=== PATIENT | male | born 1940 | race Caucasian/White ===

== ENCOUNTER 2022-10-27 17:12 | Observation (INO) | payer OTHER, SELFPAY ==
[2022-10-27] VITALS (9 sets, daily range): BP systolic 126–178; BP diastolic 63–97; PULSE 68–95; RESP 16–18; TEMP 36.3–36.6; O2SAT 94–98; BMI 25.8; BMI 26.6
--- NOTE | 2022-10-27 17:36 | ED_ITS ---
HPI - Weakness General Time Seen by Provider: 17:36 Date Seen: 10/27/22 Chief complaint: Weakness Stated complaint: Slurred speech, numb on right side Time Seen by Provider: 10/27/22 17:14 Source: patient and RN notes reviewed Mode of arrival: ambulatory Limitations: no limitations History of Present Illness HPI Narrative: Patient is an 82-year-old male that was found have slurred speech in the context of right hand numbness tingling that lasted maybe about a 1/2 hour. He came up stairs from where he was working. When ask him what he was doing, he last and states probably standing around. I note that he does look to his a lot when being question during his interview. He has since resolved. He has never had a history of a stroke. He is on Eliquis for history of atrial fibrillation with subsequent ablation and pacemaker placement. He did not feel any irregularity of his heart, no chest pain. He has a remote history of an GA in 2002. He does not feel any right hand numbness or tingling at this time. He is conversive and talkative, feels his speech is normal right now but she states it was definitely extremely slurred at the time. He obviously was able to walk as he came up the stairs. As far as functionality of his hand at the time, it is unknown. Denies any trauma or falls. MD Complaint: numbness and tingling Related Data Allergies Allergy/AdvReac Type Severity Reaction Status Date / Time amiodarone AdvReac Severe Anaphylaxis Verified 10/27/22 17:20 Review of Systems Status of ROS: Reports: 10 or more systems reviewed and unremarkable except as noted in History and below Exam Const: Vital Signs, click to edit/add: Vital Signs - 24 hr 10/27/22 17:20 10/27/22 17:42 10/27/22 18:01 Temperature 97.3 F L Pulse Rate 70 Pulse Rate [Right Pulse Oximeter] 95 Respiratory Rate 18 18 Blood Pressure 131/75 Blood Pressure [Ri ght Upper Arm] 159/83 H Pulse Oximetry 97 98 98 Oxygen Delivery Me thod Room Air Documenting provider has reviewed patient's vital signs: yes Common normals: no apparent distress, average body habitus, oriented x3, no limitations, healthy appearing and alert General appearance: cooperative, comfortable, well kempt and well developed HENMT: Common normals: normocephalic, head/scalp atraumatic, hearing grossly normal bilaterally, external ears normal, external nose normal, moist oral mucous membranes, oropharynx normal (Tongue protrudes midline), dentition normal and gingiva normal Head and scalp: normocephalic and atraumatic Nose: external nose normal External ear: external ears normal Eye: Common normals: PERRL, EOMs intact bilaterally, conjunctivae normal, no scleral icterus and normal visual navarro by confrontation Conjunctiva: conjunctiva(e) normal Pupil: PERRL Neck & C-Spine: Common normals: full ROM, no lymphadenopathy, supple, no meningeal signs and no JVD Resp: Common normals: normal respiratory effort, no retractions, no use of accessory muscles and clear to auscultation bilaterally Effort & inspection: able to speak in complete sentences Auscultation: clear to auscultation bilaterally Cardio: Common normals: no JVD, regular rate, regular rhythm, S1 normal heart sound, S2 normal heart sound, no gallops, no clicks and no murmurs Rate: regular rate Rhythm: regular rhythm Heart sounds: S1 normal and S2 normal GI: Common normals: Normal to inspection, nondistended, normoactive bowel sounds present, soft to palpation, non-tender, no hepatosplenomegaly and no masses Palpation: soft and no hepatosplenomegaly Extremity: Common normals: normal to inspection, full ROM and no pedal edema Neuro: [place] Coma Scale: document GCS findings [place] coma scale eye opening: Spontaneous (4) [place] coma scale verbal response: Orientated (5) [place] coma scale motor response: Obey commands (6) [place] coma scale total score: 15 Common normals: oriented x3, CN's II-XII intact bilaterally, moves all extremities, no focal motor deficits, no sensory deficits noted and gait normal Sensorium/orientation: alert Meningeal signs: no meningeal signs Coordination/balance: Normal rapid alternating movements of the distal upper extremity present (Neuro) (Is slower and deliberate in his movements but not ataxic/no dysmetria) Speech: speech normal Coordination: rapid alternating movement UE normal (Is slower and deliberate in his movements but not ataxic/no dysmetria) Other: Current NIH is 0, patient's symptoms had resolved. 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 Psych: Common normals: mental status grossly normal Appearance: well kempt Course Course Hospital Course: His symptoms have resolved, they are where to notify us if anything reoccurs. He will go get a noncontrast head CT as part of stroke evaluation. He will be on cardiac monitoring and pulse oximetry. We will get appropriate labs. Once his head CT has been done, I will talk to Stroke Neurology. Patient does have a moderate ABCD2 score of 4 points. Reevaluation(s) Reevaluation #1: Reviewed with patient and his that head CT showing no evidence of acute stroke but that we do believe his symptoms likely are related to a TIA. Patient does have a pacemaker, my plan with the stroke neurologist may not work as I do not see him having a pacemaker compatible with our MRI machine. I will have to call the neurologist back. Have discussed aspirin use as an anti-platelet agent . Have reviewed the rationale for this. Did review the possible increased risk of bleeding being on both the Eliquis and an 81 mg aspirin. At this time, benefit likely outweighs his risk. Time: 18:36 Consultations Consultation #1: Spoke with Dr. Garcia stroke neurologist on-call for [facility]. Reviewed the case. I do not have the formal reading on the head CT and will call him back if it is different than my preliminary assessment of being negative for acute stroke or bleed. He agreed at this point with not doing the CTA of head or neck as it is not likely going to change things. We have a patient on Eliquis with underlying history of atrial fibrillation. He thought that this likely would be small-vessel process versus embolic given the patient's anticoagulation. He would consider doing an 81 mg aspirin daily. He recommended an MRI without contrast, it is not likely that we will be able to get that until Saturday. He felt it prudent to hold patient over until then if possible. 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 Patient is on Lipitor 40 mg per his chart. He also recommended obtaining a lipid panel. He does feel that this certainly is consistent with a TIA. Time: 18:08 Consultation #2: Reviewed the pacemaker situation with Dr. Garcia. He recommended observing this patient overnight and if no changes, discharge home tomorrow to get set up for an appropriate outpatient MRI that is cardiac stay for him. This will likely have to be arranged through his primary care provider. He also recommended maximizing his lipid control, if LDL greater than 100 increasing his statin dosage. Time: 19:19 Consultation #3: Spoke with hospitalist Dr. Em, he will accept patient. Time: : Vital Signs Vital signs: Initial Vital Signs Temperature 97.3 F L 10/27/22 17:20 Temperature Source Temporal Artery Scan 10/27/22 17:20 Pulse Rate 95 10/27/22 17:20 Pulse Rhythm Regular 10/27/22 17:20 Pulse Strength 3+ Normal 10/27/22 17:20 Respiratory Rate 18 10/27/22 17:20 Blood Pressure 159/83 H 10/27/22 17:20 Blood Pressure Mean 108 10/27/22 17:20 Blood Pressure Position Sitting 10/27/22 17:20 Pulse Oximetry 97 10/27/22 17:20 Oxygen Delivery Method Room Air 10/27/22 17:20 Vital Signs Temperature 97.3 F L 10/27/22 17:20 Pulse Rate 95 10/27/22 17:20 Respiratory Rate 18 10/27/22 17:20 Blood Pressure 159/83 H 10/27/22 17:20 Pulse Oximetry 97 10/27/22 17:20 Oxygen Delivery Method Room Air 10/27/22 17:20 Temperature 97.3 F L 10/27/22 17:20 Pulse Rate 70 10/27/22 18:01 Respiratory Rate 18 10/27/22 18:01 Blood Pressure 131/75 10/27/22 18:01 Pulse Oximetry 98 10/27/22 18:01 Oxygen Delivery Method Room Air 10/27/22 17:20 MDM - Weakness Lab Data Attestation: I reviewed the patient's lab results. Labs: Lab Results 10/27/22 10/27/22 Range/Units 17:43 17:48 WBC 8.93 (4.50-11.00) K/uL RBC 4.06 L (4.30-5.90) m/uL Hgb 12.3 L (13.5-17.5) gm/dL Hct 36.3 L (37.0-53.0) % MCV 89 (80-100) fL MCH 30 (26-34) pg MCHC 34 (32-36) gm/dL RDW Coeff of Niyah 13.0 (11.5-15.5) % Plt Count 230 (140-440) K/uL Neut % (Auto) 57.4 (42.0-72.0) % Lymph % (Auto) 25.3 (20-44) % [place] % (Auto) 9.7 (0.0-11.0) % Eos % (Auto) 6.8 (0.0-7.0) % Baso % (Auto) 0.4 (0.0-3.0) % Neut # (Auto) 5.11 (1.7-7.0) K/uL Lymph # (Auto) 2.26 (0.90-2.90) K/uL [place] # (Auto) 0.90 (0.00-0.90) K/UL Eos # (Auto) 0.61 H (0.00-0.50) K/uL Baso # (Auto) 0.04 (0.00-0.30) K/uL Sodium 138 (135-149) mmol/L Potassium 4.9 (3.6-5.1) mmol/L Chloride 104 (96-114) mmol/L Carbon Dioxide 26 (20-32) mmol/L BUN 32 H (7-30) mg/dL Creatinine 1.1 (0.5-1.5) mg/dL Estimated Creat Clear 48.33 Estimated GFR 68 ml/min Glucose 70 (60-115) mg/dL Calcium 9.4 (8.4-10.6) mg/dL Total Bilirubin 0.5 (0.1-1.5) mg/dL AST 23 (12-35) U/L ALT 20 (4-50) U/L Alkaline Phosphatase 65 (40-150) U/L C-Reactive Protein < 0.5 L (0.5-1.0) mg/dL Total Protein 7.6 (6.0-8.3) g/dL Albumin 4.5 (3.3-5.0) g/dL SARS-CoV-2 (PCR) Negative SARS-CoV-2 (Negative) Imaging Data CT scan - head: Attestation: I have reviewed the pertinent imaging results. My impression: I appreciate no intracranial mass, no acute bleed, no acute infarct. Await Radiology over-read. Radiologist's impression: Patient: TORY CHOI Facility:?[facility] Patient ID:?[id number] Site Patient ID:?[id number]. Site :?[id number] Study:?CT Head Stroke protocol-10/27/2022 6:01:48 PM Ordering Physician:Arielle Martinez Final Report: INDICATION: Episode of slurred speech and right hand numbness/tingling. CT HEAD WITHOUT CONTRAST TECHNIQUE: Multiple axial CT images were performed through the head without intravenous contrast administration. COMPARISON: No previous studies are currently available for comparison. FINDINGS: No acute intracranial hemorrhage is identified. No extra-axial collections are evident and there is no mass effect or midline shift. There is mild diffuse age-related brain atrophy. Ventricular size and configuration are within normal limits for the patient`s age. Estrada-white differentiation is within normal limits. There is patchy hypodensity in the periventricular white matter, a nonspecific finding which most likely reflects chronic small vessel ischemic change. Intracranial atherosclerotic vascular calcifications are noted. Osseous structures are within normal limits and no fractures are seen. Included portions of the paranasal sinuses and mastoid air cells are normally aerated. IMPRESSION: 1. No acute intracranial abnormality identified. 2. Mild age-related brain atrophy, white matter hypodensity consistent with chronic small vessel ischemic change, and intracranial atherosclerotic vascular calcifications. ROLAN DICKERSON MD [facility] Please note that all CT scans at this facility use dose modulation, iterative reconstruction, and/or weight-based dosing when appropriate to reduce radiation dose to as low as reasonably achievable. Dictated by: Peyman Dickerson MD @ 10/27/2022 18:28:35 (Electronic Signature) Note results reviewed at 6:30 p.m.. ECG Data Attestation: I personally reviewed and interpreted this ECG as follows: (Atrial paced rhythm, 70 beats per minute. Q-waves through the anterior precordial lead with flipped T-waves. Some artifact. No definitive active ischemia. QT corrected 455 milliseconds.) ECG interpretation date: 10/27/22 ECG interpretation time: 17:47 Prior ECG tracings: not available for review Critical Care Time Critical Care Time Critical Care Time: No Discharge Plan Discharge Clinical Impression: TIA (transient ischemic attack) Patient Disposition: Admitted As Inpatient Condition: Stable Follow Up/Referrals: Hoang Agee MD [Primary Care Provider] -
--- NOTE | 2022-10-27 17:42 | CRLHL7_ITS ---
For Patients: As a result of the Century Cures Act, medical imaging exams and procedure reports are released immediately into your electronic medical record. You may view this report before your referring provider. If you have questions, please contact your health care provider. INDICATION: Episode of slurred speech and right hand numbness/tingling. CT HEAD WITHOUT CONTRAST TECHNIQUE: Multiple axial CT images were performed through the head without intravenous contrast administration. COMPARISON: No previous studies are currently available for comparison. FINDINGS: No acute intracranial hemorrhage is identified. No extra-axial collections are evident and there is no mass effect or midline shift. There is mild diffuse age-related brain atrophy. Ventricular size and configuration are within normal limits for the patient`s age. Estrada-white differentiation is within normal limits. There is patchy hypodensity in the periventricular white matter, a nonspecific finding which most likely reflects chronic small vessel ischemic change. Intracranial atherosclerotic vascular calcifications are noted. Osseous structures are within normal limits and no fractures are seen. Included portions of the paranasal sinuses and mastoid air cells are normally aerated. IMPRESSION: 1. No acute intracranial abnormality identified. 2. Mild age-related brain atrophy, white matter hypodensity consistent with chronic small vessel ischemic change, and intracranial atherosclerotic vascular calcifications. ROLAN DICKERSON MD [facility] Please note that all CT scans at this facility use dose modulation, iterative reconstruction, and/or weight-based dosing when appropriate to reduce radiation dose to as low as reasonably achievable. Dictated by: Peyman Dickerson MD @ 10/27/2022 18:28:35 (Electronically Signed)
[2022-10-27 17:49] LABS: Basophils Absolute Auto 0.04 K/uL (0.00-0.30); Basophils Percent Auto 0.4 % (0.0-3.0); Eosinophils Absolute Auto 0.61 K/uL (0.00-0.50); Eosinophils Percent Auto 6.8 % (0.0-7.0); Hematocrit 36.3 % (37.0-53.0); Hemoglobin* 12.3 gm/dL (13.5-17.5); Immature Granulocytes Abs Auto 0.04 K/uL (0.00-0.30); Immature Granulocytes Pct Auto 0.4 %; Lymphocytes Absolute Auto 2.26 K/uL (0.90-2.90); Lymphocytes Percent Auto 25.3 % (20-44); Mean Corpuscular HGB Conc 34 gm/dL (32-36); Mean Corpuscular Hemoglobin 30 pg (26-34); Mean Corpuscular Volume 89 fL (80-100); Monocytes Percent Auto 9.7 % (0.0-11.0); Neutrophils Absolute Auto 5.11 K/uL (1.7-7.0); Neutrophils Percent Auto 57.4 % (42.0-72.0); Platelet Count* 230 K/uL (140-440); Red Blood Count 4.06 m/uL (4.30-5.90); White Blood Count* 8.93 K/uL (4.50-11.00)
[2022-10-27 17:54] LABS: Chloride* 104 mmol/L (96-114); Slide Review Reflex No
[2022-10-27 17:55] LABS: Albumin* 4.5 g/dL (3.3-5.0); Potassium* 4.9 mmol/L (3.6-5.1); Sodium* 138 mmol/L (135-149)
[2022-10-27 17:58] LABS: Alanine Aminotransferase* 20 U/L (4-50); Alkaline Phosphatase* 65 U/L (40-150); Aspartate Amino Transferase* 23 U/L (12-35); Bilirubin Total* 0.5 mg/dL (0.1-1.5); Blood Urea Nitrogen* 32 mg/dL (7-30); Calcium* 9.4 mg/dL (8.4-10.6); Carbon Dioxide* 26 mmol/L (20-32); Creatinine* 1.1 mg/dL (0.5-1.5); Est. Creatinine Clearance* 48.33; Estimated Glomerular Filt Rate 68 ml/min; Glucose* 70 mg/dL (60-115); Total Protein* 7.6 g/dL (6.0-8.3)
[2022-10-27 18:08] LABS: C Reactive Protein* < 0.5 mg/dL (0.5-1.0)
[2022-10-27 18:33] LABS: SARS PCR* Negative SARS-CoV-2 (Negative)
[2022-10-27] MEDS: ASPIRIN 81 MG TAB.CHEW PO (19:05)
--- NOTE | 2022-10-27 19:46 | ED.NURSE ---
Pt is eating dinner at this time, a ham sandwich and chicken noodle soup. Pt tolerating well. Pt's wants to know if pt will be getting medications upstairs on med/surg and this nurse verified pt would be getting his nightly meds upstairs.
--- NOTE | 2022-10-27 19:54 | P.IMHP_ITS ---
Hospitalist- H&P: HPI History of Present Illness Date Seen: 11/23/22 Chief complaint: Slurred speech, numb on right side Narrative: Yosi Watson is a 82 year old male with PMhx of hypothyroidism, T2DM, CAD, AFlutter/Fib (on eliquis), GERD, ELISE presenting for right hand numbness. Earlier today he had episode of right hand and right face numbness. He denied arm weakness, slurred speech, headache and dizziness. He denies chest pain and palpitations. He presented to ED where CT head showed no acute findings. He has a pacemaker and is unable to get a MRI at [facility] per ED provider. His case was discussed with Stroke Neurology with recommendations for observation admission, tele monitoring, checkling lipid panel/a1c, neuro checks and outpatient MRI Brain if no acute events overnight. He currently feels back to baseline state. CT head IMPRESSION:? 1. No acute intracranial abnormality identified. 2. Mild age-related brain atrophy, white matter hypodensity consistent with chronic small vessel ischemic change, and intracranial atherosclerotic vascular calcifications. PMHx 11/30/2021 Hypothyroidism (acquired) 11/30/2021 Hypoxia 11/30/2021 Interstitial lung disease (HC) Date Unknown Ampullary adenoma Date Unknown Atrial flutter, paroxysmal (HC) Date Unknown Ibarra's esophagus Date Unknown Coronary atherosclerosis of unspecified type of vessel, [place] or graft Date Unknown Dyslipidemia Date Unknown GERD (gastroesophageal reflux disease) Date Unknown Hypertension Date Unknown ELISE (obstructive sleep apnea) Date Unknown Tachy-aftab syndrome (HC) Date Unknown Type II or unspecified type diabetes mellitus without mention of complication, not stated as uncontrolled Date Unknown Wide-complex tachycardia Surgical History? 13 items 10/06/2020 Esophagoscopy / egd 09/06/2020 Ercp 08/18/2020 EGD with Bicap [Other] 2019 Cataract extraction 04/16/2019 Esophagoscopy / egd 11/2018 Esophagogastroduodenoscopy 07/07/2014 Esophagogastroduodenoscopy 11/03/2013 Esophagogastroduodenoscopy [id number] Esophagogastroduodenoscopy Date Unknown Colonoscopy diagnostic Date Unknown Endoscopy Date Unknown Esophagogastroduodenoscopy Date Unknown Pacemaker placement Tobacco History? 6 items Smoking Status Former Started 07/22/1956 - 07/22/1966 Quit Types Cigarettes from 07/22/1956 to 07/22/1966 Amount Average: 2.0 packs/day for 10.0 years; Pack years: 20.0 Pack Year History 0 packs/day, Started 07/22/1966; 2 packs/day, 07/22/1956 - 07/22/1966 (10.0 years) Smokeless Tobacco Status Never Vaping/E-Liquid Use Questions Responses Vaping/E-Liquid Use Never User Counseling Given? Yes Review of Systems Status of ROS: Reports: 10 or more systems reviewed and unremarkable except as noted in History and below [facility] Medical History (Updated 11/13/22 @ 08:05 by Khushbu Rowan ~ PSR) Ampullary adenoma ?D13.5 - Benign neoplasm of extrahepatic bile ducts (ICD-10) Pacemaker ?Z95.0 - Presence of cardiac pacemaker (ICD-10) Hypothyroidism ?E03.9 - Hypothyroidism, unspecified (ICD-10) Interstitial lung disease ?J84.9 - Interstitial pulmonary disease, unspecified (ICD-10) ELISE on CPAP ?G47.33 - Obstructive sleep apnea (adult) (pediatric) (ICD-10) ?Z99.89 - Dependence on other enabling machines and devices (ICD-10) DM2 (diabetes mellitus, type 2) ?E11.9 - Type 2 diabetes mellitus without complications (ICD-10) Heart failure with preserved ejection fraction ?I50.30 - Unspecified diastolic (congestive) heart failure (ICD-10) Paroxysmal atrial flutter ?I48.92 - Unspecified atrial flutter (ICD-10) Ibarra esophagus ?K22.70 - Ibarra's esophagus without dysplasia (ICD-10) TIA (transient ischemic attack) ?G45.9 - Transient cerebral ischemic attack, unspecified (ICD-10) Surgical History (Updated 10/28/22 @ 12:08 by Anisha Robledo MD) History of esophagogastroduodenoscopy (EGD) ?Z98.890 - Other specified postprocedural states (ICD-10) Social History Smoking Status: Never smoker Do you use any of these nicotine containing products: None Second hand tobacco smoke exposure: No How often do you have a drink containing alcohol: never AUDIT-C Alcohol total score: 0 Non-prescribed substance use: denies use Caffeine: No Meds Home Medications and Allergies Home Medications Medication Instructions Recorded Confirmed Type apixaban 5 mg tablet (Eliquis) 5 mg PO BID 10/28/22 10/28/22 History glipizide 10 mg tablet 10 mg PO DAILY 10/28/22 10/28/22 History levothyroxine 50 mcg tablet 50 mcg PO DAILY 10/28/22 10/28/22 History metformin 500 mg tablet,extended 500 mg PO BID 10/28/22 10/28/22 History release 24 hr metoprolol succinate 50 mg 50 mg PO DAILY 10/28/22 10/28/22 History tablet,extended release 24 hr omeprazole 20 mg capsule,delayed 20 mg PO BID 10/28/22 10/28/22 History release sotalol 120 mg tablet 120 mg PO BID 10/28/22 10/28/22 History tamsulosin 0.4 mg capsule 0.4 mg PO DAILY 10/28/22 10/28/22 History Home Medication Comments: med rec pending Allergies Allergy/AdvReac Type Severity Reaction Status Date / Time amiodarone AdvReac Severe Anaphylaxis Verified 10/27/22 17:20 Exam Narrative: Exam Narrative: Gen: no acute distress HEENT: NCAT EOMI mmm Neck: Supple CV: RRR normal s1 s2 Lungs: CTAB Abd: Soft,nt, nd Neuro: Alert, oriented, CN grossly intact; nonfocal screening exam Psych: appropriate affect MSK: age appropriate muscle mass Skin; Warm, dry no rash on face Ext: trace pedal edema Const: Vital Signs, click to edit/add: Vital Signs - 24 hr 10/27/22 17:20 10/27/22 17:42 10/27/22 18:01 Temperature 97.3 F L Pulse Rate 70 Pulse Rate [Right Pulse Oximeter] 95 Respiratory Rate 18 18 Blood Pressure 131/75 Blood Pressure [Ri ght Upper Arm] 159/83 H Pulse Oximetry 97 98 98 Oxygen Delivery Me thod Room Air 10/27/22 19:47 10/27/22 19:34 10/27/22 17:48 Temperature Pulse Rate 70 68 68 Pulse Rate [Right Pulse Oximeter] Respiratory Rate 18 18 18 Blood Pressure 161/85 H 151/84 H 161/85 H Blood Pressure [Ri ght Upper Arm] Pulse Oximetry 98 98 98 Oxygen Delivery Me thod 10/27/22 17:42 Temperature Pulse Rate 72 Pulse Rate [Right Pulse Oximeter] Respiratory Rate 16 Blood Pressure 178/97 H Blood Pressure [Ri ght Upper Arm] Pulse Oximetry 98 Oxygen Delivery W[place] thod Hospitalist - H&P: Result Labs Labs: Short CBC 10/27/22 Range/Units 17:43 WBC 8.93 (4.50-11.00) K/uL Hgb 12.3 L (13.5-17.5) gm/dL Hct 36.3 L (37.0-53.0) % Plt Count 230 (140-440) K/uL BMP 10/27/22 17:43 Sodium 138 Potassium 4.9 Chloride 104 Carbon Dioxide 26 BUN 32 H Creatinine 1.1 Glucose 70 Calcium 9.4 Liver Function 10/27/22 Range/Units 17:43 Total Bilirubin 0.5 (0.1-1.5) mg/dL AST 23 (12-35) U/L ALT 20 (4-50) U/L Alkaline Phosphatase 65 (40-150) U/L Albumin 4.5 (3.3-5.0) g/dL Assessment and Plan Assessment and plan (1) TIA (transient ischemic attack): Status: Inactive Plan Yosi Watson is a 82 year old male with PMhx of hypothyroidism, T2DM, CAD, AFlutter/Fib (on eliquis), GERD, ELISE presenting for right hand numbness. Earlier today he had episode of right hand and right face numbness that has since resolved. He presented to ED where CT head showed no acute findings. He has a pacemaker and is unable to get a MRI at [facility] per ED provider. His case was discussed with Stroke Neurology with recommendations for observation admission, tele monitoring, checkling lipid panel/a1c, neuro checks and outpatient MRI Brain if no acute events overnight. He currently feels back to baseline state. 1. Presumed TIA; currently back to baseline state 2. Hx of Hypothyroidism 3. Hx of T2DM; hold metformin 4. Hx of CAD 5. Hx of Aflutter/Fib on Eliquis 6. Hx of GERD 7. Hx of ELISE Plan -admit to obs -resume home eliquis tonight -tele -neuro checks -permissive htn -lipid panel and a1c -outpatient MRI -anticipated discharge tomorrow med rec pending will need review [facility]
--- NOTE | 2022-10-27 22:47 | PC.NURSE ---
pt to floor at 2014. Ambulates indep. Pleasant and cooperative. States he no longer feels tingly sensation in his hand and that his speech is back to baseline. Tele = Paced. Pt states he has ELISE, will monitor O2 when pt asleep.
[2022-10-28] MEDS: APIXABAN 5 MG TABLET PO ×2 (01:01→08:49)
[2022-10-28 03:00] VITALS: RESP 18; TEMP 36.7; O2SAT 95
--- NOTE | 2022-10-28 05:44 | PC.NURSE ---
Shift note: Pt is doing well. No numbness reported this shift. Pt had adequate sleep. Able to walk to the BR by himself without any help. Pleasant and cooperate with care. Vitally stable.
[2022-10-28 07:00] VITALS: BP 154/87; RESP 16; TEMP 36.7; O2SAT 95
--- NOTE | 2022-10-28 07:45 | PM.DS1 ---
DS: Providers Provider Date Seen: 10/28/22 Date of admission: 10/27/22 20:09 Primary care physician: Hoang Agee MD Admitting Clinician: Wilian Em MD Attending Physician on discharge: Anisha Robledo MD Date of Discharge: 10/28/22 DS: Diagnosis Discharge Diagnosis (1) TIA (transient ischemic attack): Status: Acute (2) Heart failure with preserved ejection fraction: Status: Acute Problem details: - last stress Echo 09/2021: IMPRESSION 1. Adequate pharmacologic stress test with regadenoson. 2. The pharmacologic stress ECG was nondiagnostic due to paced rhythm. 3. Myocardial perfusion was abnormal. There was a medium-sized area of moderate to severe transmural infarction in the apical anterior and anteroseptal quintanilla. 4. No significant ischemia was identified. 5. Left ventricular cavity size was normal (resting EDV 108 ml). 6. Overall left ventricular systolic function was abnormal with regional akinesis of the apical anterior and septal quintanilla and the apex. The stress LVEF was calculated to be 54 %. 7. Stress myocardial blood flow was abnormal at 1.0 ml/min/g and myocardial flow reserve was abnormal at 1.3. 8. Compared to prior study of 12/03/2015, there is no significant change. (3) DM2 (diabetes mellitus, type 2): Status: Acute Problem details: - A1C <6.4 10/2022 (4) ELISE on CPAP: Status: Acute (5) Interstitial lung disease: Status: Deleted (6) Pacemaker: Status: Acute DS: Summary Hospital Course Hospital Course: 82-year-old male, presented to the ER on 10/27 with concerns of upper extremity weakness and dysarthria. Imaging in the emergency room was reassuring, Stroke Neurology recommended overnight monitoring with telemetry and outpatient evaluation with MRI and echocardiogram if patient remained stable. When I see Yosi on hospital day 1, he is dressed and ready to go home. He has no concerns for the hospitalist team and feels back to baseline; telemetry and vital signs reassuring overnight. His PCP is Dr. Agee locally. He will see Dr. Agee in 7-10 days to schedule an outpatient MRI and echocardiogram. The only change made to home medications upon discharge was doubling his statin from 40-80 mg, no other changes made during stay. Status at Discharge Functional status at discharge: independent ambulation Overall status at discharge: patient is back to baseline Time Spent with Patient Time attestation: Total time spent providing and/or coordinating discharge services: Time spent: Greater than 30 minutes Specific discharge activities: Medication reconciliation, care coordination, chart review Exam Narrative: Exam Narrative: GEN: Alert and oriented, sitting comfortably in bedside chair HEENT: No facial droop, PERRL and EOMIs bilaterally, no scleral icterus CV: RRR, No concerning murmurs, no carotid bruits R: LCTA bilaterally without concerning wheezing, rales, or rhonchi Ext: wwp, no concerning edema Skin: No concerning skin lesions or rashes on exposed skin Neuro: Normal sensation, speech fluent, no dysmetria on [id number] testing, no pronator drift, normal in symmetric rapid alternating movements, gait normal Psych: Appropriate Const: Vital Signs, click to edit/add: Vital Signs - 24 hr 10/27/22 17:20 10/27/22 17:42 10/27/22 18:01 Temperature 97.3 F L Pulse Rate 70 Pulse Rate [Right Pulse Oximeter] 95 Respiratory Rate 18 18 Blood Pressure 131/75 Blood Pressure [Le ft Arm] Blood Pressure [Ri ght Upper Arm] 159/83 H Pulse Oximetry 97 98 98 Oxygen Delivery Ut thod Room Air 10/27/22 19:47 10/27/22 19:34 10/27/22 17:48 Temperature Pulse Rate 70 68 68 Pulse Rate [Right Pulse Oximeter] Respiratory Rate 18 18 18 Blood Pressure 161/85 H 151/84 H 161/85 H Blood Pressure [Le ft Arm] Blood Pressure [Ri ght Upper Arm] Pulse Oximetry 98 98 98 [facility] 10[facility] 17:42 10/27/22 21:24 10/27/22 21:24 Temperature Pulse Rate 72 Pulse Rate [Right Pulse Oximeter] Respiratory Rate 16 18 18 Blood Pressure 178/97 H Blood Pressure [Le ft Arm] 174/97 H Blood Pressure [Ri ght Upper Arm] Pulse Oximetry 98 94 94 [facility] Room Air 10/27/22 21:25 10/27/22 23:00 10/27/22 23:00 Temperature Pulse Rate 70 70 Pulse Rate [Right Pulse Oximeter] Respiratory Rate 18 Blood Pressure Blood Pressure [Le ft Arm] Blood Pressure [Ri ght Upper Arm] Pulse Oximetry Oxygen Delivery Me thod 10/27/22 23:00 10/28/22 03:00 Temperature 97.8 F 98.1 F Pulse Rate Pulse Rate [Right Pulse Oximeter] Respiratory Rate 18 18 Blood Pressure Blood Pressure [Le ft Arm] 126/63 Blood Pressure [Ri ght Upper Arm] Pulse Oximetry 95 95 Oxygen Delivery Me thod Room Air Room Air DS: Data Data Completed and Pending Labs on day of discharge: Labs from last 24 hours 10/28/22 10/27/22 10/27/22 06:30 17:48 17:43 WBC 8.93 RBC 4.06 L Hgb 12.3 L Hct 36.3 L MCV 89 MCH 30 MCHC 34 RDW Coeff of Niyah 13.0 Plt Count 230 Neut % (Auto) 57.4 Lymph % (Auto) 25.3 [place] % (Auto) 9.7 Eos % (Auto) 6.8 Baso % (Auto) 0.4 Neut # (Auto) 5.11 Lymph # (Auto) 2.26 [place] # (Auto) 0.90 Eos # (Auto) 0.61 H Baso # (Auto) 0.04 Sodium 138 Potassium 4.9 Chloride 104 Carbon Dioxide 26 BUN 32 H Creatinine 1.1 Estimated Creat Clear 48.33 Estimated GFR 68 Glucose 70 Hemoglobin A1c Pending Calcium 9.4 Total Bilirubin 0.5 AST 23 ALT 20 Alkaline Phosphatase 65 C-Reactive Protein < 0.5 L Total Protein 7.6 Albumin 4.5 Triglycerides Pending Cholesterol Pending LDL Cholesterol, Calc Pending HDL Cholesterol Pending SARS-CoV-2 (PCR) Negative SARS-CoV-2 Discharge Plan Discharge Disposition: Home, Self-Care Date of Admission: 10/27/22 20:09 Attending Provider on Discharge: Anisha Robledo Primary Care Provider: Hoang Agee Condition: Stable Anticipated Discharge Date/Time: 10/28/22 07:42 Discharge Medications: New atorvastatin 80 mg tablet 80 mg PO QHS Qty: 90 3RF Continued metoprolol succinate 50 mg tablet extended release 24 hr 50 mg PO DAILY glipizide 10 mg tablet 10 mg PO DAILY sotalol 120 mg tablet 120 mg PO BID tamsulosin 0.4 mg capsule 0.4 mg PO DAILY levothyroxine 50 mcg tablet 50 mcg PO DAILY omeprazole 20 mg capsule,delayed release(DR/EC) 20 mg PO BID metformin 500 mg tablet extended release 24 hr 500 mg PO BID Eliquis 5 mg tablet 5 mg PO BID Discontinued atorvastatin 40 mg tablet 40 mg PO DAILY Discharge Orders: Discharge Order (Routine); Ordered 10/28/22 Ordered By: Anisha Robledo Patient Education: Transient Ischemic Attack (DC) Additional Instructions: See Dr. Agee next week for a hospital followup and to schedule your MRI. You need to DOUBLE your atorvastatin (Lipitor) from 40mg to 80mg - just take 2 of the tabs that you have at home and Dr. Agee can send in a new prescription. Activity Level: No strenuous activity Discharge Diet: Heart Healthy (2 gm sodium, low fat) Follow Up Appointments: Hoang Agee MD [Primary Care Provider] - 11/14/22 10:00 am ([facility] Schedule [facility] and Echo ) [facility] Discharge Comments: Schedule MRI and Echo
[2022-10-28 07:49] LABS: Cholesterol* 128 mg/dL (90-199); Triglycerides* 210 mg/dL (40-149)
[2022-10-28 07:50] LABS: HDL Cholesterol* 35 mg/dL (>=40); LDL Cholesterol Calculated 51 mg/dL (<100)
[2022-10-28 08:00] VITALS: BP 161/85; PULSE 70; RESP 18; TEMP 36.7
[2022-10-28] MEDS: LEVOTHYROXINE 50 MCG TABLET PO (08:48)
[2022-10-28] MEDS: glipiZIDE 5 MG TABLET 10 MG PO (08:48)
[2022-10-28] MEDS: OMEPRAZOLE 20 MG CAPSULE DR PO (08:48)
[2022-10-28] MEDS: METFORMIN ER 500 MG PO (08:48)
[2022-10-28] MEDS: TAMSULOSIN HCL 0.4 MG CAPSULE PO (08:48)
[2022-10-28] MEDS: METOPROLOL SUCCINATE (XL) 50 MG TAB PO (08:49)
[2022-10-28] MEDS: SOTALOL HCL 120 MG TABLET PO (08:49)
--- NOTE | 2022-10-28 09:43 | PC.NURSE ---
Discharge: pt. discharged at 0920 accompanied by spouse. Pt. alert and oriented x4. Pt. VSS, BP slightly elevated, BG 148 no insulin required, Afebrile and denies pain, N/V/SOB/ Pt's IV removed intact. Discharge instructions given and signed. Pt. and spouse verbalized understanding of instructions. Belongings sheet signed.
[2022-10-28 11:08] LABS: Hemoglobin A1C* 6.38 % (0-5.6)
== END 2022-10-28 09:20 | disposition home or self-care (01) ==
LOC: ED 19:26 → MEDSURG 20:10
PROVIDERS: Admitting Provider Hospitalist; Emergency Provider Family Medicine; PCP Family Medicine; Visit Provider Hospitalist
DX: G45.9 Transient cerebral ischemic attack, unspecified; I50.31 Acute diastolic (congestive) heart failure; I11.0 Hypertensive heart disease with heart failure; K21.9 Gastro-esophageal reflux disease without esophagitis; R47.1 Dysarthria and anarthria; R20.0 Anesthesia of skin; E78.5 Hyperlipidemia, unspecified; E03.9 Hypothyroidism, unspecified; M62.81 Muscle weakness (generalized); I48.91 Unspecified atrial fibrillation; E11.9 Type 2 diabetes mellitus without complications; G47.33 Obstructive sleep apnea (adult) (pediatric); Z99.89 Dependence on other enabling machines and devices; Z79.84 Long term (current) use of oral hypoglycemic drugs; Z79.01 Long term (current) use of anticoagulants; Z86.79 Personal history of other diseases of the circulatory system; Z87.891 Personal history of nicotine dependence; Z98.890 Other specified postprocedural states; Z95.0 Presence of cardiac pacemaker; I25.2 Old myocardial infarction
CPT/HCPCS: 36415; 70450; 80053; 80061; 82962; 83036; 84484; 85025; 86140; 87635; 93005; 94761; 99284; 99285; G0378; A9270

== ENCOUNTER 2024-04-20 12:49 | Outpatient (CLI) | payer OTHER, SELFPAY ==
--- OUTSIDE RECORDS SUMMARY | 2024-04-20 12:53 | XMS_ITS | Continuity of Care Document ---
Author Name [facility] Organization [facility] Care Team Providers Care Pourer Crane Ladle Name Role Phone [facility] Unavailable Unavailable Problems Combined list of problems from Department of [facility] and Veterans Affairs facilities. It does not include entries that were removed or entered in error. 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 [facility] Chronic hypoxemic respiratory failure Active Condition [facility] Coronary heart disease Active Condition [facility] Endocrine pancreatic adenoma Active Condition Oct 25, 2023 Entered By: DAYNE GOMEZ RD Comment: s/p resection via ERCP [facility] History of placement of stent for coronary artery disease Active Condition [facility] Hyperlipidemia Active Condition [facility] Hypothyroidism Active Condition [facility] Long-Term Current Use of Anticoagulant (SCT [id number]) Active Condition [facility] Obstructive sleep apnea Active Condition [facility] Pulmonary hypertension Active Condition [facility] Tachycardia Active Condition Oct 25, 2023 Entered By: DAYNE GOMEZ RD Comment: Wide complex tachycardia [facility] Transient cerebral ischemia Active Condition [facility] Type 2 diabetes mellitus Active Condition [facility] Diagnosis: ICD-10-CM J84.9 Interstitial pulmonary disease, unspecified Active Diagnosis [facility] Diagnosis: ICD-10-CM Z79.01 watermaster (current) use of anticoagulants Active Diagnosis [facility] Diagnosis: ICD-10-CM I48.91 Unspecified atrial fibrillation Active Diagnosis [facility] Medications Combined list of outpatient medications from Department of [facility] and Veterans Affairs facilities.Medications provided include 1) outpatient medications from the last 15 months, and 2) patient-reported medications. Medication Details Route Status Patient Instructions Prescription Expires Prescription Number Last Dispense Date Ordering Provider Order Date Order Qty Source APIXABAN 5MG TAB APIXABAN 5MG TAB Active TAKE ONE TABLET BY MOUTH EVERY 12 HOURS TO PREVENT STROKES TO PREVENT STROKES Nov 13, 2023 180 Nov 13, 2024 [id number] A Feb 07, 2024 POPATEL ROSELINE Borden [facility] ORAL ACTIVE 11/13/2024 [id number] POPATELROSELINE Suha [address] [facility] APIXABAN 5MG TAB APIXABAN 5MG TAB Disconti nued TAKE ONE TABLET BY MOUTH EVERY 12 HOURS TO PREVENT STROKES TO PREVENT STROKES Oct 25, 2023 60 November 24, 2023 [id number] Oct 29, 2023 LISSETH GOMEZ [facility] ORAL DISCONT INUED 11/24/2023 [id number] LISSETH GOMEZ 2023 60 [facility] ASCORBIC ACID 500MG TAB ASCORBIC ACID 500MG TAB Non-VA TAKE ONE TABLET BY MOUTH EVERY DAY FOR VITAMIN C SUPPLEME NT Oct 25, 2023 Non-VA Document ed by: LISSETH GOMEZ Document ed at: [facility] ORAL ACTIVE LISSETH GOMEZ 2023 [facility] ATORVASTATI N CA 80MG TAB ATORVAST ATIN CA 80MG TAB Non-VA TAKE ONE TABLET BY MOUTH EVERY DAY FOR CHOLESTE ROL Oct 25, 2023 Non-VA Document ed by: LISSETH GOMEZ Document ed at: [facility] ORAL ACTIVE LISSETH GOMEZ 2023 [facility] CHOLECALCIF KALEN 10MCG (400UNIT) TAB CHOLECAL CIFEROL 10MCG (400UNIT ) TAB Non-VA TAKE TWO TABLETS BY MOUTH DAILY FOR VITAMIN D Oct 25, 2023 Non-VA Document ed by: LISSETH GOMEZ Document ed at: [facility] ORAL ACTIVE LISSETH GOMEZ [address] [facility] FISH OIL 1000MG (500MG DHA/EPA) CAP,ORAL FISH OIL 1000MG (500MG DHA/EPA) CAP,ORAL Non-VA TAKE 1 CAPSULE BY MOUTH DAILY FOR SUPPLEME NT Oct 25, 2023 Non-VA Document ed by: LISSETH GOMEZ Document ed at: [facility] ORAL ACTIVE LISSETH GOMEZ 2023 [facility] GLIPIZIDE 10MG TAB GLIPIZID E 10MG TAB Non-VA TAKE ONE TABLET BY MOUTH EVERY DAY FOR DIABETES Oct 25, 2023 Non-VA Document ed by: LISSETH GOMEZ Document ed at: [facility] ORAL ACTIVE LISSETH GOMEZ 2023 [facility] LEVOTHYROXI NE NA 50MCG TAB (SYNTHROID) LEVOTHYR OXINE NA 50MCG TAB (SYNTHRO ID) Non-VA TAKE ONE TABLET BY MOUTH EVERY DAY FOR THYROID Oct 25, 2023 Non-VA Document ed by: LISSETH GOMEZ Document ed at: [facility] ORAL ACTIVE LISSETH GOMEZ 2023 [facility] LUTEIN CAP/TAB LUTEIN CAP/TAB Non-VA TAKE 20 MG BY MOUTH DAILY [facility] Oct 25, 2023 Non-VA Document ed by: LISSETH GOMEZ Document ed at: [facility] ORAL ACTIVE LISSETH GOMEZ 2023 [facility] METFORMIN HCL 500MG 24HR TAB,SA METFORMI N HCL 500MG 24HR TAB,SA Non-VA TAKE ONE TABLET BY MOUTH TWICE A DAY FOR DIABETES Oct 25, 2023 Non-VA Document ed by: LISSETH GOMEZ Document ed at: [facility] ORAL ACTIVE LISSETH GOMEZ [address] [facility] METOPROLOL SUCCINATE 50MG TAB,SA METOPROL OL SUCCINAT E 50MG TAB,SA Non-VA TAKE ONE TABLET BY MOUTH DAILY FOR ATRIAL FIBRILLA TION Oct 25, 2023 Non-VA Document ed by: LISSETH GOMEZ Document ed at: [facility] ORAL ACTIVE LISSETH GOMEZ 2023 [facility] MULTIVITAMI N/MINERALS SENIOR FORMULA TAB MULTIVIT URENA/MIN ERALS SENIOR FORMULA TAB Non-VA TAKE ONE TABLET BY MOUTH DAILY FOR SUPPLEME NT Oct 25, 2023 Non-VA Document ed by: LISSETH GOMEZ Document ed at: [facility] ORAL ACTIVE LISSETH GOMEZ 2023 [facility] NITROGLYCER IN 0.4MG TAB,SUBLING UAL NITROGLY CERIN 0.4MG TAB,SUBL INGUAL Non-VA DISSOLVE ONE TABLET UNDER THE TONGUE EVERY 5 MINUTES FOR UP TO 3 DOSES IF NEEDED NEEDED FOR CHEST PAIN Oct 25, 2023 Non-VA Document ed by: LISSETH GOMEZ Document ed at: [facility] SUBLIN GUAL ACTIVE LISSETH GOMEZ 2023 [facility] OMEPRAZOLE 20MG CAP,EC OMEPRAZO LE 20MG CAP,EC Non-VA TAKE 1 CAPSULE BY MOUTH TWICE A DAY Ibarra' s esophagu s Oct 25, 2023 Non-VA Document ed by: LISSETH GOMEZ Document ed at: [facility] ORAL ACTIVE LISSETH GOMEZ 2023 [facility] PIRFENIDONE 267MG CAP,ORAL PIRFENID ONE 267MG CAP,ORAL Active TAKE ONE CAPSULE BY MOUTH THREE TIMES A DAY FOR 7 DAYS, THEN TAKE TWO CAPSULES THREE TIMES A DAY FOR 7 DAYS, THEN TAKE THREE CAPSULES THREE TIMES A DAY FOR PULMONAR Y FIBROSIS TAKE WITH FOOD. FOR PULMONAR Y FIBROSIS Apr 14, 2024 270 May 21, 2024 [id number] Apr 14, 2024 UCHE LAWSON [facility] ORAL ACTIVE 05/21/2024 [id number] UCHE LAWSON 2023 270 [facility] SOTALOL HCL 120MG TAB SOTALOL HCL 120MG TAB Non-VA TAKE ONE TABLET BY MOUTH TWO TIMES A DAY Atrial fibrilla tion Oct 25, 2023 Non-VA Document ed by: LISSETH GOMEZ Document ed at: [facility] ORAL ACTIVE LISSETH GOMEZ 2023 [facility] TAMSULOSIN HCL 0.4MG CAP TAMSULOS IN HCL 0.4MG CAP Non-VA TAKE 1 CAPSULE BY MOUTH DAILY FOR PROSTATE Oct 25, 2023 Non-VA Document ed by: LISSETH GOMEZ Document ed at: [facility] ORAL ACTIVE LISSETH GOMEZ 2023 [facility] TRIAMCINOLO NE ACETONIDE 0.1% CREAM,TOP TRIAMCIN OLONE ACETONID E 0.1% CREAM,TO P Non-VA APPLY A THIN LAYER TOPICALL Y THREE TIMES A DAY NEEDED FOR DERMATIT IS Oct 25, 2023 Non-VA Document ed by: LISSETH GOMEZ Document ed at: [facility] TOPICA L ACTIVE LISSETH GOMEZ 2023 [facility] Allergies, Adverse Reactions, Alerts Combined list of allergies from Department of Defense and Veterans Affairs facilities. It does not include entries that were removed or entered in error. Substance Category Reaction Severity Reaction type Status Date Reported Comments Source AMIODARONE Propensity to adverse reactions to drug (finding) Respiratory distress active 4 [facility] GOLDENROD POLLEN Propensity to adverse reaction (finding) Urticaria active 4 [facility] Immunizations Combined list of available immunizations from the Department of Defense and Veterans Affairs facilities. Immunization Series Date Given Administered By Site Reaction Lot Number CVX Code Drug Pipe Fitter Status Comments Source COVID-19 (Xetawave), MRNA, LNP-S, PF, VINOD-SUCROSE, 30 MCG/0.3 ML (AGES 12+ YEARS) 2022 309 complet [facility] INFLUENZA VACCINE, QUADRIVALENT, ADJUVANTED 2022 205 complet [facility] RSV, RECOMBINANT, PROTEIN SUBUNIT RSVPREF, ADJUVANT RECONSTITUTED , 0.5 ML, PF 2022 303 complet [facility] PNEUMOCOCCAL CONJUGATE PCV20, POLYSACCHARID E [id number] CONJUGATE, ADJUVANT, PF 2022 216 complet [facility] COVID-19 (PFIZER), MRNA, LNP-S, BIVALENT, PF, 30 MCG/0.3 ML DOSE 2021 300 complet [facility] INFLUENZA VACCINE, QUADRIVALENT, ADJUVANTED 2021 205 complet [facility] COVID-19 (PFIZER), MRNA, LNP-S, PF, 30 MCG/0.3 ML DOSE, VINOD-SUCROSE (AGES 12+ YEARS) 2021 217 complet [facility] COVID-19 (PFIZER), MRNA, LNP-S, PF, 30 MCG/0.3 ML DOSE 2020 208 complet [facility] INFLUENZA, HIGH-DOSE, QUADRIVALENT 2020 197 complet [facility] COVID-19 (PFIZER), MRNA, LNP-S, PF, 30 MCG/0.3 ML DOSE 2020 208 complet [facility] COVID-19 (PFIZER), MRNA, LNP-S, PF, 30 MCG/0.3 ML DOSE 2020 208 complet [facility] ZOSTER RECOMBINANT 2019 187 complet ed [facility] INFLUENZA, HIGH-DOSE, QUADRIVALENT 2019 197 complet ed [facility] ZOSTER RECOMBINANT 2019 187 complet ed [facility] INFLUENZA, TRIVALENT, ADJUVANTED 2018 168 complet ed [facility] INFLUENZA, TRIVALENT, ADJUVANTED 2017 168 complet ed [facility] INFLUENZA, TRIVALENT, ADJUVANTED 2016 168 complet ed [facility] TDAP 2016 115 complet ed [facility] INFLUENZA, HIGH DOSE SEASONAL 2015 135 complet ed [facility] INFLUENZA, HIGH DOSE SEASONAL 2014 135 complet ed [facility] PNEUMOCOCCAL CONJUGATE PCV 13 2014 133 complet ed [facility] INFLUENZA, HIGH DOSE SEASONAL 2013 135 complet ed [facility] INFLUENZA, SEASONAL, INJECTABLE 2011 141 complet ed [facility] ZOSTER LIVE 2009 121 complet ed [facility] PNEUMOCOCCAL POLYSACCHARID E PPV23 2006 33 complet ed [facility] TDAP 2006 115 complet ed [facility] INFLUENZA, SEASONAL, INJECTABLE 2003 141 complet ed [facility] Vital Signs Combined list of inpatient and outpatient Vital Signs from Department of Defense and Veterans Affairs, ranging from 12 months to all on record, depending upon the facility. Vital Sign Value Date Comments Source SYSTOLIC BLOOD PRESSURE 118 03/16/2024 10:58:04 [facility] DIASTOLIC BLOOD PRESSURE 77 03/16/2024 10:58:04 [facility] PULSE OXIMETRY 88 03/16/2024 10:58:04 M [facility] WEIGHT 159 03/16/2024 10:58:04 [facility] BMI 27kg/m2 03/16/2024 10:58:04 [facility] PAIN 0 03/16/2024 10:58:04 [facility] HEIGHT 65 03/16/2024 10:58:04 [facility] TEMPERATURE 97.4 03/16/2024 10:58:04 [place] [facility] PULSE 68 03/16/2024 10:58:04 [facility] RESPIRATION 18 03/16/2024 10:58:04 [facility] SYSTOLIC BLOOD PRESSURE 165 10/10/2023 08:58:04 [facility] DIASTOLIC BLOOD PRESSURE 86 10/10/2023 08:58:04 [facility] PULSE OXIMETRY 93 10/10/2023 08:58:04 [facility] WEIGHT 159.7 10/10/2023 08:58:04 [facility] BMI 25kg/m2 10/10/2023 08:58:04 [facility] PAIN 0 10/10/2023 08:58:04 [facility] HEIGHT 66.5 10/10/2023 08:58:04 [facility] TEMPERATURE 97.4 10/10/2023 08:58:04 [facility] PULSE 70 10/10/2023 08:58:04 [facility] RESPIRATION 16 10/10/2023 08:58:04 [facility] Encounters Combined list of: 1) Encounters from Department of Veterans Affairs facilities going back up to thelast 18 months. 2) Encounters from the Department of Defense facilities going back up to 280 months. Location Location Details Encounter Type Encounter Number Reason For Visit Attending Provider ADM Date DC Date Status Disposition Source [place] [facility] Outpatient Encounter [id number] 01/02 [facility] [place] [facility] Outpatient Encounter [id number] 03/06 [facility] [place] [facility] Outpatient Encounter [id number] 04/26 [facility] [place] [facility] [place] 60 MIN [id number] Diagnos is: ICD-10- CM I48.91 Unspeci fied atrial fibrill ation<b r/> Evangelista GOMEZ 10/09 [facility] [place] [facility] Outpatient Encounter [id number] 10/09 [facility] [place] [facility] Outpatient Encounter [id number] Evangelista GOMEZ [facility] [place] [facility] [place] [facility] Outpatient Encounter [id number] Evangelista GOMEZ 10[place]24 [place] [facility] [place] [facility] Outpatient Encounter [id number] 10[place]27 [place] [facility] [place] [facility] Outpatient Encounter [id number] MANJULA SALAZAR 10/30 [place] [facility] [place] [facility] Outpatient Encounter [id number] 11/10 [place] [facility] [place] [facility] MTMS BY PHARM ADDL 15 MIN [id number] Diagnos is: ICD-10- CM Z79.01 watermaster (curren t) use of anticoa gulants
POEPPINGH EAT L 11/12 [place] [facility] [place] [facility] Outpatient Encounter [id number] GURJIT POPE 02/06 [place] [facility] [place] [facility] Outpatient Encounter [id number] GURJIT POPE 02/06 [place] [facility] [place] [facility] Outpatient Encounter [id number] 03/16 [place] [facility] [place] [facility] CO/[place] DIFFUSE CAPACITY [id number] Diagnos is: ICD-10- CM J84.9 Interst itial pulmona ry disease , unspeci fied
Heidy LAWSON 03/16 [facility] [place] [facility] [place] 60 MIN [id number] Diagnos is: ICD-10- CM J84.9 Interst itial pulmona ry disease , unspeci fied
Heidy LAWSON 03/16 [facility] [place] [facility] Outpatient Encounter [id number] Diagnos is: ICD-10- CM J84.9 Interst itial pulmona ry disease , unspeci fied
BETTY GARCIA M 03/17 [facility] Outpatient Encounter [id number] 04/06 [place] [facility] Outpatient Encounter [id number] Diagnos is: ICD-10- CM J84.9 Interst itial pulmona ry disease , unspeci fied
Heidy LAWSON 04/14 [facility] QNHP OL DIG ASSMT&MGMT 5-10 [id number] Diagnos is: ICD-10- CM J84.9 Interst itial pulmona ry disease , unspeci fied
JERSON ALDANA 04/14 [facility] Outpatient Encounter [id number] Heidy LAWSON 04/16 [facility] Social History Combined list of available smoking, tobacco, and other social history from Department of Defense and Veterans Affairs facilities. Social History Type Response Date Comment Sourc e Tobacco smoking status INIS NV-TOBACCO FORMER USER 10/10/2023 [facility] History of tobacco use NV-TOBACCO QUIT 1 5 YRS OR MORE 10/10/2023 [facility] Plan of Care List of future care activities from Department of Veterans Affairs facilities. Additional future care activities may be listed in the Assessment and Plan section. Date/Time Care Activity Care Activity Detail Facili ty 07/30/2024 AMBULATORY - MEDICINE AMBULATORY - MEDICI NE [facility] 07/30/2024 AMBULATORY - MEDICINE AMBULATORY - MEDICI NE [facility] 03/16/2024 Consult Order COMMUNITY [facility]-E CHOCARDIOGRAPHY Cons Date Pitter's Choice [facility]
--- OUTSIDE RECORDS SUMMARY | 2024-04-20 12:54 | XMS_ITS | Encounter Summary ---
Author Name [facility] ([place]) Organization [facility] ([place]) Address [address] [place] [id number] Care Team Providers Care Larry Operator Name Role Phone LISSETH GOMEZ Primary Care Provider [facility]a [facility] Insurance Providers: All historical and current Section Date Range: From patient's date of to the date document was created. This section includes the names of all active insurance providers for the patient. Insurance Provider Type of Coverage Plan Name Start of Policy Coverage End of Policy Coverage Group Number Member ID Insurance Provider's Telephone Number Policy Moscoso's Name Patient's Relationship to Policy Moscoso [employer] [facility] (WNR) MEDICARE ADVANTAGE MCR (WNR) Jul 22, 2022 [id number] [phone] OMAR CHOI PATIENT Selected Encounter This section includes the information on record at [place] for the Encounter. Date/Time Encounter Type Encounter Description Reason Pro vider Source Mar 16, 2024 09:54 AM Outpatient Encounter PULMONARY FUNCTION E Encounter Template Text not used by [place] Plan of Treatment: Future Appointments (+ 6 months) and Future Tests (+/- 45 days) The Plan of Treatment section includes future care activities for the patient from all [place] treatmentfacilities. This section includes future appointments and future orders which are active, pending or scheduled. Future Appointments This section includes appointments that were scheduled to occur 6 months from the date of the Encounter, up to a maximum of 20 appointments. The data comes from all [place] treatment facilities. Appointment Date/Time Appointment Type Appointme nt Facility Name Mar 30, 2024 11:15 AM AMBULATORY - NONE [facility] Jul 30, 2024 11:20 AM AMBULATORY - MEDICINE [facility] Jul 30, 2024 02:00 PM AMBULATORY - MEDICINE [facility] Active, Pending, and Scheduled Orders This section includes a listing of several types of active, pending, and scheduled orders, including clinic medications orders, diagnostic test orders, procedure orders and consult orders; where the start date of the order is 45 days before the date of the Encounter or 45 days after the date of theEncounter. The data comes from all [facility]. Test Date/Time Test Type Test Details Facility Name Mar 16, 2024 11:47 AM Consult Order COMMUNITY CARE-ECHOCARDIOGRAPHY Cons Homicide Squad Sergeant's Choice [facility] Vital Signs: All taken on the encounter date This section contains inpatient and outpatient Vital Signs collected on the date of the Encounter. Date/Time Temperature Pulse Blood Pressure Respiratory Rate SP02 Pain Height Weight Body Mass Index Source Mar 16, 2024 10:58 AM 97.4 68 118/77 18 88 0 65 159 27 [facility] Social History: Smoking Status (Most current) and Tobacco Use (All prior to encounter date) This section includes the most current, and the historical, smoking and tobacco- related health factors from the [place] facility where the Encounter took place. Current Smoking Status This section includes the most current smoking, or tobacco-related health factor, from the [place] facility where the Encounter took place. Date/Time Current Smoking Status Comment Emil ity Oct 10, 2023 09:00 AM [place]-TOBACCO FORMER USER [facility] Tobacco Use History This section includes a history of the smoking, or tobacco-related health factors, that were collected on or before the date of the Encounter. The data comes from the [place] facility where the Encounter took place. Date/Time Smoking Status/Tobacco Use Comment F acility Oct 10, 2023 09:00 AM [place]-TOBACCO QUIT 15 YRS OR MORE [facility] Radiology Reports: +/- 30 days of the encounter Radiology Reports For cases when an order for radiology services may have been completed prior to the date of the Encounter, the report list includes the Radiology Reports that were completed up to 30 days before dateof the Encounter. For cases when an order for radiology services may have been completed after the date of the Encounter, the report list also includes the Radiology Reports that were completed up to30 days after date of the Encounter. The data comes from all [facility]. Date/Time Radiology Report Provider Source Mar 30, 2024 08:[address] (C) CHEST (P): TORY CHOI [id number] -[id number] M Exm Date: MAR 30, 2024@08:46 Req Phys: BARBARA CHRISTIAN Pat Loc: [facility] (Req'g Loc) Img Loc: CT IMAGING Service: [place] [address] (Case 231 COMPLETE) CT (C) CHEST W/O CONTRAST (CT Detailed) CPT:71512 Reason for Study: evaluate for ILD Clinical History: Per Joint Commission Standards, by signing this diagnostic imaging request the ordering provider confirms they have considered patients age and recent imaging history. Defer to radiologist for final CT protocol. Contact number for responsible provider who can be reached for any questions or notifications of critical findings: Dr.Kunisaki Prado LAST 3: No data available for: CREATININE .CREAT EGFR(CKD-EPI) Allergies: ([place] only) AMIODARONE (Oct 10, 2023) GOLDENROD POLLEN (Oct 10, 2023) Report Status: Verified Date Reported: MAR 30, 2024 Date Verified: MAR 30, 2024 Wood Casket Maker E-Sig:/ES/ARELY DRAKE MD Report: CT CHEST WITHOUT CONTRAST CLINICAL HISTORY: Evaluate for interstitial lung disease. COMPARISON FILMS: None TECHNIQUE: Multiple axial sections are obtained from the thoracic inlet through the adrenal glands. No IV contrast was administered. Coronal reformats were obtained. Dose: Total DLP 525 mGy*cm. FINDINGS: LUNG PARENCHYMA AND PLEURA: Subpleural reticular markings in the lung parenchyma bilaterally with bronchiectatic changes, peribronchial vascular and peripheral groundglass opacities in the upper lobes bilaterally right middle lobe, lingula and lower lobes bilaterally with bronchiectatic changes in the lower lobes slightly more pronounced on the right lower lobe with associated honeycombing. Ascq-hs-[id number] emphysematous changes. MEDIASTINUM: Thyroid unremarkable. Atherosclerotic thoracic aorta. Ascending thoracic aorta measures 3.3 cm. Main pulmonary artery measures 3.2 cm suggesting pulmonary hypertension. Severe coronary artery calcifications. Mild aortic valve calcifications. Heart size mildly enlarged. No pericardial effusion. Several enlarged superior mediastinal, paratracheal, AP window, prevascular, subcarinal and bilateral hilar lymph nodes for example, a right paratracheal lymph node image 112 series 2 measuring 18.5 mm in short axis dimension, prevascular lymph node image 120 series 2 measuring 1.2 cm in short axis dimension, subcarinal lymph node image 165 series 2 measuring 1.4 cm in short axis dimension. Small to moderate hiatal hernia. Mild esophageal wall thickening suggesting reflux/esophagitis. Central tracheobronchial tree clear. Bronchiectatic changes in the lung parenchyma bilaterally. SOFT TISSUES AND OSSEOUS STRUCTURES: Hyperattenuating lesion partially exophytic from the posterior superior pole of the right kidney image 264 series 2 measuring 8 mm favoring a hemorrhagic/proteinaceous cyst. Thoracic degenerative changes. No acute bony abnormalities. No axillary lymphadenopathy. Bilateral gynecomastia. Suspect layering gallstones in the gallbladder partially imaged. Impression: 1. Subpleural reticular markings, bronchiectatic changes, honeycombing with patchy peribronchial vascular and peripheral groundglass opacities not only affecting the lower lobes bilaterally but also the upper lobes. CT pattern indeterminate for UIP 2. Mediastinal and hilar lymphadenopathy. Favor reactive lymphadenopathy given the findings in the lungs. 3. Enlarged main pulmonary artery suggesting pulmonary hypertension. 4. Severe coronary artery calcifications and mild cardiomegaly. 5. Small to moderate hiatal hernia. 6. Suspect hemorrhagic/proteinaceous cyst partially exophytic from the right kidney measuring 8 mm. 7. Suspect layering gallstones without cholecystitis. Primary Interpreting Staff: ARELY DRAKE MD, RADIOLOGIST (Wood Casket Maker) /ARELY [facility] Encounter Notes: All associated encounter notes This section contains the clinical notes associated to the Encounter. Date/Time Encounter Note(s) Provider Source Mar 16, 2024 11:29 AM PULMONARY PROCEDUR E NOTE: LOCAL TITLE: CP PULMONARY FUNCTION TEST STANDARD TITLE: PULMONARY PROCEDURE NOTE DATE OF NOTE: MAR 16, 2024@11:29:24 ENTRY DATE: MAR 16, 2024@11:29:24 AUTHOR: CLINICAL,DEVICE PRO EXP COSIGNER: URGENCY: STATUS: COMPLETED PROCEDURE SUMMARY CODE: Machine Resulted DATE/TIME PERFORMED: MAR 16, 2024@10:18:4 DOCUMENT IN VISTA IMAGING SEE FULL REPORT IN VISTA IMAGING SIGNATURE NOT REQUIRED SEE SIGNATURE IN VISTA IMAGING (VYAIRE (PFT)) AUTO-INSTRUMENT DIAGNOSIS Procedure: MIN_PFT PFT Measurement ti10:24AM Spirometry Ref LLN Pre ZScore% Ref FVC L 2.94 2.15 2.19 -1.55 74.6 FEV 1 L 2.22 1.52 1.87 -0.85 84.1 FEV1/FVC% 76 62 85 1.15 PEF L/s 6.76 4.76 7.33 0.48 108.6 Z-Score Pre-Bronchodilator FVC L -1.55 FEV 1 L -0.85 FEV1/FVC % 1 Diffusing Capacity Ref LLN Pre %Ref Z-Score Z-Score DLCO_SBml/(min*m20.7114.9 1 3.61 17.4 -6.74 -6.74 DLCOcSBml/(min*m20.7114.9 1 3.75 18.1 -6.63 -6.63 Hb g(Hb)/dL 13.30 Parameter FVC FEV1 FEV1/FVC TLC RV DLCOcSB 03/16/2024 2.19 1.87 85 3.75 Good effort, all tests meet ATS criteria for acceptability and reproducibility. *Hgb. of 13.3 (drawn 03/16/2024 via hemocue). No previous PFT's. Interpretation: Spirometry is Normal. DLCO is Reduced: Severe Impairment. Z-Score < -4.1. Signed By: Raghavendra Lyle MD Administrative Closure: 03/16/2024 by: CLINICAL,DEVICE PROXY SERVICE CLINICAL,DEVICE PROXY SERVICE [facility]
--- OUTSIDE RECORDS SUMMARY | 2024-04-20 12:54 | XMS_ITS | Encounter Summary ---
Author Name [facility] [place] Organization [facility] [place] [place] Address [address] [place] [id number] Care Team Providers Care Office Services Specialist Name Role Phone LISSETH GOMEZ Primary Care Provider Unavaila ble Insurance Providers: All historical and current Section [...] [facility] (WNR) MEDICARE ADVANTAGE [facility] (WNR) Jul 22, 2022 [id number] OMAR CHOI PATIENT Selected Encounter This section includes the information on record at [place] for the Encounter. Date/Time Encounter Type Encounter Description Reason Provider Source Apr 14, 2024 11:39 AM Outpatient Encounter TELEPHONE/STEVO Mcleod ICD-10-CM J84.9 Interstitial pulmonary disease, unspecified UCHE LAWSON Shani Encounter Template Text not used by [place] Assessments - Encounter Diagnoses This section includes the primary and secondary diagnoses documented for the Encounter. Date/Time Primary/Secondary Diagnosis Diagnosis Name Provider Source Apr 14, 2024 11:39 AM PRIMARY Interstitial pulmonary disease, unspecified UCHE LAWSON [facility] Apr 14, 2024 11:39 AM SECONDARY FDC (current) use of anticoagulants UCHE LAWSON [facility] Plan of Treatment: Future Appointments (+ 6 months) and Future Tests (+/- 45 days) The Plan of Treatment section includes future care activities for the patient from all [place] [facility]. This section includes future appointments and future orders which are active, pending or scheduled. Future Appointments This section includes appointments that were scheduled to occur 6 months from the date of the Encounter, up to a maximum of 20 appointments. The data comes from all [facility]. Appointment Date/Time Appointment Type Appointme nt Facility Name Jul 30, 2024 11:20 AM AMBULATORY - MEDICINE [facility] Jul 30, 2024 02:00 PM AMBULATORY - MEDICINE [facility] Active, Pending, and Scheduled Orders This section includes a listing of several types of active, pending, and scheduled orders, including clinic medications orders, diagnostic test orders, procedure orders and consult orders; where the start date of the order is 45 days before the date of the Encounter or 45 days after the date of theEncounter. The data comes from all [facility]. Test Date/Time Test Type Test Details Facility Name Mar 16, 2024 11:47 AM Consult Order COMMUNITY CARE-ECHOCARDIOGRAPHY Cons Package Line Relief Operator's Choice [facility] Social History: Smoking Status (Most current) and Tobacco Use (All prior to encounter date) This section includes the most current, and the historical, smoking and tobacco- related health factors from the [place] facility where the Encounter took place. Current Smoking Status This section includes the most current smoking, or tobacco-related health factor, from the [place] facility where the Encounter took place. Date/Time Current Smoking Status Comment Facil ity Oct 10, 2023 09:00 AM [place]-TOBACCO FORMER USER [facility] Tobacco Use History This section includes a history of the smoking, or tobacco-related health factors, that were collected on or before the date of the Encounter. The data comes from the [place] facility where the Encounter took place. Date/Time Smoking Status/Tobacco Use Comment F acility Oct 10, 2023 09:00 AM [place]-TOBACCO QUIT 15 YRS OR MORE [facility] Radiology Reports: +/- 30 days [...] the Encounter. The data comes from all [place] treatment facilities. Date/Time Radiology Report Provider Source Mar 30, 2024 08:[address] (C) CHEST (P): TORY CHOI [id number] -[id number] M Exm Date: MAR 30, 2024@08:46 Req Phys: BARBARA CHRISTIAN Pat Loc: [facility] PULM EVAL (Req'g Loc) Img Loc: CT IMAGING Service: [place] [address] (Case [id number] COMPLETE) CT (C) CHEST W/O CONTRAST (CT Detailed) CPT:21508 Reason for Study: evaluate for ILD Clinical [...] data available for: CREATININE .CREAT EGFR(CKD-EPI) Allergies: ([place] only) AMIODARONE (Oct 10, 2023) GOLDENROD POLLEN (Oct 10, 2023) Report Status: Verified Date Reported: MAR 30, 2024 Date Verified: MAR 30, 2024 Vehicle Leasing And Rental Manager E-Sig:/ES/ARELY DRAKE MD Report: CT CHEST WITHOUT [...] the right lower lobe with associated honeycombing. Czgy-di-zfoadloq emphysematous changes. MEDIASTINUM: Thyroid unremarkable. Atherosclerotic thoracic [...] Primary Interpreting Staff: ARELY DRAKE MD, RADIOLOGIST (Vehicle Leasing And Rental Manager) /[facility]ELY [facility] Encounter Notes: All associated encounter notes This section contains the clinical notes associated to the Encounter. Date/Time Encounter Note(s) Provider Source Apr 14, 2024 12:04 PM ADDENDUM: LOCAL TITLE: Addendum STANDARD TITLE: ADDENDUM DATE OF NOTE: APR 14, 2024@12:04:45 ENTRY DATE: APR 14, 2024@12:04:46 AUTHOR: UCHE LAWSON EXP COSIGNER: URGENCY: STATUS: COMPLETED --> Alerting pulmonary RN to new pirfenidone start; will need phone discussion re: process, side effects monitoring, drug titration and LFT orders. --> Also alerting [facility] to RTC orders with me in Jul 2024. /farzad/ UCHE LAWSON MD, MS STAFF, PULMONARY MEDICINE Signed: 04/14/2024 12:05 Receipt Acknowledged By: 04/14/2024 15:28 /es/ GURJIT CHAVES RN PULMONARY IRONING WORKER 04/14/2024 12:49 /es/ PIETRO Lemons Leasing Agent --- Original Document --- 04/14/24 PULMONARY CLINIC NOTE: See recent Pulmonary Consult from 16 Mar 2024. Chest CTs now available for comparisons. 03/30/2024 02/08/2022 07/24/2021 Compared to prior chest CTs, there is clearly significant progression of the interstitial pulmonary disease. For example, the bilateral lower lobe fibrosis has now developed more honeycombing. L and R upper lobes with more extensive fibrotic findings also. CT 03/30/2024 was read prior to importing of outside images, but agree with report's pulmonary findings: Impression: 1. Subpleural reticular markings, bronchiectatic changes, honeycombing with patchy peribronchial vascular and peripheral groundglass opacities not only affecting the lower lobes bilaterally but also the upper lobes. CT pattern indeterminate for UIP 2. Mediastinal and hilar lymphadenopathy. Favor reactive lymphadenopathy given the findings in the lungs. 3. Enlarged main pulmonary artery suggesting pulmonary hypertension. And note the following incidental findings: 4. Severe coronary artery calcifications and mild cardiomegaly. 5. Small to moderate hiatal hernia. 6. Suspect hemorrhagic/proteinaceous cyst partially exophytic from the right kidney measuring 8 mm. 7. Suspect layering gallstones without cholecystitis. 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 I reviewed his outside EP cardiology for more details on the amiodarone, nicely summarized on 04/02/[address] [facility] [address] Enriquez. - He was started on amiodarone 200mg QDay 02/2020 due to suboptimal AFlutter rhythm control on sotalol and also LVEF that was 45%. Amiodarone resulted in very low AFlutter recurrence. 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 LVEF also recovered to 55%. - Developed cough and dyspnea in 01/2021. Seen in pulmonary clinic at [facility] 06/2021. 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 Amiodarone was reduced to 100mg/day and then discontinued on 10/02/2021 (and he was transitioned back to sotalol). CT chests were done right around the time of amiodarone discontinuation--2 months prior and 4 months after. And given the long half-life of amiodarone, is difficult to know how much longer after discontinuation he may have been exposed to ongoing fibrosis-inducing blood levels. He was seen by [facility] January 2002 (at time of last chest CT) and was to follow up in January 2023, but I do not believe he ever followed up with them and then came to us last month. Although his spirometry volumes are in the 75%-85% of normal range, with this significant CT progression and DLCO that is only 18% of predicted normal, chronic oxygen needs, and poor functional status, I would be inclined to offer him antifibrotics to slow any further potential progression. The difficult part here is that we will not know if things have already slowed, as he had no interim imaging/PFTs in the 6-12 months after amiodarone discontinuation. But he has little reserve in terms of gas exchange. Although some of his gas exchange may be due to progression of pulmonary HTN (cor pulmonale), even small progression of pulmonary fibrosis could be quite impactful to quality of life. Although we typically use BID nintedanib as first-line antifibrotic, it has some potential small bleeding risk due to VEGF activity. Maria Esther is on apixaban for stroke prevention, so would use pirfenidone as antifibrotic instead. Downside is that this is a TID drug (3 capsules TID). But is the only other anti-firbrotic that slows progression so far. I called the today to discuss the above. Positively identified and agreed to this visit. Confirms that his functional capacity right now is ~100 feet on flat ground. [place] than ~6 months ago. No EtOH. Not smoking. We discussed that it is difficult to know if recent progression is from ILD progression or development/progression of pulmonary HTN, but my concern is that if ILD progresses any fruther, this could severely impact him. We discussed risks/benefits/alternatives to pirfenidone and he would like to proceed with a trial of this. 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 Pulmonary fibrosis initially attributed to toxicity from amiodarone that was on for AFlutter between 09/2019 - 09/2021. CTs stable 07/2021 (on Amiodarone) and 01/2022 (off Amiodarone for ~4 months), then lost to follow-up. Now with progression of ILD changes on chest CT 03/2024. Also suspected cor pulmonale. --> Alerting pulmonary RN to new start of pirfenidone; orders placed for medications and will await further instructions from RN re: lab draws and contact information should he develop side effects. Will need baseline and follow-up LFT orders also; will ask RN to coordinate with [facility] to get these done. --> Next RTC with me Jul 2024 with repeat PFTs; will hold off of repeat imaging until likely later in 2024. --> Echo pending at [place]; results will hopefully be back by next follow up, but won't change acute management as goal #1 will be to slow ILD progression with pirfenidone; can then potentially consider inhaled treprostinil for ILD-PH, but would need R heart cath prior and careful risk:benefit shared decision making. Total call time today: 12 min, 41 sec. /farzad/ UCHE LAWSON MD, MS STAFF, PULMONARY MEDICINE Signed: 04/14/2024 12:03 UCHE LAWSON [facility] Apr 14, 2024 11:58 AM PULMONARY ATTENDIN G OUTPATIENT NOTE: LOCAL TITLE: PULMONARY CLINIC NOTE STANDARD TITLE: PULMONARY ATTENDING OUTPATIENT NOTE DATE OF NOTE: APR 14, 2024@11:58 ENTRY DATE: APR 14, 2024@11:58:45 AUTHOR: UCHE LAWSON EXP COSIGNER: URGENCY: STATUS: COMPLETED PULMONARY CLINIC NOTE Has ADDENDA See recent Pulmonary Consult from 16 Mar 2024. Chest CTs now available for comparisons. 03/30/2024 02/08/2022 07/24/2021 Compared to prior chest CTs, there is clearly significant progression of the interstitial pulmonary disease. For example, the bilateral lower lobe fibrosis has now developed more honeycombing. L and R upper lobes with more extensive fibrotic findings also. CT 03/30/2024 was read prior to importing of outside images, but agree with report's pulmonary findings: Impression: 1. Subpleural reticular markings, bronchiectatic changes, honeycombing with patchy peribronchial vascular and peripheral groundglass opacities not only affecting the lower lobes bilaterally but also the upper lobes. CT pattern indeterminate for UIP 2. Mediastinal and hilar lymphadenopathy. Favor reactive lymphadenopathy given the findings in the lungs. 3. Enlarged main pulmonary artery suggesting pulmonary hypertension. And note the following incidental findings: 4. Severe coronary artery calcifications and mild cardiomegaly. 5. Small to moderate hiatal hernia. 6. Suspect hemorrhagic/proteinaceous cyst partially exophytic from the right kidney measuring 8 mm. 7. Suspect layering gallstones without cholecystitis. 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 I reviewed his outside EP cardiology for more details on the amiodarone, nicely summarized on 04/02/[address] [facility] [address] Enriquez. - He was started on amiodarone 200mg QDay 02/2020 due to suboptimal AFlutter rhythm control on sotalol and also LVEF that was 45%. Amiodarone resulted in very low AFlutter recurrence. 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 LVEF also recovered to 55%. - Developed cough and dyspnea in 01/2021. Seen in pulmonary clinic at [facility] 06/2021. 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 Amiodarone was reduced to 100mg/day and then discontinued on 10/02/2021 (and he was transitioned back to sotalol). CT chests were done right around the time of amiodarone discontinuation--2 months prior and 4 months after. And given the long half-life of amiodarone, is difficult to know how much longer after discontinuation he may have been exposed to ongoing fibrosis-inducing blood levels. He was seen by [facility] January 2002 (at time of last chest CT) and was to follow up in January 2023, but I do not believe he ever followed up with them and then came to us last month. Although his spirometry volumes are in the 75%-85% of normal range, with this significant CT progression and DLCO that is only 18% of predicted normal, chronic oxygen needs, and poor functional status, I would be inclined to offer him antifibrotics to slow any further potential progression. The difficult part here is that we will not know if things have already slowed, as he had no interim imaging/PFTs in the 6-12 months after amiodarone discontinuation. But he has little reserve in terms of gas exchange. Although some of his gas exchange may be due to progression of pulmonary HTN (cor pulmonale), even small progression of pulmonary fibrosis could be quite impactful to quality of life. Although we typically use BID nintedanib as first-line antifibrotic, it has some potential small bleeding risk due to VEGF activity. Maria Esther is on apixaban for stroke prevention, so would use pirfenidone as antifibrotic instead. Downside is that this is a TID drug (3 capsules TID). But is the only other anti-firbrotic that slows progression so far. I called the today to discuss the above. Positively identified and agreed to this visit. Confirms that his functional capacity right now is ~100 feet on flat ground. [place] than ~6 months ago. No EtOH. Not smoking. We discussed that it is difficult to know if recent progression is from ILD progression or development/progression of pulmonary HTN, but my concern is that if ILD progresses any fruther, this could severely impact him. We discussed risks/benefits/alternatives to pirfenidone and he would like to proceed with a trial of this. 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 Pulmonary fibrosis initially attributed to toxicity from amiodarone that maria esther was on for AFlutter between 09/2019 - 09/2021. CTs stable 07/2021 (on Amiodarone) and 01/2022 (off Amiodarone for ~4 months), then lost to follow-up. Now with progression of ILD changes on chest CT 03/2024. Also suspected cor pulmonale. --> Alerting pulmonary RN to new start of pirfenidone; orders placed for medications and will await further instructions from RN re: lab draws and contact information should he develop side effects. Will need baseline and follow-up LFT orders also; will ask RN to coordinate with [facility] to get these done. --> Next RTC with me Jul 2024 with repeat PFTs; will hold off of repeat imaging until likely later in 2024. --> Echo pending at [place]; results will hopefully be back by next follow up, but won't change acute management as goal #1 will be to slow ILD progression with pirfenidone; can then potentially consider inhaled treprostinil for ILD-PH, but would need R heart cath prior and careful risk:benefit shared decision making. Total call time today: 12 min, 41 sec. /farzad/ UCHE LAWSON MD, MS STAFF, PULMONARY MEDICINE Signed: 04/14/2024 12:03 04/14/2024 ADDENDUM STATUS: COMPLETED --> Alerting pulmonary RN to new pirfenidone start; will need phone discussion re: process, side effects monitoring, drug titration and LFT orders. --> Also alerting [facility] to RTC orders with me in Jul 2024. /kerry LAWSON MD, MS STAFF, PULMONARY MEDICINE Signed: 04/14/2024 12:05 Receipt Acknowledged By: * AWAITING SIGNATURE * GURJIT CHAVES * AWAITING SIGNATURE * PIETRO LYLES KEN M [facility]
--- OUTSIDE RECORDS SUMMARY | 2024-04-20 12:54 | XMS_ITS | Encounter Summary ---
Author Name [facility] [place] [facility] [place] Organization [facility] [place] Address [address] [place] [address] Care Team Providers Care Motorized Squad Sergeant Name Role Phone LISSETH GOMEZ Primary Care [...] Name Patient's Relationship to Policy [place] [employer] M[facility] (WNR) MEDICARE ADVANTAGE MCR (WNR) Jul 22, 2022 [id number] OMAR CHOI PATIENT Selected Encounter This section includes the information on record at [place] for the Encounter. Date/Time Encounter Type Encounter Description Reason Pro vider Source Apr 06, 2024 10:19 AM Outpatient Encounter COMMUNITY CARE CONSULT E Encounter Template Text not used by [place] Plan of Treatment: Future Appointments (+ 6 months) and Future Tests (+/- 45 days) The Plan of Treatment section includes future care activities for the patient from all [place] treatmentfacilities. This section includes future appointments and future orders which are active, pending or scheduled. Future Appointments This section includes appointments that were scheduled to occur 6 months from the date of the Encounter, up to a maximum of 20 appointments. The data comes from all [place] treatment facilities. Appointment Date/Time Appointment Type Appointme nt Facility Name Jul 30, 2024 11:20 AM AMBULATORY - MEDICINE [facility] Jul 30, 2024 02:00 PM [facility] Active, Pending, and Scheduled Orders This section includes a listing of several types of active, pending, and scheduled orders, including clinic medications orders, diagnostic test orders, procedure orders and consult orders; where the start date of the order is 45 days before the date of the Encounter or 45 days after the date of theEncounter. The data comes from all [facility]. Test Date/Time Test Type Test Details Facility Name Mar 16, 2024 11:47 AM Consult Order COMMUNITY CARE-ECHOCARDIOGRAPHY Cons Cow Rider's Choice [facility] Social History: Smoking Status (Most current) and Tobacco Use (All prior to encounter date) This section includes the most current, and the historical, smoking and tobacco- related health factors from the [place] facility where the Encounter took place. Current Smoking Status This section includes the most current smoking, or tobacco-related health factor, from the [place] facility where the Encounter took place. Date/Time Current Smoking Status Comment Facil ity Oct 10, 2023 09:00 AM [place]-TOBACCO FORMER USER [facility] Tobacco Use History This section includes a history of the smoking, or tobacco-related health factors, that were collected on or before the date of the Encounter. The data comes from the [place] facility where the Encounter took place. Date/Time Smoking Status/Tobacco Use Comment F acility Oct 10, 2023 09:00 AM [place]-TOBACCO QUIT 15 YRS OR MORE [facility] Radiology Reports: +/- 30 days of the [...] the Encounter. The data comes from all [place] treatment [facility]. Date/Time Radiology Report Provider Source Mar 30, 2024 08:[address] (C) CHEST (P): STEPHTORY PO [id number] -[id number] M Exm Date: MAR 30, 2024@08:46 Req Phys: BARBARA CHRISTIAN Pat Loc: [facility] PULM EVAL (Req'g Loc) Img Loc: CT IMAGING Service: [place] [address] (Case 231 COMPLETE) CT (C) CHEST W/O CONTRAST (CT Detailed) CPT:10304 Reason for Study: evaluate for ILD Clinical [...] data available for: CREATININE .CREAT EGFR(CKD-EPI) Allergies: ([place] only) AMIODARONE (Oct 10, 2023) GOLDENROD POLLEN (Oct 10, 2023) Report Status: Verified Date Reported: MAR 30, 2024 Date Verified: MAR 30, 2024 Shank Turner E-Sig:/ES/ARELY DRAKE MD Report: CT CHEST WITHOUT [...] the right lower lobe with associated honeycombing. Lkfk-ai-mbyqhrpn emphysematous changes. MEDIASTINUM: Thyroid unremarkable. Atherosclerotic thoracic [...] Primary Interpreting Staff: ARELY DRAKE MD, RADIOLOGIST (Shank Turner) /ARELY [facility] Encounter Notes: All associated encounter notes This section contains the clinical notes associated to the Encounter. Date/Time Encounter Note(s) Provider Source Apr 06, 2024 10:19 AM NONVA NOTE: LOCAL TITLE: COMMUNITY CARE PRE-AUTH LETTER (AUTOPRINT) STANDARD TITLE: NONVA NOTE DATE OF NOTE: APR 06, 2024@10:19 ENTRY DATE: APR 06, 2024@10:21:49 AUTHOR: CARINA LUIS COSIGNER: URGENCY: STATUS: COMPLETED Mar TORY CHOI [address], [place] [address] Dear TORY CHOI, Your [place] provider has referred you to a provider within the community for care. Your medical care for Echocardiogram has been authorized with the community care provider listed below. DO NOT REPORT TO THE [place] [facility] Provider info: Care has been approved for the following vendor: Office name, address, and phone number: [facility] [address] [place] [address] PH: [phone] Please contact the identified provider to schedule your community appointment. If you need assistance with this appointment, please call your facility community care office [facility] Office of Community Care at [phone] during the hours of 8:30AM - 3:00PM. Please follow up with your local [facility] community care office once this is scheduled. This step is needed to ensure your referral duration is maximized and the [place] has accurate referral information for billing purposes. Authorization Number: [id number] Referral Issue Date: Feb Expiration Date: Apr (subject to change based on first appointment) If you are unable to schedule this appointment or the appointment is no longer needed, please contact the community provider above for notification/rescheduling and then call the [facility] Office of Community Care at [phone] during the hours of 8:30AM - 3:00PM. If you need additional care/services not mentioned above or your authorization has and additional care is needed, please contact your primary care provider for a new referral. To review all care/service(s) approved under your referral, please go to the following link: [employer] Portal([employer] ) Co-Payments: If you are required to pay a [place] co-payment, you will be billed by the [place] for each authorized visit that you attend. However, you are NOT REQUIRED to make co-payments to a community provider. Thank you for the opportunity to serve you. Sincerely, [place] Community Care ([place]) /farzad/ FERNANDO RODAS Signed: 04/06/2024 10:22 CARINA LUIS [facility]
--- OUTSIDE RECORDS SUMMARY | 2024-04-20 12:54 | XMS_ITS | Encounter Summary ---
Author Name [facility] [place] [place] Organization [facility] [place] Address [address] [place] [address] Care Team Providers Care Entry Level Staff Accountant Name Role Phone LISSETH GOMEZ Primary Care Provider Unavaila [facility] Insurance Providers: All historical and current Section [...] Name Patient's Relationship to Policy [place] [employer]MANA [facility] (WNR) MEDICARE ADVANTAGE [facility] (WNR) Jul 22, 2022 [id number] [phone] 2 OMAR CHOI PATIENT Selected Encounter This section includes the information on record at [place] for the Encounter. Date/Time Encounter Type Encounter Description Reason Provider Source Mar 17, 2024 12:50 PM Outpatient Encounter TELEPHONE/DEISI KELLER ICD-10-CM J84.9 Interstitial pulmonary disease, unspecified NIKKI GARCIA RET E Encounter Template Text not used by [place] Assessments - Encounter Diagnoses This section includes the primary and secondary diagnoses documented for the Encounter. Date/Time Primary/Secondary Diagnosis Diagnosis Name Provider Source Mar 17, 2024 12:50 PM PRIMARY Interstitial pulmonary disease, unspecified NIKKI GARCIA RET [facility] Mar 17, 2024 12:50 PM SECONDARY Other secondary pulmonary hypertension NIKKI GARCIA RET [facility] Plan of Treatment: Future Appointments (+ 6 months) and Future Tests (+/- 45 days) The Plan of Treatment section includes future care activities for the patient from all [facility]. This section includes future appointments and future orders which are active, pending or scheduled. Future Appointments This section includes appointments that were scheduled to occur 6 months from the date of the Encounter, up to a maximum of 20 appointments. The data comes from all [facility]. Appointment Date/Time Appointment Type Appointme nt Facility Name Mar 30, 2024 11:15 AM AMBULATORY - NONE [facility] Jul 30, 2024 11:20 AM [facility] Jul 30, 2024 02:00 PM AMBULATORY - MEDICINE [facility] Active, Pending, and Scheduled Orders This section includes a listing of several types of active, pending, and scheduled orders, including clinic medications orders, diagnostic test orders, procedure orders and consult orders; where the start date of the order is 45 days before the date of the Encounter or 45 days after the date of theEncounter. The data comes from all [facility]. Test Date/Time Test Type Test Details Facility Name Mar 16, 2024 11:47 AM Consult Order COMMUNITY CARE-ECHOCARDIOGRAPHY Cons Investment Director's Choice [facility] Social History: Smoking Status (Most current) and Tobacco Use (All prior to encounter date) This section includes the most current, and the historical, smoking and tobacco- related health factors from the [place] facility where the Encounter took place. Current Smoking Status This section includes the most current smoking, or tobacco-related health factor, from the [place] facility where the Encounter took place. Date/Time Current Smoking Status Comment Facil ity Oct 10, 2023 09:00 AM MS-TOBACCO FORMER USER [facility] Tobacco Use History This section includes a history of the smoking, or tobacco-related health factors, that were collected on or before the date of the Encounter. The data comes from the [place] facility where the Encounter took place. Date/Time Smoking Status/Tobacco Use Comment F acility Oct 10, 2023 09:00 AM [place]-TOBACCO QUIT [address] [facility] Radiology Reports: +/- 30 days of the [...] the Encounter. The data comes from all [place] treatment facilities. Date/Time Radiology Report Provider Source Mar 30, 2024 08:[address] (C) CHEST (P): TORY CHOI [id number] -[id number] M Exm Date: MAR 30, 2024@08:46 Req Phys: BARBARA CHRISTIAN Pat Loc: [facility] PULM EVAL (Req'g Loc) Img Loc: CT IMAGING Service: [place] [address] (Case [id number] COMPLETE) CT (C) CHEST W/O CONTRAST (CT Detailed) CPT:79110 Reason for Study: evaluate for ILD Clinical [...] data available for: CREATININE .CREAT EGFR(CKD-EPI) Allergies: ([place] only) AMIODARONE (Oct 10, 2023) GOLDENROD POLLEN (Oct 10, 2023) Report Status: Verified Date Reported: MAR 30, 2024 Date Verified: MAR 30, 2024 Destination Sign Repairer E-Sig:/ES/ARELY DRAKE MD Report: CT CHEST WITHOUT [...] the right lower lobe with associated honeycombing. [id number]-[id number] emphysematous changes. MEDIASTINUM: Thyroid unremarkable. Atherosclerotic thoracic [...] Primary Interpreting Staff: ARELY DRAKE MD, RADIOLOGIST (Destination Sign Repairer) /ARELY [facility] Encounter Notes: All associated encounter notes This section contains the clinical notes associated to the Encounter. Date/Time Encounter Note(s) Provider Source Mar 17, 2024 12:50 PM RESPIRATORY THERAP Y NOTE: LOCAL TITLE: RESPIRATORY THERAPY F/U NOTE STANDARD TITLE: RESPIRATORY THERAPY NOTE DATE OF NOTE: MAR 17, 2024@12:50 ENTRY DATE: MAR 17, 2024@12:51:08 AUTHOR: DEBBIE GARCIA EXP COSIGNER: URGENCY: STATUS: COMPLETED Associate Merchandise Planner talked with and his . They are interested in purchasing a portable oxygen concentrator. He is not on the [facility] Home 02 program. He is receiving his home oxygen through [employer]. [employer] has provided a rental portable oxygen concentrator but the battery only last 2 hours on 2L prescription. They understand that the [facility] does not provide nor pay for a POC. [facility] has done research into a POC specifically an [employer]. Per her research with [employer] they have one with a 6 hour battery and can purchase an additional battery for another 6 hours. They did not have any questions for me. /farzad/ DEBBIE GARCIA, RT RESPIRATORY THERAPIST Signed: 03/17/2024 13:02 Receipt Acknowledged By: 03/17/2024 13:09 /es/ UCHE LAWSON MD, [place] STAFF, PULMONARY MEDICINE 03/19/2024 08:32 /es/ BARBARA CHRISTIAN PULMONARY AND CRITICAL CARE FELLOW 03/17/2024 13:36 /es/ KIANNA BERRY MIXER MACHINE FEEDER DEBBIE GARCIA [facility]
--- OUTSIDE RECORDS SUMMARY | 2024-04-20 12:54 | XMS_ITS | Encounter Summary ---
Author Name Department of Vetera [facility] ([place] Organization [facility] [place] [place] Address [address] [place] [address] Care Team Providers Care Flat Surfacer Jewel Name Role Phone LISSETH MIRANDA Primary Care Provider Unavailbere galdamez Insurance Providers: All historical and current Section [...] Name Patient's Relationship to Policy [place] [employer] [facility] (WNR) MEDICARE ADVANTAGE [facility] (WNR) Jul 22, 2022 [id number] OMAR CHOI PATIENT Selected Encounter This section includes the information on record at [place] for the Encounter. Date/Time Encounter Type Encounter Description Reason Provider Source Feb 07, 2024 12:47 PM Outpatient Encounter PRIMARY CARE/MEDICINE CAROL ANN POPE Encounter Template Text not used by [place] Plan of Treatment: Future Appointments (+ 6 months) and Future Tests (+/- 45 days) The Plan of Treatment section includes future care activities for the patient from all [place] treatmentfacilities. This section includes future appointments and future orders which are active, pending or scheduled. Future Appointments This section includes appointments that were scheduled to occur 6 months from the date of the Encounter, up to a maximum of 20 appointments. The data comes from all [place] treatment facilities. Appointment Date/Time Appointment Type Appointme nt Facility Name Mar 16, 2024 10:20 AM AMBULATORY - MEDICINE [facility] Mar 16, 2024 11:00 AM AMBULATORY - MEDICINE [facility] Mar 30, 2024 11:15 AM AMBULATORY - NONE [facility] Jul 30, 2024 11:20 AM AMBULATORY - MEDICINE [facility] Jul 30, 2024 02:00 PM AMBULATORY - MEDICINE [facility] Active, Pending, and Scheduled Orders This section includes a listing of several types of active, pending, and scheduled orders, including clinic medications orders, diagnostic test orders, procedure orders and consult orders; where the start date of the order is 45 days before the date of the Encounter or 45 days after the date of theEncounter. The data comes from all [place] treatment facilities. Test Date/Time Test Type Test Details Facility Name Mar 16, 2024 11:47 AM Consult Order COMMUNITY CARE-ECHOCARDIOGRAPHY Cons Hospitalist Medical Director's Choice [facility] Social History: Smoking Status (Most current) and Tobacco Use (All prior to encounter date) This section includes the most current, and the historical, smoking and tobacco- related health factors from the [place] facility where the Encounter took place. Current Smoking Status This section includes the most current smoking, or tobacco-related health factor, from the [place] facility where the Encounter took place. Date/Time Current Smoking Status Comment Facil ity Oct 10, 2023 09:00 AM [place]-TOBACCO FORMER USER [facility] Tobacco Use History This section includes a history of the smoking, or tobacco-related health factors, that were collected on or before the date of the Encounter. The data comes from the [place] facility where the Encounter took place. Date/Time Smoking Status/Tobacco Use Comment F acility Oct 10, 2023 09:00 AM [place]-TOBACCO QUIT 15 YRS OR MORE [facility] Encounter Notes: All associated encounter notes This section contains the clinical notes associated to the Encounter. Date/Time Encounter Note(s) Provider Source Feb 07, 2024 01:06 PM ADDENDUM: LOCAL TITLE: Addendum STANDARD TITLE: ADDENDUM DATE OF NOTE: FEB 07, 2024@13:06:25 ENTRY DATE: FEB 07, 2024@13:06:26 AUTHOR: SALVADOR MCCLURE EXP COSIGNER: URGENCY: STATUS: COMPLETED Pulmonology consult ordered. This may take mutiple weeks to get scheduled and completed. If pt has shortess of breath or unable to keep O2 sats > 89% with current oxygen prior to consult, he should present to the ED. Pulm may also want him to complete other tests (such as CT chest, PFTs) prior to consult if he has not had these completed anywhere else (which I couldn't find in [facility].) /farzad/ Salvador Mcclure D.O. Staff Physician Signed: 02/07/2024 13:08 Receipt Acknowledged By: 02/07/2024 13:34 /es/ CAROL ANN POPE RN STAFF NURSE === --- Original Document --- 02/07/24 PRIMARY CARE SECURE MESSAGING: ------Original Message ------ Sent: 02/07/2024 09:29 AM ET From: YOSI CHOI To: [facility] Primary Care, Jordy Miranda ([place]) Subject: Appointment:Appointment Inquiry I need an appointment with a lung specialist as soon as it can be made. I am on oxygen 11/02 now in order to keep my stats at 90%. Without it they run from 76% to 81%. I have very little energy or appetite and am losing around 5 lbs. a week. I need help! Thank you, Yosi Choi PS Am I on automatic refills for the Eloquist? ------Original Message ------ Sent: 02/07/2024 01:47 PM ET From: CAROL ANN POPE To: YOSI CHOI Subject: Appointment:Appointment Inquiry Good afternoon, I will relay this to your provider. Also, no, we do not do auto refills here at [place]. I will request refill today. Carol Ann Pope RN Care Manager /farzad/ CAROL ANN POPE RN STAFF NURSE Signed: 02/07/2024 12:47 Receipt Acknowledged By: 02/07/2024 13:06 /farzad/ Salvador Mcclure D.O. Staff Physician for LISSETH MIRANDA 02/07/2024 ADDENDUM STATUS: COMPLETED Records available in [facility]. Recommend pulm consult. /farzad/ CAROL ANN POPE QUALITY HEAD NURSE Signed: 02/07/2024 12:51 SALVADOR MCCLURE [facility] Feb 07, 2024 12:47 PM PRIMARY CARE SECUR E MESSAGING: LOCAL TITLE: PRIMARY CARE SECURE MESSAGING STANDARD TITLE: PRIMARY CARE SECURE MESSAGING DATE OF NOTE: FEB 07, 2024@12:47 ENTRY DATE: FEB 07, 2024@12:47:53 AUTHOR: CAROL ANN POPE EXP COSIGNER: URGENCY: STATUS: COMPLETED PRIMARY CARE SECURE MESSAGING Has ADDENDA ------Original Message ------ Sent: 02/07/2024 09:29 AM ET From: YOSI CHOI To: [facility] Primary CareRuben R. ([place]) Subject: Appointment:Appointment Inquiry I need an appointment with a lung specialist as soon as it can be made. I am on oxygen 11/02 now in order to keep my stats at 90%. Without it they run from 76% to 81%. I have very little energy or appetite and am losing around 5 lbs. a week. I need help! Thank you, Yosi Choi PS Am I on automatic refills for the Eloquist? ------Original Message ------ Sent: 02/07/2024 01:47 PM ET From: CAROL ANN POPE To: YOSI CHOI Subject: Appointment:Appointment Inquiry Good afternoon, I will relay this to your provider. Also, no, we do not do auto refills here at [place]. I will request refill today. Carol Ann Pope tool grinder operator surface /farzad/ CAROL ANN POPE QUALITY HEAD NURSE Signed: 02/07/2024 12:47 Receipt Acknowledged By: 02/07/2024 13:06 /farzad/ Salvador Mcclure D.O. Staff Physician for LISSETH MIRANDA 02/07/2024 ADDENDUM STATUS: COMPLETED Records available in [facility]. Recommend pulm consult. /farzad/ CAROL ANN POPE, QUALITY HEAD NURSE Signed: 02/07/2024 12:51 02/07/2024 ADDENDUM STATUS: COMPLETED Pulmonology consult ordered. This may take mutiple weeks to get scheduled and completed. If pt has shortess of breath or unable to keep O2 sats > 89% with current oxygen prior to consult, he should present to the ED. Pulm may also want him to complete other tests (such as CT chest, PFTs) prior to consult if he has not had these completed anywhere else (which I couldn't find in [facility].) /farzad/ Salvador Mcclure D.O. Staff Physician Signed: 02/07/2024 13:08 Receipt Acknowledged By: * AWAITING SIGNATURE * CAROL ANN POPE ANGELA L [facility]
--- OUTSIDE RECORDS SUMMARY | 2024-04-20 12:54 | XMS_ITS | Encounter Summary ---
Author Name [facility] [place] Organization [place] Address [address] [place] [address] Care Team Providers Care Caving Guide Name Role Phone LISSETH GOMEZ Primary Care [...] Patient's Relationship to Policy [place] [employer]NA [facility] ([facility]) MEDICARE ADVANTAGE [facility] (WNR) Jul 22, 2022 [id number] [phone] 2 OMAR CHOI PATIENT Selected Encounter This section includes the information on record at [place] for the Encounter. Date/Time Encounter Type Encounter Description Reason Pro vider Source [facility] Encounter Template Text not used by [place]
--- OUTSIDE RECORDS SUMMARY | 2024-04-20 12:54 | XMS_ITS | Encounter Summary ---
Author Name Department of [place]a [place] Organization [place] Address [address] [place] [address] Care Team Providers Care Channel Sales Director Name Role Phone LISSETH GOMEZ Primary Care Provider Unavaila [facility] Insurance Providers: All historical and current [...] MEDICARE ADVANTAGE [facility] (WNR) Jul 22, 2022 [id number] [phone] 2 OMAR CHOI PATIENT Selected Encounter This section includes the information on record at [place] for the Encounter. Date/Time Encounter Type Encounter Description Reason Provider Source Apr 16, 2024 09:50 AM Outpatient Encounter ADMIN PAT ACTIVTIES (MASNONCT) UCHE LYLE Encounter Template Text not used by [place] Plan of Treatment: Future Appointments (+ 6 months) and Future Tests (+/- 45 days) The Plan of Treatment section includes future care activities for the patient from all [place] treatmentfacilities. This section includes future appointments and future orders which are active, pending or scheduled. Future Appointments This section includes appointments that were scheduled to occur 6 months from the date of the Encounter, up to a maximum of 20 appointments. The data comes from all [place] treatment facilities. Appointment Date/Time Appointment Type Appointme nt Facility Name Jul 30, 2024 11:20 AM AMBULATORY - MEDICINE [facility] Jul 30, 2024 02:00 PM AMBULATORY - MEDICINE [facility] Active, Pending, and Scheduled Orders This section includes a listing of several types of active, pending, and scheduled orders, including clinic medications orders, diagnostic test orders, procedure orders and consult orders; where the start date of the order is 45 days before the date of the Encounter or 45 days after the date of theEncounter. The data comes from all [facility]. Test Date/Time Test Type Test Details Facility Name Mar 16, 2024 11:47 AM Consult Order COMMUNITY CARE-ECHOCARDIOGRAPHY Cons Transition Teacher's Choice [facility] Social History: Smoking Status (Most current) and Tobacco Use (All prior to encounter date) This section includes the most current, and the historical, smoking and tobacco- related health factors from the [place] facility where the Encounter took place. Current Smoking Status This section includes the most current smoking, or tobacco-related health factor, from the [place] facility where the Encounter took place. Date/Time Current Smoking Status Comment Facil ity Oct 10, 2023 09:00 AM VA-TOBACCO FORMER USER [facility] Tobacco Use History This section includes a history of the smoking, or tobacco-related health factors, that were collected on or before the date of the Encounter. The data comes from the [place] facility where the Encounter took place. Date/Time Smoking Status/Tobacco Use Comment F acility Oct 10, 2023 09:00 AM [place]-TOBACCO QUIT 15 YRS OR MORE [facility] Radiology Reports: +/- 30 days of the [...] the Encounter. The data comes from all [facility]. Date/Time Radiology Report Provider Source Mar 30, 2024 08:[address] (C) CHEST (P): YOSI CHOI [id number] -[id number] M Exm Date: MAR 30, 2024@08:46 Req Phys: BARBARA CHRISTIAN Pat Loc: [facility] PULM EVAL (Req'g Loc) Img Loc: CT IMAGING Service: [place] [address] (Case [id number] COMPLETE) CT (C) CHEST W/O CONTRAST (CT Detailed) CPT:53438 Reason for Study: evaluate for ILD Clinical [...] data available for: CREATININE .CREAT EGFR(CKD-EPI) Allergies: ([place] only) AMIODARONE (Oct 10, 2023) GOLDENROD POLLEN (Oct 10, 2023) Report Status: Verified Date Reported: MAR 30, 2024 Date Verified: MAR 30, 2024 Combination Machine Tool Setter E-Sig:/ES/ARELY DRAKE MD Report: CT CHEST WITHOUT [...] the right lower lobe with associated honeycombing. Ssqd-gq-enjsgkoh emphysematous changes. MEDIASTINUM: Thyroid unremarkable. Atherosclerotic thoracic [...] Primary Interpreting Staff: ARELY DRAKE MD, RADIOLOGIST (Combination Machine Tool Setter) /ARELY [facility] Encounter Notes: All associated encounter notes This section contains the clinical notes associated to the Encounter. Date/Time Encounter Note(s) Provider Source Apr 16, 2024 09:50 AM PULMONARY NOTE: LOCAL TITLE: PUL INTERSTITIAL LUNG DIRECTOR OF CORPORATE MARKETING NOTE STANDARD TITLE: PULMONARY NOTE DATE OF NOTE: APR 16, 2024@09:50 ENTRY DATE: APR 16, 2024@09:51 AUTHOR: CANDICE ISAAC EXP COSIGNER: URGENCY: STATUS: COMPLETED PUL INTERSTITIAL LUNG DIRECTOR OF CORPORATE MARKETING NOTE Has ADDENDA Reviewed following education with Byron this morning: -Pulmonary Fibrosis cannot be cured. -Pirfenidone has been shown to put the brakes on the fibrosis (scarring) and decline in lung function. -Unfortunately, Pirfenidone has NOT been shown to improve symptoms of shortness of breath in patients with Idiopathic Pulmonary Fibrosis. -You must be 3 months smoke-free to be prescribed this medication. Smoking may lower how well this drug works. -Some patients experiencing elevations in their liver enzymes while taking this medication. Because of this, we will be checking these levels monthly for the first 6 months and every 3 months thereafter to ensure Pirfenidone is not causing damage to your liver. -It is important to take Pirfenidone with food -If you have heartburn, upset stomach, stomach pain, vomiting, or loss of appetite, please call pulmonary nurses/call center. There may be ways to reduce these side effects -Gradual titration schedule (1 tab TID first week, 2 tabs TID second week, 3 tabs TID third week).This allows your body to adjust to the medication and for us to know how you are responding to the medication (i.e. any side effects) -Some patients taking this medication experienced rashes and/or become sunburned more easily. Avoid sun, sunlamps, and tanning beds. Use sunscreen and wear clothing and eyewear that protects you from the sun. Call pulmonary nurses/call center should you develop a rash after starting this medication. Sent pt: Gregoria Pt education: Pirfenidone & Idiopathic Pulmonary Fibrosis /farzad/ CANDICE ISAAC RN Staff Nurse/Pulmonary Instructor Physical Signed: 04/16/2024 10:09 04/16/2024 ADDENDUM STATUS: COMPLETED Reviewed Pirfenidone education w/[facility] and Yosi this morning, see attached. Need baseline LFTs prior to initiating medication--will be done locally at [facility] lab consult placed. F/u plan: -baseline LFTs *prior* to starting Pirfenidone. We will call when results received to give them the ok to start Pirfenidone -f/u monthly for LFT's x 6 months, [facility] consult placed -f/u w/Dr. Lyle 07/30/23 w/PFTs prior -call with issues [phone] /farzad/ CANDICE ISAAC RN Staff Nurse/Pulmonary Instructor Physical Signed: 04/16/2024 10:12 04/16/2024 ADDENDUM STATUS: COMPLETED Regarding 07/30/24 appts, [facility] requesting an early appt with as they take [place] and need to leave early. Reviewed with Dr. Lyle, pt should come to clinic after PFTs at 11:20--clinic staff can message him and he will plan to see them early. [facility] was very appreciative of this accomodation. /farzad/ CANDICE ISAAC chief of anesthesiology Nurse/Pulmonary Instructor Physical Signed: 04/16/2024 10:50 CANDICE ISAAC [facility]
--- OUTSIDE RECORDS SUMMARY | 2024-04-20 12:54 | XMS_ITS | Encounter Summary ---
Author Name [facility] Organization [facility] [place] Address [address] [place] [id number] Care Team Providers Care Route Clerk Name Role Phone LISSETH GOMEZ Primary Care Provider [facility] Insurance Providers: All historical and current [...] Name Patient's Relationship to Policy [place] [employer] [facility] (WNR) MEDICARE ADVANTAGE MCR (WNR) Jul 22, 2022 [id number] OMAR CHOI PATIENT Selected Encounter This section includes the information on record at [place] for the Encounter. Date/Time Encounter Type Encounter Description Reason Provider Source Mar 16, 2024 10:20 AM CO/OSMAR DIFFUSE CAPACITY PULMONARY FUNCTION ICD-10-CM J84.9 Interstitial pulmonary disease, unspecified [facility] Encounter Template Text not used by [place] Assessments - Encounter Diagnoses This section includes the primary and secondary diagnoses documented for the Encounter. Date/Time Primary/Secondary Diagnosis Diagnosis Name Provider Source Mar 17, 2024 12:10 PM PRIMARY Interstitial pulmonary disease, unspecified REANNA LAZARO [facility] Plan of Treatment: Future Appointments (+ 6 months) and Future Tests (+/- 45 days) The Plan of Treatment section includes future care activities for the patient from all [place] treatmentfacilities. This section includes future appointments and future orders which are active, pending or scheduled. Future Appointments This section includes appointments that were scheduled to occur 6 months from the date of the Encounter, up to a maximum of 20 appointments. The data comes from all [facility]. Appointment Date/Time Appointment Type Appointme nt Facility Name Mar 30, 2024 11:15 AM [facility] Jul 30, 2024 11:20 AM AMBULATORY - MEDICINE [facility] Jul 30, 2024 02:00 PM AMBULATORY - MEDICINE [facility] Active, Pending, and Scheduled Orders This section includes a listing of several types of active, pending, and scheduled orders, including clinic medications orders, diagnostic test orders, procedure orders and consult orders; where the start date of the order is 45 days before the date of the Encounter or 45 days after the date of theEncounter. The data comes from all [facility]. Test Date/Time Test Type Test Details Facility Name Mar 16, 2024 11:47 AM Consult Order COMM[facility]ITY [facility]ARE-ECHOCARDIOGRAPHY Cons [employer] [facility] Vital Signs: All taken on the encounter date This section contains inpatient and outpatient Vital Signs collected on the date of the Encounter. Date/Time Temperature Pulse Blood Pressure Respiratory Rate SP02 Pain Height Weight Body Mass Index Source Mar 16, 2024 10:58 AM 97.4 68 118/77 18 88 0 65 159 27 [facility] Social History: Smoking Status (Most current) and Tobacco Use (All prior to encounter date) This section includes the most current, and the historical, smoking and tobacco- related health factors from the [place] facility where the Encounter took place. Current Smoking Status This section includes the most current smoking, or tobacco-related health factor, from the [place] facility where the Encounter took place. Date/Time Current Smoking Status Comment Facil ity Oct 10, 2023 09:00 AM [place]-TOBACCO FORMER USER [facility] Tobacco Use History This section includes a history of the smoking, or tobacco-related health factors, that were collected on or before the date of the Encounter. The data comes from the [place] facility where the Encounter took place. Date/Time Smoking Status/Tobacco Use Comment F acility Oct 10, 2023 09:00 AM [place]-TOBAC[place] QUIT 15 YRS OR MORE [facility] Radiology Reports: +/- 30 days of [...] the Encounter. The data comes from all [place] treatment facilities. Date/Time Radiology Report Provider Source Mar 30, 2024 08:[address] (C) CHEST (P): TORY CHOI [id number] -[id number] M Exm Date: MAR 30, 2024@08:46 Req Phys: BARBARA CHRISTIAN Loc: [facility] PULM EVAL (Req'g Loc) Img Loc: CT IMAGING Service: [place] [address] (Case [id number] COMPLETE) CT (C) CHEST W/O CONTRAST (CT Detailed) CPT:59819 Reason for Study: evaluate for ILD Clinical [...] data available for: CREATININE .CREAT EGFR(CKD-EPI) Allergies: ([place] only) AMIODARONE (Oct 10, 2023) GOLDENROD POLLEN (Oct 10, 2023) Report Status: Verified Date Reported: MAR 30, 2024 Date Verified: MAR 30, 2024 Detail Manager E-Sig:/ES/ARELY DRAKE MD Report: CT CHEST [...] the right lower lobe with associated honeycombing. Tubm-il-iryrnjim emphysematous changes. MEDIASTINUM: Thyroid unremarkable. Atherosclerotic thoracic [...] Primary Interpreting Staff: ARELY DRAKE MD, RADIOLOGIST (Detail Manager) /[facility]
--- OUTSIDE RECORDS SUMMARY | 2024-04-20 12:54 | XMS_ITS | Encounter Summary ---
Author Name [facility] [place] Organization [facility] [place] [facility] [place] Address [address] [place] [id number] Care Team Providers Care Head Baggage Porter Name Role Phone LISSETH GOMEZ Primary Care Provider Unavaila [facility] Insurance Providers: All historical and current [...] Name Patient's Relationship to Policy [place] [employer] [facility] (WNR) MEDICARE ADVANTAGE MCR (WNR) Jul 22, 2022 [id number] OMAR CHOI PATIENT Selected Encounter This section includes the information on record at [place] for the Encounter. Date/Time Encounter Type Encounter Description Reason Provider Source Mar 16, 2024 11:00 AM OFFICE O/P [place] 60 MIN PULMONARY/CHEST ICD-10-CM J84.9 Interstitial pulmonary disease, unspecified UCHE LYLE Shani Encounter Template Text not used by [place] Assessments - Encounter Diagnoses This section includes the primary and secondary diagnoses documented for the Encounter. Date/Time Primary/Secondary Diagnosis Diagnosis Name Provider Source Mar 16, 2024 01:19 PM PRIMARY Interstitial pulmonary disease, unspecified UCHE LYLE [facility] Mar 16, 2024 01:19 PM SECONDARY Chronic respiratory failure with hypoxia UCHE LYLE [facility] Mar 16, 2024 01:19 PM SECONDARY Other secondary pulmonary hypertension UCHE LYLE [facility] Mar 16, 2024 01:19 PM SECONDARY Unspecified atrial fibrillation UCHE LYLE [facility] Plan of Treatment: Future Appointments (+ 6 months) and Future Tests (+/- 45 days) The Plan of Treatment section includes future care activities for the patient from all [place] [facility] This section includes future appointments and future orders which are active, pending or scheduled. Future Appointments This section includes appointments that were scheduled to occur 6 months from the date of the Encounter, up to a maximum of 20 appointments. The data comes from all [facility]. Appointment Date/Time Appointment Type Appointme nt Facility Name Mar 30, 2024 11:15 AM AMBULATORY - NONE [facility] Jul 30, 2024 11:20 AM AMBULATORY - MEDICINE [facility] Jul 30, 2024 02:00 PM AMBULATORY MEDICINE [facility] Active, Pending, and Scheduled Orders This section includes a listing of several types of active, pending, and scheduled orders, including clinic medications orders, diagnostic test orders, procedure orders and consult orders; where the start date of the order is 45 days before the date of the Encounter or 45 days after the date of theEncounter. The data comes from all [facility]. Test Date/Time Test Type Test Details Facility Name Mar 16, 2024 11:47 AM Consult Order COMMUNITY CARE-ECHOCARDIOGRAPHY Cons Pattern Finisher's Choice [facility] Vital Signs: All taken on the encounter date This section contains inpatient and outpatient Vital Signs collected on the date of the Encounter. Date/Time Temperature Pulse Blood Pressure Respiratory Rate SP02 Pain Height Weight Body Mass Index Source Mar 16, 2024 10:58 AM 97.4 68 118/77 18 88 0 65 159 27 [facility] Social History: Smoking Status (Most current) and Tobacco Use (All prior to encounter date) This section includes the most current, and the historical, smoking and tobacco- related health factors from the [place] facility where the Encounter took place. Current Smoking Status This section includes the most current smoking, or tobacco-related health factor, from the [place] facility where the Encounter took place. Date/Time Current Smoking Status Comment Emil herr Oct 10, 2023 09:00 AM VA-TOBACCO FORMER USER [facility] Tobacco Use History This section includes a history of the smoking, or tobacco-related health factors, that were collected on or before the date of the Encounter. The data comes from the [place] facility where the Encounter took place. Date/Time Smoking Status/Tobacco Use Comment F acility Oct 10, 2023 09:00 AM VA-TOBACCO QUIT [address] [facility] [...] the Encounter. The data comes from all [place] treatment facilities. Date/Time Radiology Report Provider Source Mar 30, 2024 08:[address] (C) CHEST (P): TORY CHOI [id number] M Exm Date: MAR 30, 2024@08:46 Req Phys: BARBARA CHRISTIAN Pat Loc: [facility] PULM EVAL (Req'g Loc) Img Loc: CT IMAGING Service: [place] [address] (Case [id number] COMPLETE) CT (C) CHEST W/O CONTRAST (CT Detailed) CPT:72065 Reason for Study: evaluate for ILD Clinical [...] data available for: CREATININE .CREAT EGFR(CKD-EPI) Allergies: ([place] only) AMIODARONE (Oct 10, 2023) GOLDENROD POLLEN (Oct 10, 2023) Report Status: Verified Date Reported: MAR 30, 2024 Date Verified: MAR 30, 2024 Combine Inspector E-Sig:/ES/ARELY DRAKE MD Report: CT CHEST WITHOUT [...] the right lower lobe with associated honeycombing. [id number] emphysematous changes. MEDIASTINUM: Thyroid unremarkable. Atherosclerotic thoracic [...] Primary Interpreting Staff: ARELY DRAKE MD, RADIOLOGIST (Combine Inspector) /[facility]ELY [facility] Encounter Notes: All associated encounter notes This section contains the clinical notes associated to the Encounter. Date/Time Encounter Note(s) Provider Source Apr 06, 2024 08:59 AM ADDENDUM: LOCAL TITLE: Addendum STANDARD TITLE: ADDENDUM DATE OF NOTE: APR 06, 2024@08:59:49 ENTRY DATE: APR 06, 2024@08:59:50 AUTHOR: UCHE LYLE EXP COSIGNER: URGENCY: STATUS: COMPLETED Outside [facility] images still not loaded for comparisons. Will ask [facility] to follow up with file room (per [facility] note, was sent to file room 11d ago). 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 Patient seen and examined, AAOx4, sitting in a wheelchair, in no distress. Complains of shortness of breath on exertion, associated dry cough. Shortness of breath has progressively gotten worse for the past couple of years. Now at home on continuous oxygen 2L, pulse oximeter at home usually ~95% at rest, however if he ambulates usually drops to mid 80s. Patient unable to ambulate without oxygen as his saturation drops to low 70s. Poor functional status, as he is barely able to walk around his home and not able to go up one flight of stairs. Patient denies chest tightness, chest pain, sputum production, fever, chills, night sweats, unintentional weight loss, hemoptysis. States over the past 2 weeks he has been using Albuterol nebulizer 2-3 times daily prescribed by his PCP with some improvement in SOB and functional status. In the past, he has been taking Amiodarone for about 2 years, which he stopped in 2021 after seen a Senior Bioinformatics Specialist in [facility]. He has done CT chest, TTE and PFTs at [place] in 2021, will try to obtain those results. Allergies: AMIODARONE (Oct 10, 2023) GOLDENROD POLLEN (Oct 10, 2023) Family history: Past medical history: Computerized Problem List is the source for the followin. Atrial fibrillation ACTIVE 2. Ibarra's esophagus ACTIVE 3. Hyperlipidemia ACTIVE 4. Type 2 diabetes mellitus ACTIVE 5. Hypothyroidism ACTIVE 6. Age related macular degeneration ACTIVE 7. Benign prostatic hyperplasia ACTIVE 8. Chronic dermatitis ACTIVE 9. 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 Coronary heart disease ACTIVE 12. History of placement of stent for coronary artery ACTIVE 13. Transient cerebral ischemia ACTIVE 14. Tachycardia ACTIVE Wide complex tachycardia 15. Long-Term Current Use of Anticoagulant ([facility] [id number] ACTIVE Medications: Active Outpatient Medications (including Supplies): Active Outpatient Medications Status 1) APIXABAN 5MG TAB TAKE ONE TABLET BY MOUTH EVERY 12 ACTIVE HOURS TO PREVENT STROKES Active Non-VA Medications Status 1) Non-VA ASCORBIC ACID 500MG TAB 500MG MOUTH EVERY DAY ACTIVE 2) Non-VA ATORVASTATIN CALCIUM 80MG TAB 80MG MOUTH EVERY ACTIVE DAY 3) Non-VA CHOLECALCIF 10MCG (D3-400UNIT) TAB 20MCG MOUTH ACTIVE DAILY 4) Non-VA GLIPIZIDE 10MG TAB 10MG MOUTH EVERY DAY ACTIVE 5) Non-VA LEVOTHYROXINE NA (SYNTHROID) 50MCG TAB 50MCG ACTIVE MOUTH EVERY DAY 6) Non-VA LUTEIN CAP/TAB 20 MG MOUTH DAILY ACTIVE 7) Non-VA METFORMIN HCL 500MG 24HR SA TAB 500MG MOUTH ACTIVE TWICE A DAY 8) Non-VA METOPROLOL SUCCINATE 50MG SA TAB 50MG MOUTH ACTIVE DAILY 9) Non-VA MULTIVITAMIN/MINERALS SENIOR FORMULA TAB 1 ACTIVE TABLET MOUTH DAILY 10) Non-VA NITROGLYCERIN 0.4MG SL TAB 0.4MG UNDER THE ACTIVE TONGUE EVERY 5 MINUTES FOR UP TO 3 DOSES IF NEEDED 11) Non-VA OMEPRAZOLE 20MG EC CAP 20MG MOUTH TWICE A DAY ACTIVE 12) Non-VA SOTALOL HCL 120MG TAB 120MG MOUTH TWO TIMES A ACTIVE DAY 13) Non-VA TAMSULOSIN HCL 0.4MG CAP 0.4MG MOUTH DAILY ACTIVE 14) Non-VA TRIAMCINOLONE ACETONIDE 0.1% CREAM A THIN ACTIVE LAYER TOPICALLY THREE TIMES A DAY NEEDED 15) Non-VA ZZFISH OIL 1000MG (500MG DHA/EPA) CAP 1000MG ACTIVE MOUTH DAILY 16 Total Medications MEDICATION RECONCILIATION Outpatient At this visit I have reviewed the medication list, and discussed relevant medications with the patient/surrogate. An updated patient medication list was given to the participant(s). Vitals: Blood pressure: 118/77 (03/16/2024 10:58) Pulse: 68 (03/16/2024 10:58) Respiration: 18 (03/16/2024 10:58) Temperature: 97.4 F [36.3 C] (03/16/2024 10:58) Weight: 159 lb [72.12 kg] (03/16/2024 10:58) Pulse Oximetry: 88% (03/16/2024 10:58) Physical Exam: Gen:AAOx3 Card:RRR Pulm:b/l air entry, no wheezing, no crackles Extrem: clubbed fingers, no edema Neuro: intact neuro Radiology reports: Last CXR: No Radiology exams found. Last chest CT: No Radiology exams found. CT Angiogram in last year: No data available Pet Scan: No data available PFT (03/16/24) restrictive pattern. Significant reduction diffusion capacity DLCO 3.75. TTE (July, at [facility]): LVEF 40-45%. RVSP 30 mmHg. Labs, tests and imaging results listed in pulmonary note were discussed with patient. 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 TTE to evaluate cardiac function and pulmonary hypertension. In the event of starting antifibrolytic therapy, risk and benefits discuss with patient and family. I have discussed the patient with my supervising/collaborating practitioner, Dr. Lyle, and they agree with my assessment/plan. If you have questions or urgent need to contact the pulmonary service, please refer to the presser cotton ginning-calendar. Barbara Christian MD Pulmonary and Critical Care Fellow /kerry CHRISTIAN PULMONARY AND CRITICAL CARE FELLOW Signed: 03/16/2024 13:11 Receipt Acknowledged By: 03/16/2024 19:19 /farzad/ UCHE LYLE MD, MS STAFF, PULMONARY MEDICINE 03/18/2024 09:33 /farzad/ PIETRO STRANGE A [employer] Pasture Farm Manager 03/24/2024 14:49 /farzad/ CRISTY HERNANDEZ LEAD FIELD INVESTIGATOR 03/16/2024 ADDENDUM STATUS: COMPLETED Please try to obtain results for Chest CT, TTE, PFTs and Pulmonary notes from [facility] between [id number]. /farzad/ BARBARA CHRISTIAN PULMONARY AND CRITICAL CARE FELLOW Signed: 03/16/2024 13:14 Receipt Acknowledged By: 03/18/2024 12:23 /farzad/ CRISTY HERNANDEZ LEAD FIELD INVESTIGATOR 03/16/2024 13:18 /farzad/ UCHE LYLE MD, MS STAFF, PULMONARY MEDICINE 03/16/2024 ADDENDUM STATUS: COMPLETED Patient would like to purchase portable home oxygen. Please assist. /farzad/ BARBARA CHRISTIAN PULMONARY AND CRITICAL CARE FELLOW Signed: 03/16/2024 13:16 Receipt Acknowledged By: 03/16/2024 13:19 /es/ UCHE LYLE MD, MS STAFF, PULMONARY MEDICINE 03/17/2024 12:43 /es/ DEBBIE GARCIA, RT RESPIRATORY THERAPIST 03/16/2024 ADDENDUM STATUS: COMPLETED was seen, examined, and discussed with fellow and I personally reviewed imaging and/or test results as documented in this note. The note above reflects our mutual assessment and plan. 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 Need to get outside records, but had ILD workup at [facility] with conclusion that ILD was due to amiodarone. says was on high-dose amiodarone for a while and then was supposed to transition to usual low-dose for AFib, but somehow ended up on ~2 years of higher dose amiodarone. If true, this would indeed increase risk of amiodarone pulmonary toxicity. Has poor functional status, with only being able to climb 1 flight of stairs. Also on chronic O2 at 2LPM. Does not recall any discussion about antifibrotics, although drug-induced lung disease should likely not be as progressive as other ILDs. Interestingly, PFTs show fairly preserved volumes, with FVC of 2.2L (75% of normal), but quite low DLCO of 18% of predicted which explains his chronic hypoxic respiratory failure, resting room air SpO2 of 88% and his O2 needs. Hard to know if this is purely from ILD or may have some cardiac component also. --> Get chest CT now (has been ~1.5 years since last one per his report). --> Will get outside [facility] CT chests, PFTs, and pulmonary clinic notes. --> Once those records are available, can decide about any further workup, next interval visit, consideration of antifibrotics, etc. 2) Pulmonary HTN Was fairly mild by echo Jul 2021 at [facility], with RVSP 30 mmHg. 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 Would not be inclined to add inhaled treprostinil given low LVEF; would also require a R heart cath which seems perhaps overly aggressive at this time. --> Repeat echocardiogram in next several months. 3) Chronic hypoxic respiratory failure Due to #1 and #2 above. [place] wants to get portable oxygen concentrator. We discussed that this isnot available on [facility]. They are getting home O2 via non- [facility] vendor and paying fairly low mckeon, but current POC only lasts ~30 min. --> Will ask our home O2 coordinator to reach out with options/recommendations if they wish to purchase their own POC. 4) Poor functional status Has not been through pulmonary rehab. We discussed today in clinic, but would like to complete above workup prior to [place] referral. --> Consider [place] in near future once above workup completed. RTC TBD pending above, but will plan to assume care of ILD longitudinally. Total time today, including personal review of medical records, imaging/test results, clinic visit, documentation, and orders: >60 minutes. /farzad/ UCHE LYLE MD, MS STAFF, PULMONARY MEDICINE Signed: 03/16/2024 18:51 03/18/2024 ADDENDUM STATUS: COMPLETED Records requested from [place] /farzad/ PIETRO Lemons [employer] Oil[employer] Pasture Farm Manager Signed: 03/18/2024 14:31 03/26/2024 ADDENDUM STATUS: COMPLETED Records received from [place], sent to File room /farzad/ PIETRO Lemons [employer] Pasture Farm Manager Signed: 03/26/2024 08:57 Receipt Acknowledged By: 03/26/2024 09:42 /farzad/ UCHE LYLE MD, MS STAFF, PULMONARY MEDICINE 03/31/2024 ADDENDUM STATUS: COMPLETED Alerting Dr. Lyle to CT [facility] 03/30/2024 [facility] Impression: 1. Subpleural reticular markings, bronchiectatic changes, [...] mm. 7. Suspect layering gallstones without cholecystitis. /farzad/ YESENIA TEMPLE MD PULMONARY AND CRITICAL CARE STAFF PHYSICIAN Signed: 03/31/2024 13:16 Receipt Acknowledged By: * AWAITING SIGNATURE * QUINTONDODIEUCHE Huston 03/31/2024 ADDENDUM STATUS: COMPLETED Still awaiting [facility] chest CT for assessment of any progression. /kerry LYLE MD, MS STAFF, PULMONARY MEDICINE Signed: 03/31/2024 15:[address] [facility] Mar 31, 2024 01:15 PM ADDENDUM: LOCAL TITLE: Addendum STANDARD TITLE: ADDENDUM DATE OF NOTE: MAR 31, 2024@13:15:50 ENTRY DATE: MAR 31, 2024@13:15:51 AUTHOR: YESENIA TEMPLE EXP COSIGNER: URGENCY: STATUS: COMPLETED Alerting Dr. Lyle to CT chest 03/30/2024 (ordered by Dr. Christian in Pul Eval): Impression: 1. Subpleural reticular markings, bronchiectatic changes, [...] mm. 7. Suspect layering gallstones without cholecystitis. 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 Patient seen and examined, AAOx4, sitting in a wheelchair, in no distress. Complains of shortness of breath on exertion, associated dry cough. Shortness of breath has progressively gotten worse for the past couple of years. Now at home on continuous oxygen 2L, pulse oximeter at home usually ~95% at rest, however if he ambulates usually drops to mid 80s. Patient unable to ambulate without oxygen as his saturation drops to low 70s. Poor functional status, as he is barely able to walk around his home and not able to go up one flight of stairs. Patient denies chest tightness, chest pain, sputum production, fever, chills, night sweats, unintentional weight loss, hemoptysis. States over the past 2 weeks he has been using Albuterol nebulizer 2-3 times daily prescribed by his PCP with some improvement in SOB and functional status. In the past, he has been taking Amiodarone for about 2 years, which he stopped in 2021 after seen a Senior Bioinformatics Specialist in [facility]. He has done CT chest, TTE and PFTs at [place] in 2021, will try to obtain those results. Allergies: AMIODARONE (Oct 10, 2023) GOLDENROD POLLEN (Oct 10, 2023) Family history: Past medical history: Computerized Problem List is the source for the followin. Atrial fibrillation ACTIVE 2. Ibarra's esophagus ACTIVE 3. Hyperlipidemia ACTIVE 4. Type 2 diabetes mellitus ACTIVE 5. Hypothyroidism ACTIVE 6. Age related macular degeneration ACTIVE 7. Benign prostatic hyperplasia ACTIVE 8. Chronic dermatitis ACTIVE 9. 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 Coronary heart disease ACTIVE 12. History of placement of stent for coronary artery ACTIVE 13. Transient cerebral ischemia ACTIVE 14. Tachycardia ACTIVE Wide complex tachycardia 15. Long-Term Current Use of Anticoagulant (SCT 015865 ACTIVE Medications: Active Outpatient Medications (including Supplies): Active Outpatient Medications Status 1) APIXABAN 5MG TAB TAKE ONE TABLET BY MOUTH EVERY 12 ACTIVE HOURS TO PREVENT STROKES Active Non-VA Medications Status 1) Non-VA ASCORBIC ACID 500MG TAB 500MG MOUTH EVERY DAY ACTIVE 2) Non-VA ATORVASTATIN CALCIUM 80MG TAB 80MG MOUTH EVERY ACTIVE DAY 3) Non-VA CHOLECALCIF 10MCG (D3-400UNIT) TAB 20MCG MOUTH ACTIVE DAILY 4) Non-VA GLIPIZIDE 10MG TAB 10MG MOUTH EVERY DAY ACTIVE 5) Non-VA LEVOTHYROXINE NA (SYNTHROID) 50MCG TAB 50MCG ACTIVE MOUTH EVERY DAY 6) Non-VA LUTEIN CAP/TAB 20 MG MOUTH DAILY ACTIVE 7) Non-VA METFORMIN HCL 500MG 24HR SA TAB 500MG MOUTH ACTIVE TWICE A DAY 8) Non-VA METOPROLOL SUCCINATE 50MG SA TAB 50MG MOUTH ACTIVE DAILY 9) Non-VA MULTIVITAMIN/MINERALS SENIOR FORMULA TAB 1 ACTIVE TABLET MOUTH DAILY 10) Non-VA NITROGLYCERIN 0.4MG SL TAB 0.4MG UNDER THE ACTIVE TONGUE EVERY 5 MINUTES FOR UP TO 3 DOSES IF NEEDED 11) Non-VA OMEPRAZOLE 20MG EC CAP 20MG MOUTH TWICE A DAY ACTIVE 12) Non-VA SOTALOL HCL 120MG TAB 120MG MOUTH TWO TIMES A ACTIVE DAY 13) Non-VA TAMSULOSIN HCL 0.4MG CAP 0.4MG MOUTH DAILY ACTIVE 14) Non-VA TRIAMCINOLONE ACETONIDE 0.1% CREAM A THIN ACTIVE LAYER TOPICALLY THREE TIMES A DAY NEEDED 15) Non-VA ZZFISH OIL 1000MG (500MG DHA/EPA) CAP 1000MG ACTIVE MOUTH DAILY 16 Total Medications MEDICATION RECONCILIATION Outpatient At this visit I have reviewed the medication list, and discussed relevant medications with the patient/surrogate. An updated patient medication list was given to the participant(s). Vitals: Blood pressure: 118/77 (03/16/2024 10:58) Pulse: 68 (03/16/2024 10:58) Respiration: 18 (03/16/2024 10:58) Temperature: 97.4 F [36.3 C] (03/16/2024 10:58) Weight: 159 lb [72.12 kg] (03/16/2024 10:58) Pulse Oximetry: 88% (03/16/2024 10:58) Physical Exam: Gen:AAOx3 Card:RRR Pulm:b/l air entry, no wheezing, no crackles Extrem: clubbed fingers, no edema Neuro: intact neuro Radiology reports: Last CXR: No Radiology exams found. Last chest CT: No Radiology exams found. CT Angiogram in last year: No data available Pet Scan: No data available PFT (03/16/24) restrictive pattern. Significant reduction diffusion capacity DLCO 3.75. TTE (July, at [facility]): LVEF 40-45%. RVSP 30 mmHg. Labs, tests and imaging results listed in pulmonary note were discussed with patient. 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 TTE to evaluate cardiac function and pulmonary hypertension. In the event of starting antifibrolytic therapy, risk and benefits discuss with patient and family. I have discussed the patient with my supervising/collaborating practitioner, Dr. Lyle, and they agree with my assessment/plan. If you have questions or urgent need to contact the pulmonary service, please refer to the presser cotton ginning-calendar. Barbara Christian MD Pulmonary and Critical Care Fellow /farzad/ BARBARA CHRISTIAN PULMONARY AND CRITICAL CARE FELLOW Signed: 03/16/2024 13:11 Receipt Acknowledged By: 03/16/2024 19:19 /farzad/ UCHE LYLE MD, MS STAFF, PULMONARY MEDICINE 03/18/2024 09:33 /es/ PIETRO Lemons [employer] Oil[employer] Or Pasture Farm Manager 03/24/2024 14:49 /es/ CRISTY HERNANDEZ LEAD FIELD INVESTIGATOR 03/16/2024 ADDENDUM STATUS: COMPLETED Please try to obtain results for Chest CT, TTE, PFTs and Pulmonary notes from [facility] between [id number]. /es/ BARBARA CHRISTIAN PULMONARY AND CRITICAL CARE FELLOW Signed: 03/16/2024 13:14 Receipt Acknowledged By: 03/18/2024 12:23 /es/ CRISTY HERNANDEZ LEAD FIELD INVESTIGATOR 03/16/2024 13:18 /es/ UCHE LYLE MD, MS STAFF, PULMONARY MEDICINE 03/16/2024 ADDENDUM STATUS: COMPLETED Patient would like to purchase portable home oxygen. Please assist. /farzad/ BARBARA CHRISTIAN PULMONARY AND CRITICAL CARE FELLOW Signed: 03/16/2024 13:16 Receipt Acknowledged By: 03/16/2024 13:19 /es/ UCHE LYLE MD, MS STAFF, PULMONARY MEDICINE 03/17/2024 12:43 /es/ DEBBIE GARCIA, RT RESPIRATORY THERAPIST 03/16/2024 ADDENDUM STATUS: COMPLETED [place] was seen, examined, and discussed with fellow and I personally reviewed imaging and/or test results as documented in this note. The note above reflects our mutual assessment and plan. 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 Need to get outside records, but had ILD workup at [facility] with conclusion that ILD was due to amiodarone. says was on high-dose amiodarone for a while and then was supposed to transition to usual low-dose for AFib, but somehow ended up on ~2 years of higher dose amiodarone. If true, this would indeed increase risk of amiodarone pulmonary toxicity. Has poor functional status, with only being able to climb 1 flight of stairs. Also on chronic O2 at 2LPM. Does not recall any discussion about antifibrotics, although drug-induced lung disease should likely not be as progressive as other ILDs. Interestingly, PFTs show fairly preserved volumes, with FVC of 2.2L (75% of normal), but quite low DLCO of 18% of predicted which explains his chronic hypoxic respiratory failure, resting room air SpO2 of 88% and his O2 needs. Hard to know if this is purely from ILD or may have some cardiac component also. --> Get chest CT now (has been ~1.5 years since last one per his report). --> Will get outside [facility] CT chests, PFTs, and pulmonary clinic notes. --> Once those records are available, can decide about any further workup, next interval visit, consideration of antifibrotics, etc. 2) Pulmonary HTN Was fairly mild by echo Jul 2021 at [facility], with RVSP 30 mmHg. 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 Would not be inclined to add inhaled treprostinil given low LVEF; would also require a R heart cath which seems perhaps overly aggressive at this time. --> Repeat echocardiogram in next several months. 3) Chronic hypoxic respiratory failure Due to #1 and #2 above. wants to get portable oxygen concentrator. We discussed that this isnot available on current [place] home oxygen contract. They are getting home O2 via [facility] vendor and paying fairly low mckeon, but current POC only lasts ~30 min. --> Will ask our home O2 coordinator to reach out with options/recommendations if they wish to purchase their own POC. 4) Poor functional status Has not been through pulmonary rehab. We discussed today in clinic, but would like to complete above workup prior to NM referral. --> Consider NM in near future once above workup completed. RTC TBD pending above, but will plan to assume care of ILD longitudinally. Total time today, including personal review of medical records, imaging/test results, clinic visit, documentation, and orders: >60 minutes. /farzad/ UCHE LYLE MD, MS STAFF, PULMONARY MEDICINE Signed: 03/16/2024 18:51 03/18/2024 ADDENDUM STATUS: COMPLETED Records requested from [place] /farzad/ PIETRO Lemons [employer] Farm Manager Signed: 03/18/2024 14:31 03/26/2024 ADDENDUM STATUS: COMPLETED Records received from [place], sent to File room /farzad/ PIETRO Lemons [employer] Manager Signed: 03/26/2024 08:57 Receipt Acknowledged By: 03/26/2024 09:42 /kerry LYLE MD, MS STAFF, PULMONARY MEDICINE 03/31/2024 ADDENDUM STATUS: COMPLETED Still awaiting [facility] chest CT for assessment of any progression. /kerry LYLE MD, MS STAFF, PULMONARY MEDICINE Signed: 03/31/2024 15:50 04/06/2024 ADDENDUM STATUS: COMPLETED Outside [facility] images still not loaded for comparisons. Will ask [facility] to follow up with file room (per [facility] note, was sent to file room 11d ago). /kerry LYLE MD, MS STAFF, PULMONARY MEDICINE Signed: 04/06/2024 09:00 Receipt Acknowledged By: 04/06/2024 12:52 /kerry Lemons [employer]ure Farm Manager 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 Patient seen and examined, AAOx4, sitting in a wheelchair, in no distress. Complains of shortness of breath on exertion, associated dry cough. Shortness of breath has progressively gotten worse for the past couple of years. Now at home on continuous oxygen 2L, pulse oximeter at home usually ~95% at rest, however if he ambulates usually drops to mid 80s. Patient unable to ambulate without oxygen as his saturation drops to low 70s. Poor functional status, as he is barely able to walk around his home and not able to go up one flight of stairs. Patient denies chest tightness, chest pain, sputum production, fever, chills, night sweats, unintentional weight loss, hemoptysis. States over the past 2 weeks he has been using Albuterol nebulizer 2-3 times daily prescribed by his PCP with some improvement in SOB and functional status. In the past, he has been taking Amiodarone for about 2 years, which he stopped in 2021 after seen a Senior Bioinformatics Specialist in [facility]. He has done CT chest, TTE and PFTs at [place] in 2021, will try to obtain those results. Allergies: AMIODARONE (Oct 10, 2023) GOLDENROD POLLEN (Oct 10, 2023) Family history: Past medical history: Computerized Problem List is the source for the followin. Atrial fibrillation ACTIVE 2. Ibarra's esophagus ACTIVE 3. Hyperlipidemia ACTIVE 4. Type 2 diabetes mellitus ACTIVE 5. Hypothyroidism ACTIVE 6. Age related macular degeneration ACTIVE 7. Benign prostatic hyperplasia ACTIVE 8. Chronic dermatitis ACTIVE 9. 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 Coronary heart disease ACTIVE 12. History of placement of stent for coronary artery ACTIVE 13. Transient cerebral ischemia ACTIVE 14. Tachycardia ACTIVE Wide complex tachycardia 15. Long-Term Current Use of Anticoagulant (SCT 335291 ACTIVE Medications: Active Outpatient Medications (including Supplies): Active Outpatient Medications Status 1) APIXABAN 5MG TAB TAKE ONE TABLET BY MOUTH EVERY 12 ACTIVE HOURS TO PREVENT STROKES Active Non-VA Medications Status 1) Non-VA ASCORBIC ACID 500MG TAB 500MG MOUTH EVERY DAY ACTIVE 2) Non-VA ATORVASTATIN CALCIUM 80MG TAB 80MG MOUTH EVERY ACTIVE DAY 3) Non-VA CHOLECALCIF 10MCG (D3-400UNIT) TAB 20MCG MOUTH ACTIVE DAILY 4) Non-VA GLIPIZIDE 10MG TAB 10MG MOUTH EVERY DAY ACTIVE 5) Non-VA LEVOTHYROXINE NA (SYNTHROID) 50MCG TAB 50MCG ACTIVE MOUTH EVERY DAY 6) Non-VA LUTEIN CAP/TAB 20 MG MOUTH DAILY ACTIVE 7) Non-VA METFORMIN HCL 500MG 24HR SA TAB 500MG MOUTH ACTIVE TWICE A DAY 8) Non-VA METOPROLOL SUCCINATE 50MG SA TAB 50MG MOUTH ACTIVE DAILY 9) Non-VA MULTIVITAMIN/MINERALS SENIOR FORMULA TAB 1 ACTIVE TABLET MOUTH DAILY 10) Non-VA NITROGLYCERIN 0.4MG SL TAB 0.4MG UNDER THE ACTIVE TONGUE EVERY 5 MINUTES FOR UP TO 3 DOSES IF NEEDED 11) Non-VA OMEPRAZOLE 20MG EC CAP 20MG MOUTH TWICE A DAY ACTIVE 12) Non-VA SOTALOL HCL 120MG TAB 120MG MOUTH TWO TIMES A ACTIVE DAY 13) Non-VA TAMSULOSIN HCL 0.4MG CAP 0.4MG MOUTH DAILY ACTIVE 14) Non-VA TRIAMCINOLONE ACETONIDE 0.1% CREAM A THIN ACTIVE LAYER TOPICALLY THREE TIMES A DAY NEEDED 15) Non-VA ZZFISH OIL 1000MG (500MG DHA/EPA) CAP 1000MG ACTIVE MOUTH DAILY 16 Total Medications MEDICATION RECONCILIATION Outpatient At this visit I have reviewed the medication list, and discussed relevant medications with the patient/surrogate. An updated patient medication list was given to the participant(s). Vitals: Blood pressure: 118/77 (03/16/2024 10:58) Pulse: 68 (03/16/2024 10:58) Respiration: 18 (03/16/2024 10:58) Temperature: 97.4 F [36.3 C] (03/16/2024 10:58) Weight: 159 lb [72.12 kg] (03/16/2024 10:58) Pulse Oximetry: 88% (03/16/2024 10:58) Physical Exam: Gen:AAOx3 Card:RRR Pulm:b/l air entry, no wheezing, no crackles Extrem: clubbed fingers, no edema Neuro: intact neuro Radiology reports: Last CXR: No Radiology exams found. Last chest CT: No Radiology exams found. CT Angiogram in last year: No data available Pet Scan: No data available PFT (03/16/24) restrictive pattern. Significant reduction diffusion capacity DLCO 3.75. TTE (July, at [facility]): LVEF 40-45%. RVSP 30 mmHg. Labs, tests and imaging results listed in pulmonary note were discussed with patient. 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 TTE to evaluate cardiac function and pulmonary hypertension. In the event of starting antifibrolytic therapy, risk and benefits discuss with patient and family. I have discussed the patient with my supervising/collaborating practitioner, Dr. Lyle, and they agree with my assessment/plan. If you have questions or urgent need to contact the pulmonary service, please refer to the presser cotton ginning-calendar. Barbara Christian MD Pulmonary and Critical Care Fellow /farzad/ BARBARA CHRISTIAN PULMONARY AND CRITICAL CARE FELLOW Signed: 03/16/2024 13:11 Receipt Acknowledged By: 03/16/2024 19:19 /farzad/ UCHE LYLE MD, MS STAFF, PULMONARY MEDICINE 03/18/2024 09:33 /es/ PIETRO STRANGE A [employer] Manager 03/24/2024 14:49 /es/ CRISTY HERNANDEZ LEAD FIELD INVESTIGATOR 03/16/2024 ADDENDUM STATUS: COMPLETED Please try to obtain results for Chest CT, TTE, PFTs and Pulmonary notes from [facility] between [id number]. /es/ BARBARA CHRISTIAN PULMONARY AND CRITICAL CARE FELLOW Signed: 03/16/2024 13:14 Receipt Acknowledged By: 03/18/2024 12:23 /es/ CRISTY HERNANDEZ LEAD FIELD INVESTIGATOR 03/16/2024 13:18 /es/ UCHE LYLE MD, MS STAFF, PULMONARY MEDICINE 03/16/2024 ADDENDUM STATUS: COMPLETED Patient would like to purchase portable home oxygen. Please assist. /farzad/ BARBARA CHRISTIAN PULMONARY AND CRITICAL CARE FELLOW Signed: 03/16/2024 13:16 Receipt Acknowledged By: 03/16/2024 13:19 /es/ UCHE LYLE MD, MS STAFF, PULMONARY MEDICINE 03/17/2024 12:43 /es/ DEBBIE GARCIA, RT RESPIRATORY THERAPIST 03/16/2024 ADDENDUM STATUS: COMPLETED was seen, examined, and discussed with fellow and I personally reviewed imaging and/or test results as documented in this note. The note above reflects our mutual assessment and plan. 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 Need to get outside records, but had ILD workup at [facility] with conclusion that ILD was due to amiodarone. says was on high-dose amiodarone for a while and then was supposed to transition to usual low-dose for AFib, but somehow ended up on ~2 years of higher dose amiodarone. If true, this would indeed increase risk of amiodarone pulmonary toxicity. Has poor functional status, with only being able to climb 1 flight of stairs. Also on chronic O2 at 2LPM. Does not recall any discussion about antifibrotics, although drug-induced lung disease should likely not be as progressive as other ILDs. Interestingly, PFTs show fairly preserved volumes, with FVC of 2.2L (75% of normal), but quite low DLCO of 18% of predicted which explains his chronic hypoxic respiratory failure, resting room air SpO2 of 88% and his O2 needs. Hard to know if this is purely from ILD or may have some cardiac component also. --> Get chest CT now (has been ~1.5 years since last one per his report). --> Will get outside [facility] CT chests, PFTs, and pulmonary clinic notes. --> Once those records are available, can decide about any further workup, next interval visit, consideration of antifibrotics, etc. 2) Pulmonary HTN Was fairly mild by echo Jul 2021 at [facility], with RVSP 30 mmHg. 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 Would not be inclined to add inhaled treprostinil given low LVEF; would also require a R heart cath which seems perhaps overly aggressive at this time. --> Repeat echocardiogram in next several months. 3) Chronic hypoxic respiratory failure Due to #1 and #2 above. [place] wants to get portable oxygen concentrator. We discussed that this isnot available on current [place] home oxygen contract. They are getting home O2 via [facility]- [facility] vendor and paying fairly low mckeon, but current POC only lasts ~30 min. --> Will ask our home O2 coordinator to reach out with options/recommendations if they wish to purchase their own POC. 4) Poor functional status Has not been through pulmonary rehab. We discussed today in clinic, but would like to complete above workup prior to NM referral. --> Consider NM in near future once above workup completed. RTC TBD pending above, but will plan to assume care of ILD longitudinally. Total time today, including personal review of medical records, imaging/test results, clinic visit, documentation, and orders: >60 minutes. /farzad/ UCHE LYLE MD, MS STAFF, PULMONARY MEDICINE Signed: 03/16/2024 18:51 03/18/2024 ADDENDUM STATUS: COMPLETED Records requested from [place] /farzad/ PIETRO Lemons [employer] Farm Manager Signed: 03/18/2024 14:[address] [facility] Mar 16, 2024 01:15 PM ADDENDUM: LOCAL TITLE: Addendum STANDARD TITLE: ADDENDUM DATE OF NOTE: MAR 16, 2024@13:15:18 ENTRY DATE: MAR 16, 2024@13:15:20 AUTHOR: BARBARA CHRISTIAN EXP COSIGNER: URGENCY: STATUS: COMPLETED Patient would like to purchase portable home oxygen. Please assist. 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 Patient seen and examined, AAOx4, sitting in a wheelchair, in no distress. Complains of shortness of breath on exertion, associated dry cough. Shortness of breath has progressively gotten worse for the past couple of years. Now at home on continuous oxygen 2L, pulse oximeter at home usually ~95% at rest, however if he ambulates usually drops to mid 80s. Patient unable to ambulate without oxygen as his saturation drops to low 70s. Poor functional status, as he is barely able to walk around his home and not able to go up one flight of stairs. Patient denies chest tightness, chest pain, sputum production, fever, chills, night sweats, unintentional weight loss, hemoptysis. States over the past 2 weeks he has been using Albuterol nebulizer 2-3 times daily prescribed by his PCP with some improvement in SOB and functional status. In the past, he has been taking Amiodarone for about 2 years, which he stopped in 2021 after seen a Senior Bioinformatics Specialist in [facility]. He has done CT chest, TTE and PFTs at [place] in 2021, will try to obtain those results. Allergies: AMIODARONE (Oct 10, 2023) GOLDENROD POLLEN (Oct 10, 2023) Family history: Past medical history: Computerized Problem List is the source for the followin. Atrial fibrillation ACTIVE 2. Ibarra's esophagus ACTIVE 3. Hyperlipidemia ACTIVE 4. Type 2 diabetes mellitus ACTIVE 5. Hypothyroidism ACTIVE 6. Age related macular degeneration ACTIVE 7. Benign prostatic hyperplasia ACTIVE 8. Chronic dermatitis ACTIVE 9. 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 Coronary heart disease ACTIVE 12. History of placement of stent for coronary artery ACTIVE 13. Transient cerebral ischemia ACTIVE 14. Tachycardia ACTIVE Wide complex tachycardia 15. Long-Term Current Use of Anticoagulant ([facility] [id number] ACTIVE Medications: Active Outpatient Medications (including Supplies): Active Outpatient Medications Status 1) APIXABAN 5MG TAB TAKE ONE TABLET BY MOUTH EVERY 12 ACTIVE HOURS TO PREVENT STROKES Active Non-VA Medications Status 1) Non-VA ASCORBIC ACID 500MG TAB 500MG MOUTH EVERY DAY ACTIVE 2) Non-VA ATORVASTATIN CALCIUM 80MG TAB 80MG MOUTH EVERY ACTIVE DAY 3) Non-VA CHOLECALCIF 10MCG (D3-400UNIT) TAB 20MCG MOUTH ACTIVE DAILY 4) Non-VA GLIPIZIDE 10MG TAB 10MG MOUTH EVERY DAY ACTIVE 5) Non-VA LEVOTHYROXINE NA (SYNTHROID) 50MCG TAB 50MCG ACTIVE MOUTH EVERY DAY 6) Non-VA LUTEIN CAP/TAB 20 MG MOUTH DAILY ACTIVE 7) Non-VA METFORMIN HCL 500MG 24HR SA TAB 500MG MOUTH ACTIVE TWICE A DAY 8) Non-VA METOPROLOL SUCCINATE 50MG SA TAB 50MG MOUTH ACTIVE DAILY 9) Non-VA MULTIVITAMIN/MINERALS SENIOR FORMULA TAB 1 ACTIVE TABLET MOUTH DAILY 10) Non-VA NITROGLYCERIN 0.4MG SL TAB 0.4MG UNDER THE ACTIVE TONGUE EVERY 5 MINUTES FOR UP TO 3 DOSES IF NEEDED 11) Non-VA OMEPRAZOLE 20MG EC CAP 20MG MOUTH TWICE A DAY ACTIVE 12) Non-VA SOTALOL HCL 120MG TAB 120MG MOUTH TWO TIMES A ACTIVE DAY 13) Non-VA TAMSULOSIN HCL 0.4MG CAP 0.4MG MOUTH DAILY ACTIVE 14) Non-VA TRIAMCINOLONE ACETONIDE 0.1% CREAM A THIN ACTIVE LAYER TOPICALLY THREE TIMES A DAY NEEDED 15) Non-VA ZZFISH OIL 1000MG (500MG DHA/EPA) CAP 1000MG ACTIVE MOUTH DAILY 16 Total Medications MEDICATION RECONCILIATION Outpatient At this visit I have reviewed the medication list, and discussed relevant medications with the patient/surrogate. An updated patient medication list was given to the participant(s). Vitals: Blood pressure: 118/77 (03/16/2024 10:58) Pulse: 68 (03/16/2024 10:58) Respiration: 18 (03/16/2024 10:58) Temperature: 97.4 F [36.3 C] (03/16/2024 10:58) Weight: 159 lb [72.12 kg] (03/16/2024 10:58) Pulse Oximetry: 88% (03/16/2024 10:58) Physical Exam: Gen:AAOx3 Card:RRR Pulm:b/l air entry, no wheezing, no crackles Extrem: clubbed fingers, no edema Neuro: intact neuro Radiology reports: Last CXR: No Radiology exams found. Last chest CT: No Radiology exams found. CT Angiogram in last year: No data available Pet Scan: No data available PFT (03/16/24) restrictive pattern. Significant reduction diffusion capacity DLCO 3.75. TTE (July, at [facility]): LVEF 40-45%. RVSP 30 mmHg. Labs, tests and imaging results listed in pulmonary note were discussed with patient. 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 TTE to evaluate cardiac function and pulmonary hypertension. In the event of starting antifibrolytic therapy, risk and benefits discuss with patient and family. I have discussed the patient with my supervising/collaborating practitioner, Dr. Lyle, and they agree with my assessment/plan. If you have questions or urgent need to contact the pulmonary service, please refer to the presser cotton ginning-calendar. Barbara Christian MD Pulmonary and Critical Care Fellow /farzad/ BARBARA CHRISTIAN PULMONARY AND CRITICAL CARE FELLOW Signed: 03/16/2024 13:11 Receipt Acknowledged By: 03/16/2024 19:19 /es/ UCHE LYLE MD, MS STAFF, PULMONARY MEDICINE * AWAITING SIGNATURE * PIETRO LYLES * AWAITING SIGNATURE * CRISTY HERNANDEZ 03/16/2024 ADDENDUM STATUS: COMPLETED Please try to obtain results for Chest CT, TTE, PFTs and Pulmonary notes from [facility] between [phone]. /farzad/ BARBARA CHRISTIAN PULMONARY AND CRITICAL CARE FELLOW Signed: 03/16/2024 13:14 Receipt Acknowledged By: * AWAITING SIGNATURE * CRISTY HERNANDEZ 03/16/2024 13:18 /farzad/ UCHE LYLE MD, MS STAFF, PULMONARY MEDICINE 03/16/2024 ADDENDUM STATUS: COMPLETED was seen, examined, and discussed with fellow and I personally reviewed imaging and/or test results as documented in this note. The note above reflects our mutual assessment and plan. 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 Need to get outside records, but had ILD workup at [facility] with conclusion that ILD was due to amiodarone. says was on high-dose amiodarone for a while and then was supposed to transition to usual low-dose for AFib, but somehow ended up on ~2 years of higher dose amiodarone. If true, this would indeed increase risk of amiodarone pulmonary toxicity. Has poor functional status, with only being able to climb 1 flight of stairs. Also on chronic O2 at 2LPM. Does not recall any discussion about antifibrotics, although drug-induced lung disease should likely not be as progressive as other ILDs. Interestingly, PFTs show fairly preserved volumes, with FVC of 2.2L (75% of normal), but quite low DLCO of 18% of predicted which explains his chronic hypoxic respiratory failure, resting room air SpO2 of 88% and his O2 needs. Hard to know if this is purely from ILD or may have some cardiac component also. --> Get chest CT now (has been ~1.5 years since last one per his report). --> Will get outside [facility] CT chests, PFTs, and pulmonary clinic notes. --> Once those records are available, can decide about any further workup, next interval visit, consideration of antifibrotics, etc. 2) Pulmonary HTN Was fairly mild by echo Jul 2021 at [facility], with RVSP 30 mmHg. 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 Would not be inclined to add inhaled treprostinil given low LVEF; would also require a R heart cath which seems perhaps overly aggressive at this time. --> Repeat echocardiogram in next several months. 3) Chronic hypoxic respiratory failure Due to #1 and #2 above. [place] wants to get portable oxygen concentrator. We discussed that this isnot available on current [place] home oxygen contract. They are getting home O2 via [facility] vendor and paying fairly low [place], but current POC only lasts ~30 min. --> Will ask our home O2 coordinator to reach out with options/recommendations if they wish to purchase their own POC. 4) Poor functional status Has not been through pulmonary rehab. We discussed today in clinic, but would like to complete above workup prior to NM referral. --> Consider NM in near future once above workup completed. RTC TBD pending above, but will plan to assume care of ILD longitudinally. Total time today, including personal review of medical records, imaging/test results, clinic visit, documentation, and orders: >60 minutes. /farzad/ UCHE LYLE MD, MS STAFF, PULMONARY MEDICINE Signed: 03/16/2024 18:[address] Mar 16, 2024 01:12 PM ADDENDUM: LOCAL TITLE: Addendum STANDARD TITLE: ADDENDUM DATE OF NOTE: MAR 16, 2024@13:12:17 ENTRY DATE: MAR 16, 2024@13:12:19 AUTHOR: BARBARA CHRISTIAN EXP COSIGNER: URGENCY: STATUS: COMPLETED Please try to obtain results for Chest CT, TTE, PFTs and Pulmonary notes from [facility] between [id number]. 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 Patient seen and examined, AAOx4, sitting in a wheelchair, in no distress. Complains of shortness of breath on exertion, associated dry cough. Shortness of breath has progressively gotten worse for the past couple of years. Now at home on continuous oxygen 2L, pulse oximeter at home usually ~95% at rest, however if he ambulates usually drops to mid 80s. Patient unable to ambulate without oxygen as his saturation drops to low 70s. Poor functional status, as he is barely able to walk around his home and not able to go up one flight of stairs. Patient denies chest tightness, chest pain, sputum production, fever, chills, night sweats, unintentional weight loss, hemoptysis. States over the past 2 weeks he has been using Albuterol nebulizer 2-3 times daily prescribed by his PCP with some improvement in SOB and functional status. In the past, he has been taking Amiodarone for about 2 years, which he stopped in 2021 after seen a Senior Bioinformatics Specialist in [facility]. He has done CT chest, TTE and PFTs at [place] in 2021, will try to obtain those results. Allergies: AMIODARONE (Oct 10, 2023) GOLDENROD POLLEN (Oct 10, 2023) Family history: Past medical history: Computerized Problem List is the source for the followin. Atrial fibrillation ACTIVE 2. Ibarra's esophagus ACTIVE 3. Hyperlipidemia ACTIVE 4. Type 2 diabetes mellitus ACTIVE 5. Hypothyroidism ACTIVE 6. Age related macular degeneration ACTIVE 7. Benign prostatic hyperplasia ACTIVE 8. Chronic dermatitis ACTIVE 9. 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 Coronary heart disease ACTIVE 12. History of placement of stent for coronary artery ACTIVE 13. Transient cerebral ischemia ACTIVE 14. Tachycardia ACTIVE Wide complex tachycardia 15. Long-Term Current Use of Anticoagulant (SCT [id number] ACTIVE Medications: Active Outpatient Medications (including Supplies): Active Outpatient Medications Status 1) APIXABAN 5MG TAB TAKE ONE TABLET BY MOUTH EVERY 12 ACTIVE HOURS TO PREVENT STROKES Active Non-VA Medications Status 1) Non-VA ASCORBIC ACID 500MG TAB 500MG MOUTH EVERY DAY ACTIVE 2) Non-VA ATORVASTATIN CALCIUM 80MG TAB 80MG MOUTH EVERY ACTIVE DAY 3) Non-VA CHOLECALCIF 10MCG (D3-400UNIT) TAB 20MCG MOUTH ACTIVE DAILY 4) Non-VA GLIPIZIDE 10MG TAB 10MG MOUTH EVERY DAY ACTIVE 5) Non-VA LEVOTHYROXINE NA (SYNTHROID) 50MCG TAB 50MCG ACTIVE MOUTH EVERY DAY 6) Non-VA LUTEIN CAP/TAB 20 MG MOUTH DAILY ACTIVE 7) Non-VA METFORMIN HCL 500MG 24HR SA TAB 500MG MOUTH ACTIVE TWICE A DAY 8) Non-VA METOPROLOL SUCCINATE 50MG SA TAB 50MG MOUTH ACTIVE DAILY 9) Non-VA MULTIVITAMIN/MINERALS SENIOR FORMULA TAB 1 ACTIVE TABLET MOUTH DAILY 10) Non-VA NITROGLYCERIN 0.4MG SL TAB 0.4MG UNDER THE ACTIVE TONGUE EVERY 5 MINUTES FOR UP TO 3 DOSES IF NEEDED 11) Non-VA OMEPRAZOLE 20MG EC CAP 20MG MOUTH TWICE A DAY ACTIVE 12) Non-VA SOTALOL HCL 120MG TAB 120MG MOUTH TWO TIMES A ACTIVE DAY 13) Non-VA TAMSULOSIN HCL 0.4MG CAP 0.4MG MOUTH DAILY ACTIVE 14) Non-VA TRIAMCINOLONE ACETONIDE 0.1% CREAM A THIN ACTIVE LAYER TOPICALLY THREE TIMES A DAY NEEDED 15) Non-VA ZZFISH OIL 1000MG (500MG DHA/EPA) CAP 1000MG ACTIVE MOUTH DAILY 16 Total Medications MEDICATION RECONCILIATION Outpatient At this visit I have reviewed the medication list, and discussed relevant medications with the patient/surrogate. An updated patient medication list was given to the participant(s). Vitals: Blood pressure: 118/77 (03/16/2024 10:58) Pulse: 68 (03/16/2024 10:58) Respiration: 18 (03/16/2024 10:58) Temperature: 97.4 F [36.3 C] (03/16/2024 10:58) Weight: 159 lb [72.12 kg] (03/16/2024 10:58) Pulse Oximetry: 88% (03/16/2024 10:58) Physical Exam: Gen:AAOx3 Card:RRR Pulm:b/l air entry, no wheezing, no crackles Extrem: clubbed fingers, no edema Neuro: intact neuro Radiology reports: Last CXR: No Radiology exams found. Last chest CT: No Radiology exams found. CT Angiogram in last year: No data available Pet Scan: No data available PFT (03/16/24) restrictive pattern. Significant reduction diffusion capacity DLCO 3.75. TTE (July, at [facility]): LVEF 40-45%. RVSP 30 mmHg. Labs, tests and imaging results listed in pulmonary note were discussed with patient. 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 TTE to evaluate cardiac function and pulmonary hypertension. In the event of starting antifibrolytic therapy, risk and benefits discuss with patient and family. I have discussed the patient with my supervising/collaborating practitioner, Dr. Lyle, and they agree with my assessment/plan. If you have questions or urgent need to contact the pulmonary service, please refer to the presser cotton ginning-calendar. Barbara Christian MD Pulmonary and Critical Care Fellow /farzad/ BARBARA [facility] FELLOW Signed: 03/16/2024 13:11 Receipt Acknowledged By: 03/16/2024 19:19 /farzad/ UCHE LYLE MD, MS STAFF, PULMONARY MEDICINE 03/18/2024 09:33 /farzad/ PIETRO [employer]ons [employer] Farm Manager * AWAITING SIGNATURE * CRISTY HERNANDEZ 03/16/2024 ADDENDUM STATUS: COMPLETED Patient would like to purchase portable home oxygen. Please assist. /farzad/ BARBARA [facility] FELLOW Signed: 03/16/2024 13:16 Receipt Acknowledged By: 03/16/2024 13:19 /farzad/ UCHE LYLE MD, MS STAFF, PULMONARY MEDICINE 03/17/2024 12:43 /farzad/ DEBBIE GARCIA, RT RESPIRATORY THERAPIST 03/16/2024 ADDENDUM STATUS: COMPLETED [place] was seen, examined, and discussed with fellow and I personally reviewed imaging and/or test results as documented in this note. The note above reflects our mutual assessment and plan. 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 Need to get outside records, but had ILD workup at [facility] with conclusion that ILD was due to amiodarone. says was on high-dose amiodarone for a while and then was supposed to transition to usual low-dose for AFib, but somehow ended up on ~2 years of higher dose amiodarone. If true, this would indeed increase risk of amiodarone pulmonary toxicity. Has poor functional status, with only being able to climb 1 flight of stairs. Also on chronic O2 at 2LPM. Does not recall any discussion about antifibrotics, although drug-induced lung disease should likely not be as progressive as other ILDs. Interestingly, PFTs show fairly preserved volumes, with FVC of 2.2L (75% of normal), but quite low DLCO of 18% of predicted which explains his chronic hypoxic respiratory failure, resting room air SpO2 of 88% and his O2 needs. Hard to know if this is purely from ILD or may have some cardiac component also. --> Get chest CT now (has been ~1.5 years since last one per his report). --> Will get outside [facility] CT chests, PFTs, and pulmonary clinic notes. --> Once those records are available, can decide about any further workup, next interval visit, consideration of antifibrotics, etc. 2) Pulmonary HTN Was fairly mild by echo Jul 2021 at [facility], with RVSP 30 mmHg. 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 Would not be inclined to add inhaled treprostinil given low LVEF; would also require a R heart cath which seems perhaps overly aggressive at this time. --> Repeat echocardiogram in next several months. 3) Chronic hypoxic respiratory failure Due to #1 and #2 above. [place] wants to get portable oxygen concentrator. We discussed that this isnot available on current [place] home oxygen contract. They are getting home O2 via [facility]- [facility] vendor and paying fairly low mckeon, but current POC only lasts ~30 min. --> Will ask our home O2 coordinator to reach out with options/recommendations if they wish to purchase their own POC. 4) Poor functional status Has not been through pulmonary rehab. We discussed today in clinic, but would like to complete above workup prior to NM referral. --> Consider NM in near future once above workup completed. RTC TBD pending above, but will plan to assume care of ILD longitudinally. Total time today, including personal review of medical records, imaging/test results, clinic visit, documentation, and orders: >60 minutes. /es/ UCHE LYLE MD, MS STAFF, PULMONARY MEDICINE Signed: 03/16/2024 18:[address] [facility] Mar 16, 2024 12:55 PM PULMONARY CONSULT: LOCAL TITLE: PULMONARY CONSULT STANDARD TITLE: PULMONARY CONSULT DATE OF NOTE: MAR 16, 2024@12:55 ENTRY DATE: MAR 16, 2024@12:56:05 AUTHOR: BARBARA [facility] EXP COSIGNER: URGENCY: STATUS: COMPLETED PULMONARY CONSULT Has ADDENDA History of Present Illness and Pulmonary Review of Systems: The patient is a(n) 84 year old MALE of Barrets Esophagus on PPI, Smoking History with 12 pack years, ELISE on CPAP nightly, Interstitial lung disease on home O2 2L, Atrial Fibrillation (previously on Amiodarone for about 2 years)on AC here with us for evaluation of dyspnea for about a couple of years however got worse in October, after a viral infection. Patient seen and examined, AAOx4, sitting in a wheelchair, in no distress. Complains of shortness of breath on exertion, associated dry cough. Shortness of breath has progressively gotten worse for the past couple of years. Now at home on continuous oxygen 2L, pulse oximeter at home usually ~95% at rest, however if he ambulates usually drops to mid 80s. Patient unable to ambulate without oxygen as his saturation drops to low 70s. Poor functional status, as he is barely able to walk around his home and not able to go up one flight of stairs. Patient denies chest tightness, chest pain, sputum production, fever, chills, night sweats, unintentional weight loss, hemoptysis. States over the past 2 weeks he has been using Albuterol nebulizer 2-3 times daily prescribed by his PCP with some improvement in SOB and functional status. In the past, he has been taking Amiodarone for about 2 years, which he stopped in 2021 after seen a Senior Bioinformatics Specialist in [facility]. He has done CT chest, TTE and PFTs at [place] in 2021, will try to obtain those results. Allergies: AMIODARONE (Oct 10, 2023) GOLDENROD POLLEN (Oct 10, 2023) Family history: Past medical history: Computerized Problem List is the source for the followin. Atrial fibrillation ACTIVE 2. Ibarra's esophagus ACTIVE 3. Hyperlipidemia ACTIVE 4. Type 2 diabetes mellitus ACTIVE 5. Hypothyroidism ACTIVE 6. Age related macular degeneration ACTIVE 7. Benign prostatic hyperplasia ACTIVE 8. Chronic dermatitis ACTIVE 9. 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 Coronary heart disease ACTIVE 12. History of placement of stent for coronary artery ACTIVE 13. Transient cerebral ischemia ACTIVE 14. Tachycardia ACTIVE Wide complex tachycardia 15. Long-Term Current Use of Anticoagulant ([facility] [id number] ACTIVE Medications: Active Outpatient Medications (including Supplies): Active Outpatient Medications Status 1) APIXABAN 5MG TAB TAKE ONE TABLET BY MOUTH EVERY 12 ACTIVE HOURS TO PREVENT STROKES Active Non-VA Medications Status 1) Non-VA ASCORBIC ACID 500MG TAB 500MG MOUTH EVERY DAY ACTIVE 2) Non-VA ATORVASTATIN CALCIUM 80MG TAB 80MG MOUTH EVERY ACTIVE DAY 3) Non-VA CHOLECALCIF 10MCG (D3-400UNIT) TAB 20MCG MOUTH ACTIVE DAILY 4) Non-VA GLIPIZIDE 10MG TAB 10MG MOUTH EVERY DAY ACTIVE 5) Non-VA LEVOTHYROXINE NA (SYNTHROID) 50MCG TAB 50MCG ACTIVE MOUTH EVERY DAY 6) Non-VA LUTEIN CAP/TAB 20 MG MOUTH DAILY ACTIVE 7) Non-VA METFORMIN HCL 500MG 24HR SA TAB 500MG MOUTH ACTIVE TWICE A DAY 8) Non-VA METOPROLOL SUCCINATE 50MG SA TAB 50MG MOUTH ACTIVE DAILY 9) Non-VA MULTIVITAMIN/MINERALS SENIOR FORMULA TAB 1 ACTIVE TABLET MOUTH DAILY 10) Non-VA NITROGLYCERIN 0.4MG SL TAB 0.4MG UNDER THE ACTIVE TONGUE EVERY 5 MINUTES FOR UP TO 3 DOSES IF NEEDED 11) Non-VA OMEPRAZOLE 20MG EC CAP 20MG MOUTH TWICE A DAY ACTIVE 12) Non-VA SOTALOL HCL 120MG TAB 120MG MOUTH TWO TIMES A ACTIVE DAY 13) Non-VA TAMSULOSIN HCL 0.4MG CAP 0.4MG MOUTH DAILY ACTIVE 14) Non-VA TRIAMCINOLONE ACETONIDE 0.1% CREAM A THIN ACTIVE LAYER TOPICALLY THREE TIMES A DAY NEEDED 15) Non-VA ZZFISH OIL 1000MG (500MG DHA/EPA) CAP 1000MG ACTIVE MOUTH DAILY 16 Total Medications MEDICATION RECONCILIATION Outpatient At this visit I have reviewed the medication list, and discussed relevant medications with the patient/surrogate. An updated patient medication list was given to the participant(s). Vitals: Blood pressure: 118/77 (03/16/2024 10:58) Pulse: 68 (03/16/2024 10:58) Respiration: 18 (03/16/2024 10:58) Temperature: 97.4 F [36.3 C] (03/16/2024 10:58) Weight: 159 lb [72.12 kg] (03/16/2024 10:58) Pulse Oximetry: 88% (03/16/2024 10:58) Physical Exam: Gen:AAOx3 Card:RRR Pulm:b/l air entry, no wheezing, no crackles Extrem: clubbed fingers, no edema Neuro: intact neuro Radiology reports: Last CXR: No Radiology exams found. Last chest CT: No Radiology exams found. CT Angiogram in last year: No data available Pet Scan: No data available PFT (03/16/24) restrictive pattern. Significant reduction diffusion capacity DLCO 3.75. TTE (July, at [facility]): LVEF 40-45%. RVSP 30 mmHg. Labs, tests and imaging results listed in pulmonary note were discussed with patient. 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 TTE to evaluate cardiac function and pulmonary hypertension. In the event of starting antifibrolytic therapy, risk and benefits discuss with patient and family. I have discussed the patient with my supervising/collaborating practitioner, Dr. Lyle, and they agree with my assessment/plan. If you have questions or urgent need to contact the pulmonary service, please refer to the presser cotton ginning-calendar. Barbara Christian MD Pulmonary and Critical Care Fellow /farzad/ BARBARA [facility] FELLOW Signed: 03/16/2024 13:11 Receipt Acknowledged By: 03/16/2024 19:19 /farzad/ UCHE LYLE MD, MS STAFF, PULMONARY MEDICINE 03/18/2024 09:33 /es/ PIETRO [employer] Farm Manager 03/24/2024 14:49 /farzad/ CRISTY HERNANDEZ LEAD FIELD INVESTIGATOR 03/16/2024 ADDENDUM STATUS: COMPLETED Please try to obtain results for Chest CT, TTE, PFTs and Pulmonary notes from [facility] between [id number]. /farzad/ BARBARA [facility] FELLOW Signed: 03/16/2024 13:14 Receipt Acknowledged By: 03/18/2024 12:23 /es/ CRISTY HERNANDEZ LEAD FIELD INVESTIGATOR 03/16/2024 13:18 /farzad/ UCHE LYLE MD, MS STAFF, PULMONARY MEDICINE 03/16/2024 ADDENDUM STATUS: COMPLETED Patient would like to purchase portable home oxygen. Please assist. /farzad/ BARBARA [facility] FELLOW Signed: 03/16/2024 13:16 Receipt Acknowledged By: 03/16/2024 13:19 /farzad/ UCHE LYLE MD, MS STAFF, PULMONARY MEDICINE 03/17/2024 12:43 /es/ DEBBIE GARCIA, RT RESPIRATORY THERAPIST 03/16/2024 ADDENDUM STATUS: COMPLETED [place] was seen, examined, and discussed with fellow and I personally reviewed imaging and/or test results as documented in this note. The note above reflects our mutual assessment and plan. 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 Need to get outside records, but had ILD workup at [facility] with conclusion that ILD was due to amiodarone. says was on high-dose amiodarone for a while and then was supposed to transition to usual low-dose for AFib, but somehow ended up on ~2 years of higher dose amiodarone. If true, this would indeed increase risk of amiodarone pulmonary toxicity. Has poor functional status, with only being able to climb 1 flight of stairs. Also on chronic O2 at 2LPM. Does not recall any discussion about antifibrotics, although drug-induced lung disease should likely not be as progressive as other ILDs. Interestingly, PFTs show fairly preserved volumes, with FVC of 2.2L (75% of normal), but quite low DLCO of 18% of predicted which explains his chronic hypoxic respiratory failure, resting room air SpO2 of 88% and his O2 needs. Hard to know if this is purely from ILD or may have some cardiac component also. --> Get chest CT now (has been ~1.5 years since last one per his report). --> Will get outside [facility] CT chests, PFTs, and pulmonary clinic notes. --> Once those records are available, can decide about any further workup, next interval visit, consideration of antifibrotics, etc. 2) Pulmonary HTN Was fairly mild by echo Jul 2021 at [facility], with RVSP 30 mmHg. 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 Would not be inclined to add inhaled treprostinil given low LVEF; would also require a R heart cath which seems perhaps overly aggressive at this time. --> Repeat echocardiogram in next several months. 3) Chronic hypoxic respiratory failure Due to #1 and #2 above. wants to get portable oxygen concentrator. We discussed that this isnot available on current [place] home oxygen contract. They are getting home O2 via [facility]- [facility] vendor and paying fairly low mckeon, but current POC only lasts ~30 min. --> Will ask our home O2 coordinator to reach out with options/recommendations if they wish to purchase their own POC. 4) Poor functional status Has not been through pulmonary rehab. We discussed today in clinic, but would like to complete above workup prior to NM referral. --> Consider NM in near future once above workup completed. RTC TBD pending above, but will plan to assume care of ILD longitudinally. Total time today, including personal review of medical records, imaging/test results, clinic visit, documentation, and orders: >60 minutes. /kerry LYLE MD, MS STAFF, PULMONARY MEDICINE Signed: 03/16/2024 18:51 03/18/2024 ADDENDUM STATUS: COMPLETED Records requested from [place] /kerry [employer] Farm Manager Signed: 03/18/2024 14:31 03/26/2024 ADDENDUM STATUS: COMPLETED Records received from [place], sent to File room /farzad/ PIETRO [employer]ons [employer] Farm Manager Signed: 03/26/2024 08:57 Receipt Acknowledged By: 03/26/2024 09:42 /kerry LYLE MD, MS STAFF, PULMONARY MEDICINE 03/31/2024 ADDENDUM STATUS: COMPLETED Alerting Dr. Lyle to CT chest 03/30/2024 (ordered by Dr. Christian in [facility]): Impression: 1. Subpleural reticular markings, bronchiectatic changes, [...] mm. 7. Suspect layering gallstones without cholecystitis. /farzad/ YESENIA TEMPLE MD PULMONARY AND CRITICAL CARE STAFF PHYSICIAN Signed: 03/31/2024 13:16 Receipt Acknowledged By: 04/14/2024 12:13 /kerry LYLE MD, MS STAFF, PULMONARY MEDICINE 03/31/2024 ADDENDUM STATUS: COMPLETED Still awaiting [facility] chest CT for assessment of any progression. /kerry LYLE MD, MS STAFF, PULMONARY MEDICINE Signed: 03/31/2024 15:50 04/06/2024 ADDENDUM STATUS: COMPLETED Outside [facility] images still not loaded for comparisons. Will ask [facility] to follow up with file room (per [facility] note, was sent to file room 11d ago). /kerry LYLE MD, MS STAFF, PULMONARY MEDICINE Signed: 04/06/2024 09:00 Receipt Acknowledged By: 04/06/2024 12:52 /es/ PIETRO [employer] Manager 04/14/2024 ADDENDUM STATUS: COMPLETED Was able to contact today; see separate note re: plan to initiate pirfenidone due to progressive ILD changes when compared to prior chest CTs. --> Will hand off to primary care the following incidental findings: 4. Severe coronary artery calcifications and mild cardiomegaly. 5. Small to moderate hiatal hernia. 6. Suspect hemorrhagic/proteinaceous cyst partially exophytic from the right kidney measuring 8 mm. 7. Suspect layering gallstones without cholecystitis. /es/ UCHE LYLE MD, MS STAFF, PULMONARY MEDICINE Signed: 04/14/2024 12:15 Receipt Acknowledged By: * AWAITING SIGNATURE * LISSETH GOMEZ,[facility]
--- OUTSIDE RECORDS SUMMARY | 2024-04-20 12:54 | XMS_ITS | Encounter Summary ---
Author Name [facility] [place] [facility] [place] Address [address] [place] [id number] Care Team Providers Care Concrete Bucket Hooker Name Role Phone LISSETH GOMEZ Primary Care Provider [facility] Insurance Providers: All historical and current [...] MEDICARE ADVANTAGE MCR (WNR) Jul 22, 2022 [id number] OMAR CHOI PATIENT Selected Encounter This section includes the information on record at [place] for the Encounter. Date/Time Encounter Type Encounter Description Reason Provider Source Apr 14, 2024 12:15 PM QNHP OL DIG ASSMT&MGMT 5-10 CLINICAL PHARMACY ICD-10-CM J84.9 Interstitial pulmonary disease, unspecified KATYA,MAR IE K IHE Encounter Template Text not used by [place] Assessments - Encounter Diagnoses This section includes the primary and secondary diagnoses documented for the Encounter. Date/Time Primary/Secondary Diagnosis Diagnosis Name Provider Source Apr 14, 2024 12:19 PM PRIMARY Interstitial pulmonary disease, unspecified KATYA,MAR IE K [facility] Plan of Treatment: Future Appointments (+ 6 months) and Future Tests (+/- 45 days) The Plan of Treatment section includes future care activities for the patient from all [facility]. This section includes future appointments and future orders which are active, pending or scheduled. Future Appointments This section includes appointments that were scheduled to occur 6 months from the date of the Encounter, up to a maximum of 20 appointments. The data comes from all [facility]. Appointment Date/Time Appointment Type Appointme nt Facility Name Jul 30, 2024 11:20 AM AMBULATORY - MEDICINE [facility] Jul 30, 2024 02:00 PM AMBULATORY - MEDICINE [facility] Active, Pending, and Scheduled Orders This section includes a listing of several types of active, pending, and scheduled orders, including clinic medications orders, diagnostic test orders, procedure orders and consult orders; where the start date of the order is 45 days before the date of the Encounter or 45 days after the date of theEncounter. The data comes from all [facility]. Test Date/Time Test Type Test Details Facility Name Mar 16, 2024 11:47 AM Consult Order COMMUNITY CARE-ECHOCARDIOGRAPHY Cons Change Control Analyst's Choice [facility] Social History: Smoking Status (Most current) and Tobacco Use (All prior to encounter date) This section includes the most current, and the historical, smoking and tobacco- related health factors from the [place] facility where the Encounter took place. Current Smoking Status This section includes the most current smoking, or tobacco-related health factor, from the [place] facility where the Encounter took place. Date/Time Current Smoking Status Comment Facil ity Oct 10, 2023 09:00 AM [place]-TOBACCO FORMER USER [facility] Tobacco Use History This section includes a history of the smoking, or tobacco-related health factors, that were collected on or before the date of the Encounter. The data comes from the [place] facility where the Encounter took place. Date/Time Smoking Status/Tobacco Use Comment F acility Oct 10, 2023 09:00 AM [place]-TOBACCO QUIT 15 YRS OR MORE [facility] Radiology Reports: +/- 30 days of the [...] the Encounter. The data comes from all [facility]. Date/Time Radiology Report Provider Source Mar 30, 2024 08:[address] (C) CHEST (P): TORY CHOI [id number] -[id number] M Exm Date: MAR 30, 2024@08:46 Req Phys: BARBARA CHRISTIAN Pat Loc: [facility] PULM MATIASAL (Req'g Loc) Img Loc: CT IMAGING Service: [place] [address] (Case [id number] COMPLETE) CT (C) CHEST W/O CONTRAST (CT Detailed) CPT:19105 Reason for Study: evaluate for ILD Clinical [...] data available for: CREATININE .CREAT EGFR(CKD-EPI) Allergies: ([place] only) AMIODARONE (Oct 10, 2023) GOLDENROD POLLEN (Oct 10, 2023) Report Status: Verified Date Reported: MAR 30, 2024 Date Verified: MAR 30, 2024 Clinical Science Liaison E-Sig:/ES/ARELY DRAKE MD Report: CT CHEST WITHOUT [...] the right lower lobe with associated honeycombing. Rvjn-nf-dejtzfay emphysematous changes. MEDIASTINUM: Thyroid unremarkable. Atherosclerotic thoracic [...] Primary Interpreting Staff: ARELY DRAKE MD, RADIOLOGIST (Clinical Science Liaison) /ARELY [facility] Encounter Notes: All associated encounter notes This section contains the clinical notes associated to the Encounter. Date/Time Encounter Note(s) Provider Source Apr 14, 2024 12:15 PM PHARMACY CONSULT: LOCAL TITLE: PHARMACY PRIOR AUTHORIZATION APPROVED CONSULT STANDARD TITLE: PHARMACY CONSULT DATE OF NOTE: APR 14, 2024@12:15 ENTRY DATE: APR 14, 2024@12:15:41 AUTHOR: JERSON ALDANA COSIGNER: URGENCY: STATUS: COMPLETED The medical record has been reviewed with regard to this prior authorization drug request. Medication requested: PIRFENIDONE 267MG ORAL CAP Medication indication: FIBROSING LUNG DISEASE Medical history relevant to this request: Progressive fibrosing interstitial lung disease No previous therapies; nintedanib contraindiated due to apixaban use. The request is approved - A documented contraindication exists to the preferred formulary alternative(s) Comment: NINTEDANIB DUE TO POTENTIAL INTERACTION WITH APIXABAN Active Outpatient Medications (including Supplies): APIXABAN 5MG TAB TAKE ONE TABLET BY MOUTH EVERY 12 HOURS ACTIVE TO PREVENT STROKES PIRFENIDONE 267MG ORAL CAP TAKE ONE CAPSULE BY MOUTH THREE PENDING TIMES A DAY FOR 7 DAYS, THEN TAKE TWO CAPSULES THREE TIMES A DAY FOR 7 DAYS, THEN TAKE THREE CAPSULES THREE TIMES A DAY Non-VA ASCORBIC ACID 500MG TAB 500MG MOUTH EVERY DAY ACTIVE Non-VA ATORVASTATIN CALCIUM 80MG TAB 80MG MOUTH EVERY DAY ACTIVE Non-VA CHOLECALCIF 10MCG (D3-400UNIT) TAB 20MCG MOUTH ACTIVE DAILY Non-VA FISH OIL 1000MG (500MG DHA/EPA) CAP 1000MG MOUTH ACTIVE DAILY Non-VA GLIPIZIDE 10MG TAB 10MG MOUTH EVERY DAY ACTIVE Non-VA LEVOTHYROXINE NA (SYNTHROID) 50MCG TAB 50MCG MOUTH ACTIVE EVERY DAY Non-VA LUTEIN CAP/TAB 20 MG MOUTH DAILY ACTIVE Non-VA METFORMIN HCL 500MG 24HR SA TAB 500MG MOUTH TWICE A ACTIVE DAY Non-VA METOPROLOL SUCCINATE 50MG SA TAB 50MG MOUTH DAILY ACTIVE Non-VA MULTIVITAMIN/MINERALS SENIOR FORMULA TAB 1 TABLET ACTIVE MOUTH DAILY Non-VA NITROGLYCERIN 0.4MG SL TAB 0.4MG UNDER THE TONGUE ACTIVE EVERY 5 MINUTES FOR UP TO 3 DOSES IF NEEDED Non-VA OMEPRAZOLE 20MG EC CAP 20MG MOUTH TWICE A DAY ACTIVE Non-VA SOTALOL HCL 120MG TAB 120MG MOUTH TWO TIMES A DAY ACTIVE Non-VA TAMSULOSIN HCL 0.4MG CAP 0.4MG MOUTH DAILY ACTIVE Non-VA TRIAMCINOLONE ACETONIDE 0.1% CREAM A THIN LAYER ACTIVE TOPICALLY THREE TIMES A DAY NEEDED /farzad/ JERSON ALDANA Pharm.D. Signed: 04/14/2024 12:20 JERSON ALDANA [facility]
--- OUTSIDE RECORDS SUMMARY | 2024-04-20 12:54 | XMS_ITS | Encounter Summary ---
Author Name [facility] [place] Organization [place] Address [address] [place] [id number] Care Team Providers Care Flatwork Presser Name Role Phone LISSETH GOMEZ Primary Care [...] Name Patient's Relationship to Policy [place] [employer] [facility] (WNR) MEDICARE ADVANTAGE [facility] (WNR) Jul 22, 2022 [id number] OMAR CHOI PATIENT Selected Encounter This section includes the information on record at [place] for the Encounter. Date/Time Encounter Type Encounter Description Reason Provider Source Oct 10, 2023 09:00 AM OFFICE O/P [place] 60 MIN PRIMARY CARE/MEDICINE ICD-10-CM I48.91 Unspecified atrial fibrillation EVANS GOMEZ [facility] Encounter Template Text not used by [place] Assessments - Encounter Diagnoses This section includes the primary and secondary diagnoses documented for the Encounter. 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 PATRICIA,RICH [facility] Oct 25, 2023 12:49 AM SECONDARY Benign neoplasm of endocrine pancreas [facility] Oct 25, 2023 12:49 AM SECONDARY Benign prostatic hyperplasia without lower urinry tract symp EVANS GOMEZ [facility] Oct 25, 2023 12:49 AM SECONDARY Dermatitis, unspecified [facility] Oct 25, 2023 12:49 AM SECONDARY Hyperlipidemia, unspecified [facility] Oct 25, 2023 12:49 AM SECONDARY Hypothyroidism, unspecified [facility] Oct 25, 2023 12:49 AM SECONDARY Obstructive sleep apnea (adult) (pediatric) [facility] Oct 25, 2023 12:49 AM SECONDARY Presence of coronary angioplasty implant and graft [facility] Oct 25, 2023 12:49 AM SECONDARY Transient cerebral ischemic attack, unspecified [facility] Oct 25, 2023 12:49 AM SECONDARY Type 2 diabetes mellitus without complications [facility] Oct 25, 2023 12:49 AM SECONDARY Unspecified macular degeneration [facility] Plan of Treatment: Future Appointments (+ 6 months) and Future Tests (+/- 45 days) The Plan of Treatment section includes future care activities for the patient from all [facility]. This section includes future appointments and future orders which are active, pending or scheduled. Future Appointments This section includes appointments that were scheduled to occur 6 months from the date of the Encounter, up to a maximum of 20 appointments. The data comes from all [facility]. Appointment Date/Time Appointment Type Appointme nt Facility Name Mar 16, 2024 10:20 AM AMBULATORY - MEDICINE [facility] Mar 16, 2024 11:00 AM AMBULATORY - MEDICINE [facility] Mar 30, 2024 11:15 AM AMBULATORY - NONE [facility] Vital Signs: All taken on the encounter date This section contains inpatient and outpatient Vital Signs collected on the date of the Encounter. Date/Time Temperature Pulse Blood Pressure Respiratory Rate SP02 Pain Height Weight Body Mass Index Source Oct 10, 2023 09:10 AM 70 133/80 [facility] Oct 10, 2023 08:58 AM 97.4 70 165/86 16 93 0 66.5 159.7 25 [facility] Social History: Smoking Status (Most current) and Tobacco Use (All prior to encounter date) This section includes the most current, and the historical, smoking and tobacco- related health factors from the [place] facility where the Encounter took place. Current Smoking Status This section includes the most current smoking, or tobacco-related health factor, from the [place] facility where the Encounter took place. Date/Time Current Smoking Status Comment Emil herr Oct 10, 2023 09:00 AM VA-TOBACCO FORMER USER [facility] Tobacco Use History This section includes a history of the smoking, or tobacco-related health factors, that were collected on or before the date of the Encounter. The data comes from the [place] facility where the Encounter took place. Date/Time Smoking Status/Tobacco Use Comment Angie davis Oct 10, 2023 09:00 AM [place]-TOBACCO QUIT 15 YRS OR MORE [facility] Encounter Notes: All associated encounter notes This section contains the clinical notes associated to the Encounter. Date/Time Encounter Note(s) Provider Source Oct 10, 2023 09:47 AM INTERNAL MEDICINE NOTE: LOCAL TITLE: MEDICINE CLINIC NOTE STANDARD TITLE: INTERNAL MEDICINE NOTE DATE OF NOTE: OCT 10, 2023@09:47 ENTRY DATE: OCT 10, 2023@09:47:27 AUTHOR: LISSETH GOMEZ: URGENCY: STATUS: COMPLETED CC: establish care Assessment and Plan: 1. Atrial fibrillation. Followed by [facility]. Recently switched to apixaban for anticoagulation, but it is very expensive for them. Anticoagulation clinic consult placed to provide apixaban to patient through [place] pharmacy benefits. 2. Establish care. Reviewed med list and entered remaining medications. Updated problem list. He will continue to receive most care through [facility] and [facility]. Total time spent with patient care including chart review/diagnostic and testing review, patient interview/examination, counseling and documentation was 60 minutes. HPI/ROS: YOSI CHOI (Yosi) is a 83 year old MALE here with his Tigist to establish care. 1. Co-managed care. Gets care through [facility] for atrial fibrillation. Gets care in [place] from Dr. Lisseth Agee ([facility] clinic in [place]). 2. Numerous other medical issues. See updated problem list/med list for details. PMH: Problem List - Active - NONE FOUND Allergies: AMIODARONE (Oct 10, 2023) GOLDENROD POLLEN (Oct 10, 2023) Meds: Reviewed & updated in CPRS. See EMR for details. EXAM: VS: Temp: 97.4 F [36.3 C] (10/10/2023 08:58) Pulse:70 (10/10/2023 09:10) BP: 133/80 (10/10/2023 09:10) Resp: 16 (10/10/2023 08:58) O2 sat: 93% (10/10/2023 08:58) Weight: Measurement DT WEIGHT LB(KG)[BMI] 10/10/2023 08:58 159.7(72.44)[25] General: WDWN, NAD HEENT: NCAT Lungs: speaking in complete sentences, nwob Neuro: Ambulates without assist device, alert & oriented, EOMI. Data/Labs: Reviewed in EMR. Labs completed prior to today's appointment were reviewed with patient during appointment. Education on Treatment Plan: Patient indicates readiness to learn, verbalizes understanding, agreement and satisfaction with the treatment plan. Denies further questions. Patient indicates readiness to learn and has been instructed on action, dose, frequency, and side effects of medications. Patient verbalizes understanding. /farzad/ LISSETH GOMEZ Physician Signed: 10/25/2023 00:50 LISSETH GOMEZ [facility] Oct 10, 2023 09:02 AM INTERNAL MEDICINE OUTPATIENT NOTE: LOCAL TITLE: MEDICINE CLINIC NURSING NOTE STANDARD TITLE: INTERNAL MEDICINE OUTPATIENT NOTE DATE OF NOTE: OCT 10, 2023@09:02 ENTRY DATE: OCT 10, 2023@09:02:22 AUTHOR: NIMESH BLAIR EXP COSIGNER: URGENCY: STATUS: COMPLETED TYPE OF VISIT: Appointment Check In Type of appointment: In-person appointment REASON FOR VISIT: Establish care ALLERGIES: No Allergy Assessment VITAL SIGNS: Blood Pressure: 165/86 (10/10/2023 08:58) Pulse: 70 (10/10/2023 08:58) Respiration: 16 (10/10/2023 08:58) Temperature: 97.4 F [36.3 C] (10/10/2023 08:58) Weight: 159.7 lb [72.44 kg] (10/10/2023 08:58) Height: 66.5 in [168.9 cm] (10/10/2023 08:58) BMI: 25.4 O2 Sat: 93% (10/10/2023 08:58) Pain: 0 (10/10/2023 08:58) PAIN SCREEN: Patient is not having significant pain that they wish to discuss with their provider today. MEDICATION Active Outpatient Medications (including Supplies): No Medications Found Over the Counter/Herbal Medications: The patient denies taking any outside medications or herbals. 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 The [place]/caregiver was informed that we will continue to ask this screening question every 5 years. They can contact their provider/healthcare team if they have concerns about exposures and would like to be screened sooner. Printed information was offered and provided if desired. Suicide Screen: C-SSRS Screening [place] Suicide Severity Rating Scale (C-SSRS) screener 1. Over the past month, have you wished you were or wished you could go to sleep and not wake up? No 2. Over the past month, have you had any actual thoughts of killing yourself? No 3. Over the past month, have you been thinking about how you might do this? Response not required due to responses to other questions. 4. Over the past month, have you had these thoughts and had some intention of acting on them? Response not required due to responses to other questions. 5. Over the past month, have you started to work out or worked out the details of how to kill yourself? Response not required due to responses to other questions. 6. If yes, at any time in the past month did you intend to carry out this plan? Response not required due to responses to other questions. 7. In your lifetime, have you ever done anything, started to do anything, or prepared to do anything to end your life (for example, collected pills, obtained a gun, gave away valuables, went to the roof but didn't jump)? No 8. If YES, was this within the past 3 months? Response not required due to responses to other questions. Depression Screening: Perform PHQ-2 A PHQ-2 screen was performed. The score was 0 which is a negative screen for depression. Over the past two weeks, how often have you been bothered by the following problems? 1. Little interest or pleasure in doing things Not at all 2. Feeling down, depressed, or hopeless Not at all Alcohol Use Screen (AUDIT-C): Alcohol Screen: SCREEN FOR ALCOHOL (AUDIT-C) An alcohol screening test (AUDIT-C) was negative (score=0). 1. How often did you have a drink containing alcohol in the past year? Consider a drink to be a 12 ounce can or bottle of regular beer, 8 ounces of malt liquor, a 5 ounce glass of table wine, or a 1.5 ounce shot of liquor (like scotch, gin, or vodka). Never 2. How many drinks containing alcohol did you have on a typical day when you were drinking in the past year? Response not required due to responses to other questions. 3. How often did you have six or more drinks on one occasion in the past year? Response not required due to responses to other questions. PTSD Screening: PC-PTSD-5 A PTSD screening test (PC-PTSD-5) was negative (score=0). IN THE PAST MONTH, have you ever had any experience that was so frightening, horrible or traumatic. For example: A serious accident or fire a physical or sexual assault or abuse An earthquake or flood A war Seeing someone be killed or seriously injured Having a loved one through homicide or suicide 1. Have you ever experienced this kind of event? NO 2. Had nightmares about the event(s) or thought about the event(s) when you did not want to? Response not required due to responses to other questions. 3. Tried hard not to think about the event(s) or went out of your way to avoid situations that reminded you of the event(s)? Response not required due to responses to other questions. 4. Been constantly on guard, watchful, or easily startled? Response not required due to responses to other questions. 5. Wilson numb or detached from people, activities, or your surroundings? Response not required due to responses to other questions. 6. [place] guilty or unable to stop blaming yourself or others for the event(s) or any problems the event(s) may have caused? Response not required due to responses to other questions. Nursing Annual Screening: Fall History Screen During the past 12 months, have you had any falls? Patient does not report any falls in the past 12 months. MEDICATIONS: Patient does not have an active prescription for one of the following medications: Antihypertensives, Antidepressants, Antipsychotics, Diuretics, or Opioid Analgesics (Contolled Substance medications used for pain). Script Talk Screen Are you able to read your prescription bottles with your glasses, magnifiers or other aids? Yes or patient not taking any prescriptions. Skin Screen Patient reports any current pressure ulcers, a history of pressure ulcers, or a wound from a medical scribe or Patient is bed-confined or a wheelchair-user or Patient requires assistance to transfer/change position No, Skin Screen is Negative Home Abuse/Violence Screen Is your home free of abuse and violence? Yes MOVE! Program Screen Body Mass Index (BMI)= 25.4 [place]: No data available [place] Hgb A1C: No data available [place] Hgb A1C: No data available Point of Care Hgb A1C: POC HGB A1C____ Outpatient Nutrition Screen Body Mass Index (BMI)= 25.4 [place]: No data available [place] Hgb A1C: No data available [place] Hgb A1C: No data available Point of Care Hgb A1C: POC HGB A1C____ Is patient's BMI less than 18.5? No Does patient have swallowing, coughing, or chewing problems affecting oral intake? No Has patient experienced unplanned weight loss or gain greater than 10 pounds over the last 2 months? No Is patient's Hgb A1C (Glycosylated Hemoglobin) greater than 9.5? Information not available Is patient receiving Total Parenteral Nutrition (TPN) or Tube Feedings? No Patient Health Education Screen BARRIERS/SPECIAL NEEDS: Physical limitations Hearing limitations Visual limitations PREFERRED STYLE OF LEARNING: Watching something Client Assistive Service ([place]NA[place]) Screen Does the patient require assistance with outpatient visit? No MST Screening: Patient denies experiencing sexual trauma (MST). Tobacco Use Screening: The patient is a former tobacco user. The patient quit fifteen or more years ago. Homelessness/Food Insecurity Screen: In the past 2 months, have you been living in stable housing that you own, rent, or stay in as part of a household? Yes - Living in stable housing. Are you worried or concerned that in the next 2 months you may NOT have stable housing that you own, rent, or stay in as part of a household? No - Not worried about housing near future The [place] reports the following: Within the past 12 months, you worried whether your food would run out before you got money to buy more. Never true Within the past 12 months, the food you bought just didn't last and you didn't have money to get more. Never true Food Assistance Programs [facility] Food Assistance Programs [facility] [place] /farzad/ NIMESH BLAIR LPN Signed: 10/10/2023 09:10 NIMESH BLAIR [facility] Oct 10, 2023 08:54 AM ADVANCE DIRECTIVE: LOCAL TITLE: AD NOTIFICATION AND SCREENING STANDARD TITLE: ADVANCE DIRECTIVE DATE OF NOTE: OCT 10, 2023@08:54 ENTRY DATE: OCT 10, 2023@08:54:45 AUTHOR: ROLANDO GOMEZ EXP COSIGNER: URGENCY: STATUS: COMPLETED ADVANCE DIRECTIVE NOTIFICATION: I was unable to give the patient written notification of the following rights because: Comment: pt refused ADVANCE DIRECTIVE SCREENING NOT PERFORMED: It was not possible to perform the advance directive screening because: pt refused /farzad/ ROLANDO GOMEZ MSA Signed: 10/10/2023 08:55 ROLANDO GOMEZ [facility]
--- OUTSIDE RECORDS SUMMARY | 2024-04-20 12:54 | XMS_ITS | Encounter Summary ---
Author Name [facility] [place] [facility] [place] Address [address] [place] [address] Care Team Providers Care Setter Off Name Role Phone LISSETH GOMEZ Primary Care Provider [facility] Insurance Providers: All historical and current [...] Name Patient's Relationship to Policy [place] [employer] [facility] (WNR) MEDICARE ADVANTAGE [facility] (WNR) Jul 22, 2022 [id number] OMAR CHOI PATIENT Selected Encounter This section includes the information on record at [place] for the Encounter. Date/Time Encounter Type Encounter Description Reason Provider Source Feb 07, 2024 01:34 PM Outpatient Encounter PRIMARY CARE/MEDICINE CAROL ANN POPE Encounter Template Text not used by [place] Plan of Treatment: Future Appointments (+ 6 months) and Future Tests (+/- 45 days) The Plan of Treatment section includes future care activities for the patient from all [place] treatmentfacilities. This section includes future appointments and future orders which are active, pending or scheduled. Future Appointments This section includes appointments that were scheduled to occur 6 months from the date of the Encounter, up to a maximum of 20 appointments. The data comes from all [place] treatment facilities. Appointment Date/Time Appointment Type Appointme nt Facility Name Mar 16, 2024 10:20 AM AMBULATORY - MEDICINE [facility] Mar 16, 2024 11:00 AM AMBULATORY - MEDICINE [facility] Mar 30, 2024 11:15 AM AMBULATORY - NONE [facility] Jul 30, 2024 11:20 AM AMBULATORY - MEDICINE [facility] Jul 30, 2024 02:00 PM AMBULATORY - MEDICINE [facility] Active, Pending, and Scheduled Orders This section includes a listing of several types of active, pending, and scheduled orders, including clinic medications orders, diagnostic test orders, procedure orders and consult orders; where the start date of the order is 45 days before the date of the Encounter or 45 days after the date of theEncounter. The data comes from all [place] treatment facilities. Test Date/Time Test Type Test Details Facility Name Mar 16, 2024 11:47 AM Consult Order COMMUNITY CARE-ECHOCARDIOGRAPHY Cons Truck Guard's Choice [facility] Social History: Smoking Status (Most current) and Tobacco Use (All prior to encounter date) This section includes the most current, and the historical, smoking and tobacco- related health factors from the [place] facility where the Encounter took place. Current Smoking Status This section includes the most current smoking, or tobacco-related health factor, from the [place] facility where the Encounter took place. Date/Time Current Smoking Status Comment Facil ity Oct 10, 2023 09:00 AM [place]-TOBACCO FORMER USER [facility] Tobacco Use History This section includes a history of the smoking, or tobacco-related health factors, that were collected on or before the date of the Encounter. The data comes from the [place] facility where the Encounter took place. Date/Time Smoking Status/Tobacco Use Comment F acility Oct 10, 2023 09:00 AM [place]-TO[place]AC[place] QUIT 15 YRS OR MORE [facility] Encounter Notes: All associated encounter notes This section contains the clinical notes associated to the Encounter. Date/Time Encounter Note(s) Provider Source Feb 07, 2024 01:34 PM PRIMARY CARE SECUR E MESSAGING: LOCAL TITLE: PRIMARY CARE SECURE MESSAGING STANDARD TITLE: PRIMARY CARE SECURE MESSAGING DATE OF NOTE: FEB 07, 2024@13:34 ENTRY DATE: FEB 07, 2024@13:34:46 AUTHOR: CAROL ANN POPE COSIGNER: URGENCY: STATUS: COMPLETED ------Original Message ------ Sent: 02/07/2024 02:34 PM ET From: CAROL ANN POPE To: TORY CHOI Subject: Appointment:Appointment Inquiry Good afternoon, A Pulmonology consult has been ordered. This may take multiple weeks to get scheduled and completed. If you have shortness of breath or unable to keep O2 sats > 89% with current oxygen prior to consult, you should present to the ED. Additionally, Pulmonology may also want you to complete other tests (such as CT chest, PFTs) prior to consult if he has not had these completed anywhere else. Carol Ann Pope RN Care Manager /es/ CAROL ANN POPE RN STAFF NURSE Signed: 02/07/2024 13:34 CAROL ANN POPE [facility]
[2024-04-20] MEDS: PERFLUTREN LIPID MICROSPHERES 2 ML VIAL IV (14:10)
--- NOTE | 2024-04-20 14:19 | PC.NURSE ---
20G IV placed in right AC. Definity given per lab support service tech instruction. IV removed intact.
== END 2024-04-20 12:50 | disposition home or self-care (01) ==
PROVIDERS: PCP Family Medicine; Visit Provider Internal Medicine Pulmonary Disease
DX: I27.29 Other secondary pulmonary hypertension (principal); I51.7 Cardiomegaly; I35.1 Nonrheumatic aortic (valve) insufficiency; I34.0 Nonrheumatic mitral (valve) insufficiency; I07.1 Rheumatic tricuspid insufficiency
CPT/HCPCS: 93306; Q9957

== ENCOUNTER 2024-04-26 12:13 | Outpatient (CLI) | payer OTHER, SELFPAY ==
--- OUTSIDE RECORDS SUMMARY | 2024-05-13 00:17 | XMS_ITS | Continuity of Care Document ---
Author Name [facility] Organization [facility] Care Team Providers Care Lead Informatica Developer Name Role Phone [facility] Unavailable Unavailable Problems Combined list of problems from Department of [facility] and Veterans Affairs facilities. It does not include entries that were removed or entered in error. 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 [facility] Chronic hypoxemic respiratory failure Active Condition [facility] Coronary heart disease Active Condition [facility] Endocrine pancreatic adenoma Active Condition Oct 25, 2023 Entered By: DAYNE GOMEZ RD Comment: s/p resection via ERCP [facility] History of placement of stent for coronary artery disease Active Condition [facility] Hyperlipidemia Active Condition [facility] Hypothyroidism Active Condition [facility] Long-Term Current Use of Anticoagulant (SCT [id number]) Active Condition [facility] Obstructive sleep apnea Active Condition [facility] Pulmonary hypertension Active Condition [facility] Tachycardia Active Condition Oct 25, 2023 Entered By: DAYNE GOMEZ RD Comment: Wide complex tachycardia [facility] Transient cerebral ischemia Active Condition [facility] Type 2 diabetes mellitus Active Condition [facility] Diagnosis: ICD-10-CM J84.9 Interstitial pulmonary disease, unspecified Active Diagnosis [facility] Diagnosis: ICD-10-CM Z79.01 terminologist (current) use of anticoagulants Active Diagnosis [facility] Diagnosis: ICD-10-CM I48.91 Unspecified atrial fibrillation Active Diagnosis [facility] Medications Combined list of outpatient medications from Department of [facility] and Veterans Affairs facilities.Medications provided include 1) outpatient medications from the last 15 months, and 2) patient-reported medications. Medication Details Route Status Patient Instructions Prescription Expires Prescription Number Last Dispense Date Ordering Provider Order Date Order Qty Source APIXABAN 5MG TAB TAKE ONE TABLET BY MOUTH EVERY 12 HOURS TO PREVENT STROKES ORAL ACTIVE 11/13/2024 [id number] POROSELINE SWEENEY 2023 180 [facility] APIXABAN 5MG TAB TAKE ONE TABLET BY MOUTH EVERY 12 HOURS TO PREVENT STROKES ORAL DISCONT INUED 11/24/2023 [id number] LISSETH GOMEZ 2023 60 [facility] ASCORBIC ACID 500MG TAB TAKE ONE TABLET BY MOUTH EVERY DAY ORAL ACTIVE LISSETH GOMEZ 2023 [facility] ATORVASTATI N [place] 80MG TAB TAKE ONE TABLET BY MOUTH EVERY DAY ORAL ACTIVE LISSETH GOMEZ 2023 [facility] CHOLECALCIF KALEN 10MCG (400UNIT) TAB TAKE TWO TABLETS BY MOUTH DAILY ORAL ACTIVE LISSETH GOMEZ 2023 [facility] FISH OIL 1000MG (500MG DHA/EPA) CAP,ORAL TAKE 1 CAPSULE BY MOUTH DAILY ORAL ACTIVE LISSETH GOMEZ 2023 [facility] GLIPIZIDE 10MG TAB TAKE ONE TABLET BY MOUTH EVERY DAY ORAL ACTIVE LISSETH GOMEZ 2023 [facility] LEVOTHYROXI NE NA 50MCG TAB (SYNTHROID) TAKE ONE TABLET BY MOUTH EVERY DAY ORAL ACTIVE LISSETH GOMEZ 2023 [facility] LUTEIN CAP/TAB TAKE 20 MG BY MOUTH DAILY ORAL ACTIVE LISSETH GOMEZ 2023 [facility] METFORMIN HCL 500MG 24HR TAB,SA TAKE ONE TABLET BY MOUTH TWICE A DAY ORAL ACTIVE LISSETH GOMEZ 2023 [facility] METOPROLOL SUCCINATE 50MG TAB,SA TAKE ONE TABLET BY MOUTH DAILY ORAL ACTIVE LISSETH GOMEZ 2023 [facility] MULTIVITAMI N/MINERALS SENIOR FORMULA TAB TAKE ONE TABLET BY MOUTH DAILY ORAL ACTIVE LISSETH GOMEZ 2023 [facility] NITROGLYCER IN 0.4MG TAB,SUBLING UAL DISSOLVE ONE TABLET UNDER THE TONGUE EVERY 5 MINUTES FOR UP TO 3 DOSES IF NEEDED NEEDED SUBLIN GUAL ACTIVE LISSETH GOMEZ 2023 [facility] OMEPRAZOLE 20MG CAP,EC TAKE 1 CAPSULE BY MOUTH TWICE A DAY ORAL ACTIVE LISSETH GOMEZ 2023 [facility] PIRFENIDONE 267MG CAP,ORAL TAKE ONE CAPSULE BY MOUTH THREE TIMES A DAY FOR 7 DAYS, THEN TAKE TWO CAPSULES THREE TIMES A DAY FOR 7 DAYS, THEN TAKE THREE CAPSULES THREE TIMES A DAY FOR PULMONAR Y FIBROSIS TAKE WITH FOOD. ORAL ACTIVE 05/21/2024 [id number] UCHE LAWSON 2023 270 [facility] SOTALOL HCL 120MG TAB TAKE ONE TABLET BY MOUTH TWO TIMES A DAY ORAL ACTIVE PATRICIA LISSETH 2023 [facility] TAMSULOSIN HCL 0.4MG CAP TAKE 1 CAPSULE BY MOUTH DAILY ORAL ACTIVE PATRICIA LISSETH 2023 [facility] TRIAMCINOLO NE ACETONIDE 0.1% CREAM,TOP APPLY A THIN LAYER TOPICALL Y THREE TIMES A DAY NEEDED [place] L ACTIVE PATRICIA LISSETH 2023 [facility] Allergies, Adverse Reactions, Alerts Combined list of allergies from Department of Defense and Veterans Affairs facilities. It does not include entries that were removed or entered in error. Substance Category Reaction Severity Reaction type Status Date Reported Comments Source AMIODARONE Propensity to adverse reactions to drug (finding) Respiratory distress active 4 [facility] GOLDENROD POLLEN Propensity to adverse reaction (finding) Urticaria active 4 [facility] Immunizations Combined list of available immunizations from the Department of [facility] and Veterans Affairs facilities. Immunization Series Date Given Administered By Site Reaction Lot Number CVX Code Drug Apparel Designer Status Comments Source COVID-19 (gokit), MRNA, LNP-S, PF, VINOD-SUCROSE, 30 MCG/0.3 ML (AGES 12+ YEARS) 2022 309 complet ed [facility] INFLUENZA VACCINE, QUADRIVALENT, ADJUVANTED 2022 205 complet ed [facility] RSV, RECOMBINANT, PROTEIN SUBUNIT RSVPREF, ADJUVANT RECONSTITUTED , 0.5 ML, PF 2022 303 complet ed [facility] PNEUMOCOCCAL CONJUGATE PCV20, POLYSACCHARID E [id number] CONJUGATE, ADJUVANT, PF 2022 216 complet ed [facility] COVID-19 (gokit), MRNA, LNP-S, BIVALENT, PF, 30 MCG/0.3 ML DOSE 2021 300 complet ed [facility] INFLUENZA VACCINE, QUADRIVALENT, ADJUVANTED 2021 205 complet ed [facility] COVID-19 (gokit), MRNA, LNP-S, PF, 30 MCG/0.3 ML DOSE, VINOD-SUCROSE (AGES 12+ YEARS) 2021 217 complet ed [facility] COVID-19 (gokit), MRNA, LNP-S, PF, 30 MCG/0.3 ML DOSE 2020 208 complet ed [facility] INFLUENZA, HIGH-DOSE, QUADRIVALENT 2020 197 complet [facility] COVID-19 (gokit), MRNA, LNP-S, PF, 30 MCG/0.3 ML DOSE 2020 208 complet ed [facility] COVID-19 (gokit), MRNA, LNP-S, PF, 30 MCG/0.3 ML DOSE 2020 208 complet [facility] ZOSTER RECOMBINANT 2019 187 complet ed [facility] INFLUENZA, HIGH-DOSE, QUADRIVALENT 2019 197 complet ed [facility] ZOSTER RECOMBINANT 2019 187 complet [facility] INFLUENZA, TRIVALENT, ADJUVANTED 2018 168 complet ed [facility] INFLUENZA, TRIVALENT, ADJUVANTED 2017 168 complet ed [facility] INFLUENZA, TRIVALENT, ADJUVANTED 2016 168 complet ed [facility] TDAP 2016 115 complet ed [facility] INFLUENZA, HIGH DOSE SEASONAL 2015 135 complet ed [facility] INFLUENZA, HIGH DOSE SEASONAL 2014 135 complet ed [facility] PNEUMOCOCCAL CONJUGATE PCV 13 2014 133 complet ed [facility] INFLUENZA, HIGH DOSE SEASONAL 2013 135 complet ed [facility] INFLUENZA, SEASONAL, INJECTABLE 2011 141 complet [facility] ZOSTER LIVE 2009 121 complet ed [facility] PNEUMOCOCCAL POLYSACCHARID E PPV23 2006 33 complet ed [facility] TDAP 2006 115 complet ed [facility] INFLUENZA, SEASONAL, INJECTABLE 2003 141 complet ed [facility] Vital Signs Combined list of inpatient and outpatient Vital Signs from Department of Defense and Veterans Affairs, ranging from 12 months to all on record, depending upon the facility. Vital Sign Value Date Comments Source SYSTOLIC BLOOD PRESSURE 118 03/16/2024 10:58:04 [facility] DIASTOLIC BLOOD PRESSURE 77 03/16/2024 10:58:04 [facility] PULSE OXIMETRY 88 03/16/2024 10:58:04 [facility] WEIGHT 159 03/16/2024 10:58:04 [facility] BMI 27kg/m2 03/16/2024 10:58:04 [facility] PAIN 0 03/16/2024 10:58:04 [facility] HEIGHT 65 03/16/2024 10:58:04 [facility] TEMPERATURE 97.4 03/16/2024 10:58:04 [place] [facility] PULSE 68 03/16/2024 10:58:04 [facility] RESPIRATION 18 03/16/2024 10:58:04 [facility] SYSTOLIC BLOOD PRESSURE 165 10/10/2023 08:58:04 [facility] DIASTOLIC BLOOD PRESSURE 86 10/10/2023 08:58:04 [facility] PULSE OXIMETRY 93 10/10/2023 08:58:04 [facility] WEIGHT 159.7 10/10/2023 08[facility]58:04 [facility] BMI 25kg/m2 10/10/2023 08:58:04 [facility] PAIN 0 10/10/2023 08:58:04 [facility] HEIGHT 66.5 10/10/2023 08:58:04 [facility] TEMPERATURE 97.4 10/10/2023 08:58:04 [place] [facility] PULSE 70 10/10/2023 08:58:04 [facility] RESPIRATION 16 10/10/2023 08[facility]58[facility]04 [facility] Encounters Combined list of: 1) Encounters from Department of Veterans Affairs facilities going back up to thelast 18 months. 2) Encounters from the Department of Defense facilities going back up to 280 months. Location Location Details Encounter Type Encounter Number Reason For Visit Attending Provider ADM Date DC Date Status Disposition Source [place] [facility] Outpatient Encounter [id number] 01/02 [place] [facility] [place] [facility] Outpatient Encounter [id number] 03/06 [place] [facility] [place] [facility] Outpatient Encounter [id number] 04[facility]26 [facility] [place] [facility] [place]/P [place] 60 MIN [id number] Diagnos is: ICD-10- CM I48.91 Unspeci fied atrial fibrill ation<b r/> Evangelista GOMEZ 10/09 [facility] [place] [facility] Outpatient Encounter [id number] 10/09 [facility] [place] [facility] Outpatient Encounter [id number] Evangelista GOMEZ 10/24 [facility] [place] [facility] Outpatient Encounter [id number] Evangelista GOMEZ 10/24 [facility] [place] [facility] Outpatient Encounter [id number] 10/27 [facility] [place] [facility] Outpatient Encounter [id number] MANJULA SALAZAR 10/30 [facility] [place] [facility] Outpatient Encounter [id number] 11/10 [facility] [place] [facility] MTMS BY PHARM ADDL 15 MIN [id number] Diagnos is: ICD-10- CM Z79.01 terminologist (curren t) use of anticoa gulants
POEPPING,H MAYURI L 11/12 [facility] [place] [facility] Outpatient Encounter [id number] GURJIT POPE 02/06 [facility] [place] [facility] Outpatient Encounter [id number] GURJIT POPE 02/06 [place] [facility] [place] [facility] Outpatient Encounter [id number] 03/16 [place] [facility] [place] DIFFUSE CAPACITY [id number] Diagnos is: ICD-10- CM J84.9 Interst itial pulmona ry disease , unspeci fied
Heidy LAWSON 03/16 [place] [facility] [place] [place]/P [place] 60 MIN [id number] Diagnos is: ICD-10- CM J84.9 Interst itial pulmona ry disease , unspeci fied
Heidy LAWSON 03/16 [place] [facility] Outpatient Encounter [id number] Diagnos is: ICD-10- CM J84.9 Interst itial pulmona ry disease , unspeci fied
BETTY GARCIA 03/17 [place] [facility] Outpatient Encounter [id number] 04/06 [place] [facility] Outpatient Encounter [id number] Diagnos is: ICD-10- CM J84.9 Interst itial pulmona ry disease , unspeci fied
Heidy LAWSON 04/14 [place] [facility] QNHP OL DIG ASSMT&MGMT 5-10 [id number] Diagnos is: ICD-10- CM J84.9 Interst itial pulmona ry disease , unspeci fied
JERSON ALDANA 04/14 [place] [facility] Outpatient Encounter [id number] Heidy LAWSON 04/16 [facility] [place] [facility] Outpatient Encounter [id number] 04/30 [facility] Social History Combined list of available smoking, tobacco, and other social history from Department of Defense and Veterans Affairs facilities. Social History Type Response Date Comment Sourc e Tobacco smoking status [place]-TO[place]AC[place] FORMER USER 10/10/2023 [place] [facility] of [facility]10[facility]2023 [facility] Plan of Care List of future care activities from Department of [facility] facilities. Additional future care activities may be listed in the Assessment and Plan section. Date/Time Care Activity Care Activity Detail Facili ty 07/30/2024 AMBULATORY - MEDICINE AM[facility]ATORY - [facility]IC[facility] 07/30/2024 AMBULATORY - MEDICINE AMBULATORY - MEDIC[facility]
--- OUTSIDE RECORDS SUMMARY | 2024-05-13 00:17 | XMS_ITS | Encounter Summary ---
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 Date/Time Encounter Type Encounter Description Reason Provider Source Mar 16, 2024 11:00 AM OFFICE O/P [place] 60 MIN PULMONARY/CHEST ICD-10-CM J84.9 Interstitial pulmonary disease, unspecified UCHE LYLE Shani Encounter Template Text not used by [place] Assessments - Encounter Diagnoses This section includes the primary and secondary diagnoses documented for the Encounter. Date/Time Primary/Secondary Diagnosis Diagnosis Name Provider Source Mar 16, 2024 01:19 PM PRIMARY Interstitial pulmonary disease, unspecified UCHE LYLE [facility] Mar 16, 2024 01:19 PM SECONDARY Chronic respiratory failure with hypoxia UCHE LYLE [facility] Mar 16, 2024 01:19 PM SECONDARY Other secondary pulmonary hypertension LULUUCHE Betzaida [facility] Mar 16, 2024 01:19 PM SECONDARY Unspecified atrial fibrillation UCHE LYLE [facility] Plan of Treatment: Future Appointments (+ 6 months) and Future Tests (+/- 45 days) The Plan of Treatment section includes future care activities for the patient [facility]. This section includes future appointments and future orders which are active, pending or scheduled. Future Appointments This section includes appointments that were scheduled to occur 6 months from the date of the Encounter, up to a maximum of 20 appointments. The data comes from all [facility] facilities. Appointment Date/Time Appointment Type Appointme nt Facility Name Mar 30, 2024 11:15 AM AMBULATORY - NONE [facility] Apr 20, 2024 02:20 PM AMBULATORY NONE [facility] Jul 30, 2024 11:20 AM AMBULATORY - MEDICINE [facility] Jul 30, 2024 02:00 PM AMBULATORY - MEDICINE [facility] Vital Signs: All taken on the encounter date This section contains inpatient and outpatient Vital Signs collected on the date of the Encounter. Date/Time Temperature Pulse Blood Pressure Respiratory Rate SP02 Pain Height Weight Body Mass Index Source Mar 16, 2024 10:58 AM 97.4 68 118/77 18 [address] [facility] Social History: Smoking Status (Most current) and Tobacco Use (All prior to encounter date) This section includes the most current, and the historical, smoking and tobacco- related health factors from the [place] facility where the Encounter took place. Current Smoking Status This section includes the most current smoking, or tobacco-related health factor, from the [place] facility where the Encounter took place. Date/Time Current Smoking Status Comment Emil herr Oct 10, 2023 09:00 AM VA-TOBACCO FORMER USER [facility] Tobacco Use History This section includes a history of the smoking, or tobacco-related health factors, that were collected on or before the date of the Encounter. The data comes from the [place] facility where the Encounter took place. Date/Time Smoking Status/Tobacco Use Comment F ryan Oct 10, 2023 09:00 AM [place]-TOBACCO QUIT 15 YRS OR MORE [facility] Radiology Reports: +/- 30 days of [...] the Encounter. The data comes from all [place] treatment facilities. Date/Time Radiology Report Provider Source Mar 30, 2024 08:[address] (C) CHEST (P): TORY CHOI [id number] -[id number] M Exm Date: MAR 30, 2024@08:46 Req Phys: BARBARA CHRISTIAN Pat Loc: [facility] PULM EVAL (Req'g Loc) Img Loc: CT IMAGING Service: [place] [address] (Case [id number] COMPLETE) CT (C) CHEST W/O CONTRAST (CT Detailed) CPT:84199 Reason for Study: evaluate for ILD Clinical [...] data available for: CREATININE .CREAT EGFR(CKD-EPI) Allergies: ([place] only) AMIODARONE (Oct 10, 2023) GOLDENROD POLLEN (Oct 10, 2023) Report Status: Verified Date Reported: MAR 30, 2024 Date Verified: MAR 30, 2024 Lead Press Operator E-Sig:/ES/ARELY DRAKE MD Report: CT CHEST WITHOUT [...] the right lower lobe with associated honeycombing. [id number] emphysematous changes. MEDIASTINUM: Thyroid unremarkable. Atherosclerotic thoracic [...] Primary Interpreting Staff: ARELY DRAKE MD, RADIOLOGIST (Lead Press Operator) /ARELY MENA-ROBERT [facility] Encounter Notes: All associated encounter notes This section contains the clinical notes associated to the Encounter. Date/Time Encounter Note(s) Provider Source Apr 14, 2024 12:14 PM ADDENDUM: LOCAL TITLE: Addendum STANDARD TITLE: ADDENDUM DATE OF NOTE: APR 14, 2024@12:14:05 ENTRY DATE: APR 14, 2024@12:14:06 AUTHOR: UCHE LYLE EXP COSIGNER: URGENCY: STATUS: COMPLETED Was able to contact today; [...] MEDICINE Signed: 04/14/2024 12:15 Receipt Acknowledged By: 05/05/2024 12:16 /es/ AP ECHOLS MD PHYSICIAN for LISSETH GOMEZ --- Original Document --- 03/16/24 PULMONARY CONSULT: [...] he stopped in 2021 after seen a Director Of Physician Practices in [facility]. He has done CT chest, TTE and PFTs at [place] in 2021, will try to obtain those [...] tachycardia 15. Long-Term Current Use of Anticoagulant ([facility] 902910 ACTIVE Medications: Active Outpatient Medications (including Supplies): [...] diffusion capacity DLCO 3.75. TTE (July, at [facility]): LVEF 40-45%. RVSP 30 mmHg. Labs, [...] the pulmonary service, please refer to the president educational institution-calendar. Barbara Christian MD Pulmonary and Critical Care Fellow /farzad/ BARBARA CHRISTIAN PULMONARY AND CRITICAL CARE FELLOW Signed: 03/16/2024 13:11 Receipt Acknowledged By: 03/16/2024 19:19 /kerry LYLE MD, MS STAFF, PULMONARY MEDICINE 03/18/2024 09:33 /farzad/ PIETRO Lemons Senior Sales Engineer 03/24/2024 14:49 /farzad/ CRISTY HERNANDEZ LEAD MATERIAL ENGINEER 03/16/2024 ADDENDUM STATUS: COMPLETED Please try to obtain results for Chest CT, TTE, PFTs and Pulmonary notes from [facility] between [id number]. /farzad/ BARBARA CHRISTIAN PULMONARY AND CRITICAL CARE FELLOW Signed: 03/16/2024 13:14 Receipt Acknowledged By: 03/18/2024 12:23 /farzad/ CRISTY HERNANDEZ LEAD MATERIAL ENGINEER 03/16/2024 13:18 /farzad/ UCHE LYLE MD, MS STAFF, PULMONARY MEDICINE 03/16/2024 ADDENDUM STATUS: COMPLETED Patient would like to purchase portable home oxygen. Please assist. /kerry CHRISTIAN PULMONARY AND CRITICAL CARE FELLOW Signed: 03/16/2024 13:16 Receipt Acknowledged By: 03/16/2024 13:19 /kerry LYLE MD, MS STAFF, PULMONARY MEDICINE 03/17/2024 12:43 /es/ DEBBIE GARCIA, RT RESPIRATORY THERAPIST 03/16/2024 ADDENDUM STATUS: COMPLETED was seen, examined, and discussed with fellow and I personally reviewed imaging and/or test results as documented in this note. The note above reflects our mutual assessment and plan. 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 Need to get outside records, but had ILD workup at [facility] with conclusion that ILD was due [...] per his report). --> Will get outside [facility] CT chests, PFTs, and pulmonary clinic notes. --> Once those records are available, can decide about any further workup, next interval visit, consideration of antifibrotics, etc. 2) Pulmonary HTN Was fairly mild by echo Jul [address] [facility], with RVSP 30 mmHg. Certainly may [...] failure Due to #1 and #2 above. [place] wants to get portable oxygen concentrator. We [...] like to complete above workup prior to [place] referral. --> Consider [place] in near future once above workup completed. RTC TBD pending above, but will plan to assume care of ILD longitudinally. Total time today, including personal review of medical records, imaging/test results, clinic visit, documentation, and orders: >60 minutes. /farzad/ UCHE LYLE MD, MS STAFF, PULMONARY MEDICINE Signed: 03/16/2024 18:51 03/18/2024 ADDENDUM STATUS: COMPLETED Records requested from [place] /farzad/ PIETRO Lemons Senior Sales Engineer Signed: 03/18/2024 14:31 03/26/2024 ADDENDUM STATUS: COMPLETED Records received from [place], sent to File room /farzad/ PIETRO Lemons Senior Sales Engineer Signed: 03/26/2024 08:57 Receipt Acknowledged By: 03/26/2024 09:42 /farzad/ UCHE LYLE MD, MS STAFF, PULMONARY MEDICINE 03/31/2024 ADDENDUM STATUS: COMPLETED Alerting Dr. Lyle to CT chest 03/30/2024 [facility] Impression: 1. Subpleural reticular markings, bronchiectatic [...] MEDICINE 03/31/2024 ADDENDUM STATUS: COMPLETED Still awaiting [facility] chest CT for assessment of any progression. /kerry LYLE MD, MS STAFF, PULMONARY MEDICINE Signed: 03/31/2024 15:50 04/06/2024 ADDENDUM STATUS: COMPLETED Outside [facility] images still not loaded for comparisons. Will ask [facility] to follow up with file room (per [facility] note, was sent to file room 11d ago). /kerry LYLE MD, MS STAFF, PULMONARY MEDICINE Signed: 04/06/2024 09:00 Receipt Acknowledged By: 04/06/2024 12:52 /kerry Lemons Senior Sales Engineer UCHE YLLE [facility] Apr 06, 2024 08:59 AM ADDENDUM: LOCAL TITLE: Addendum STANDARD TITLE: ADDENDUM DATE OF NOTE: APR 06, 2024@08:59:49 ENTRY DATE: APR 06, 2024@08:59:50 AUTHOR: UCHE LYLE EXP COSIGNER: URGENCY: STATUS: COMPLETED Outside [facility] images still not loaded for comparisons. Will ask [facility] to follow up with file room (per [facility] note, was sent to file room 11d ago). /kerry LYLE MD, MS STAFF, PULMONARY MEDICINE Signed: 04/06/2024 09:00 Receipt Acknowledged By: 04/06/2024 12:52 /kerry Lemons Senior Sales Engineer --- Original Document --- 03/16/24 PULMONARY CONSULT: [...] he stopped in 2021 after seen a Director Of Physician Practices in [facility]. He has done CT chest, TTE and PFTs at [place] in 2021, will try to obtain those [...] 15. Long-Term Current Use of Anticoagulant ([facility] 177300 ACTIVE Medications: Active Outpatient Medications (including Supplies): [...] diffusion capacity DLCO 3.75. TTE (July, at [facility]): LVEF 40-45%. RVSP 30 mmHg. Labs, [...] the pulmonary service, please refer to the president educational institution-calendar. Barbara Christian MD Pulmonary and Critical Care Fellow /farzad/ BARBARA CHRISTIAN PULMONARY AND CRITICAL CARE FELLOW Signed: 03/16/2024 13:11 Receipt Acknowledged By: 03/16/2024 19:19 /farzad/ UCHE LYLE MD, MS STAFF, PULMONARY MEDICINE 03/18/2024 09:33 /es/ PIETRO STRANGE A Senior Sales Engineer 03/24/2024 14:49 /es/ CRISTY HERNANDEZ LEAD MATERIAL ENGINEER 03/16/2024 ADDENDUM STATUS: COMPLETED Please try to obtain results for Chest CT, TTE, PFTs and Pulmonary notes from [facility] between [phone]. /farzad/ BARBARA CHRISTIAN PULMONARY AND CRITICAL CARE FELLOW Signed: 03/16/2024 13:14 Receipt Acknowledged By: 03/18/2024 12:23 /kerry HERNANDEZ LEAD MATERIAL ENGINEER 03/16/2024 13:18 /farzad/ UCHE LYLE MD, MS [...] outside records, but had ILD workup at [facility] with conclusion that ILD was due [...] per his report). --> Will get outside [facility] CT chests, PFTs, and pulmonary clinic notes. --> Once those records are available, can decide about any further workup, next interval visit, consideration of antifibrotics, etc. 2) Pulmonary HTN Was fairly mild by echo Jul [address] [facility], with RVSP 30 mmHg. Certainly may [...] discussed that this isnot available on current [place] home oxygen contract. They are getting home [...] like to complete above workup prior to [place] referral. --> Consider [place] in near future once above workup completed. RTC TBD pending above, but will plan to assume care of ILD longitudinally. Total time today, including personal review of medical records, imaging/test results, clinic visit, documentation, and orders: >60 minutes. /farzad/ UCHE LYLE MD, MS STAFF, PULMONARY MEDICINE Signed: 03/16/2024 18:51 03/18/2024 ADDENDUM STATUS: COMPLETED Records requested from [place] /kerry Lemons Senior Sales Engineer Signed: 03/18/2024 14:31 03/26/2024 ADDENDUM STATUS: COMPLETED Records received from [place], sent to File room /kerry Lemons Senior Sales Engineer Signed: 03/26/2024 08:57 Receipt Acknowledged By: 03/26/2024 09:42 /kerry LYLE MD, MS STAFF, PULMONARY MEDICINE 03/31/2024 ADDENDUM STATUS: COMPLETED Alerting Dr. Lyle to CT chest 03/30/2024 (ordered by Dr. Christian in [facility]): Impression: 1. Subpleural reticular markings, bronchiectatic changes, [...] Receipt Acknowledged By: * AWAITING SIGNATURE * UCHE LYLE 03/31/2024 ADDENDUM STATUS: COMPLETED Still awaiting [facility] chest CT for assessment of any progression. /farzad/ UCHE LYLE MD, MS STAFF, PULMONARY MEDICINE Signed: 03/31/2024 15:50 UCHE LYLE [facility] Mar 31, 2024 01:15 PM ADDENDUM: LOCAL TITLE: Addendum STANDARD TITLE: ADDENDUM DATE OF NOTE: MAR 31, 2024@13:15:50 ENTRY DATE: MAR 31, 2024@13:15:51 AUTHOR: YESENIA TEMPLE EXP COSIGNER: URGENCY: STATUS: COMPLETED Alerting Dr. Lyle to CT chest 03/30/2024 (ordered by Dr. Christian in [facility] [place]): Impression: 1. Subpleural reticular markings, bronchiectatic changes, [...] 03/31/2024 13:16 Receipt Acknowledged By: 04/14/2024 12:13 /es/ UCHE LYLE MD, MS STAFF, PULMONARY [...] he stopped in 2021 after seen a Director Of Physician Practices in [facility]. He has done CT chest, TTE and PFTs at [place] in 2021, will try to obtain those [...] tachycardia 15. Long-Term Current Use of Anticoagulant ([facility] 233052 ACTIVE Medications: Active Outpatient Medications (including Supplies): [...] diffusion capacity DLCO 3.75. TTE (July, at [facility]): LVEF 40-45%. RVSP 30 mmHg. Labs, [...] the pulmonary service, please refer to the president educational institution-calendar. Barbara Christian MD Pulmonary and Critical Care Fellow /farzad/ BARBARA CHRISTIAN PULMONARY AND CRITICAL CARE FELLOW Signed: 03/16/2024 13:11 Receipt Acknowledged By: 03/16/2024 19:19 /farzad/ UCHE LYLE MD, MS STAFF, PULMONARY MEDICINE 03/18/2024 09:33 /es/ PIETRO Lemons Senior Sales Engineer 03/24/2024 14:49 /farzad/ CRISTY HERNANDEZ LEAD MATERIAL ENGINEER 03/16/2024 ADDENDUM STATUS: COMPLETED Please try to obtain results for Chest CT, TTE, PFTs and Pulmonary notes from [facility] between [id number]. /farzad/ BARBARA CHRISTIAN PULMONARY AND CRITICAL CARE FELLOW Signed: 03/16/2024 13:14 Receipt Acknowledged By: 03/18/2024 12:23 /farzad/ CRISTY HERNANDEZ LEAD MATERIAL ENGINEER 03/16/2024 13:18 /farzad/ UCHE LYLE MD, MS [...] outside records, but had ILD workup at [facility] with conclusion that ILD was due [...] per his report). --> Will get outside [facility] CT chests, PFTs, and pulmonary clinic notes. --> Once those records are available, can decide about any further workup, next interval visit, consideration of antifibrotics, etc. 2) Pulmonary HTN Was fairly mild by echo Jul [address] [facility], with RVSP 30 mmHg. Certainly may [...] failure Due to #1 and #2 above. [place] wants to get portable oxygen concentrator. We [...] like to complete above workup prior to [place] referral. --> Consider [place] in near future once above workup completed. RTC TBD pending above, but will plan to assume care of ILD longitudinally. Total time today, including personal review of medical records, imaging/test results, clinic visit, documentation, and orders: >60 minutes. /kerry LYLE MD, MS STAFF, PULMONARY MEDICINE Signed: 03/16/2024 18:51 03/18/2024 ADDENDUM STATUS: COMPLETED Records requested from [place] /kerry Lemons Senior Sales Engineer Signed: 03/18/2024 14:31 03/26/2024 ADDENDUM STATUS: COMPLETED Records received from [place], sent to File room /kerry Lemons Senior Sales Engineer Signed: 03/26/2024 08:57 Receipt Acknowledged By: 03/26/2024 09:42 /kerry LYLE MD, MS STAFF, PULMONARY MEDICINE 03/31/2024 ADDENDUM STATUS: COMPLETED Still awaiting [facility] chest CT for assessment of any progression. /kerry LYLE MD, MS STAFF, PULMONARY MEDICINE Signed: 03/31/2024 15:50 04/06/2024 ADDENDUM STATUS: COMPLETED Outside [facility] images still not loaded for comparisons. Will ask [facility] to follow up with file room (per [facility] note, was sent to file room 11d ago). /kerry LYLE MD, MS STAFF, PULMONARY MEDICINE Signed: 04/06/2024 09:00 Receipt Acknowledged By: 04/06/2024 12:52 /kerry Lemons Senior Sales Engineer YESENIA TEMPLE [facility] Mar 26, 2024 08:56 AM ADDENDUM: LOCAL TITLE: Addendum STANDARD TITLE: ADDENDUM DATE OF NOTE: MAR 26, 2024@08:56:37 ENTRY DATE: MAR 26, 2024@08:56:39 AUTHOR: PIETRO LYLES COSIGNER: URGENCY: STATUS: COMPLETED Records received from [place], sent to File room /kerry Lemons Senior Sales Engineer Signed: 03/26/2024 08:57 Receipt Acknowledged By: 03/26/2024 [...] he stopped in 2021 after seen a Director Of Physician Practices in [facility]. He has done CT chest, TTE and PFTs at [place] in 2021, will try to obtain those [...] tachycardia 15. Long-Term Current Use of Anticoagulant ([facility] 156160 ACTIVE Medications: Active Outpatient Medications (including Supplies): [...] diffusion capacity DLCO 3.75. TTE (July, at [facility]): LVEF 40-45%. RVSP 30 mmHg. Labs, [...] the pulmonary service, please refer to the president educational institution-calendar. Barbara Christian MD Pulmonary and Critical Care Fellow /kerry CHRISTIAN PULMONARY AND CRITICAL CARE FELLOW Signed: 03/16/2024 13:11 Receipt Acknowledged By: 03/16/2024 19:19 /farzad/ UCHE LYLE MD, MS STAFF, PULMONARY MEDICINE 03/18/2024 09:33 /es/ PIETRO Lemons Senior Sales Engineer 03/24/2024 14:49 /es/ CRISTY HERNANDEZ LEAD MATERIAL ENGINEER 03/16/2024 ADDENDUM STATUS: COMPLETED Please try to obtain results for Chest CT, TTE, PFTs and Pulmonary notes from [facility] between [id number]. /farzad/ BARBARA CHRISTIAN PULMONARY AND CRITICAL CARE FELLOW Signed: 03/16/2024 13:14 Receipt Acknowledged By: 03/18/2024 12:23 /es/ CRISTY HERNANDEZ LEAD MATERIAL ENGINEER 03/16/2024 13:18 /farzad/ UCHE LYLE MD, MS STAFF, PULMONARY MEDICINE 03/16/2024 ADDENDUM STATUS: COMPLETED Patient would like to purchase portable home oxygen. Please assist. /farzad/ BARBARA CHRISTIAN PULMONARY AND CRITICAL CARE FELLOW Signed: 03/16/2024 13:16 Receipt Acknowledged By: 03/16/2024 13:19 /farzad/ UCHE LYLE MD, MS STAFF, PULMONARY MEDICINE 03/17/2024 12:43 /es/ DEBBIE GARCIA, RT RESPIRATORY THERAPIST 03/16/2024 ADDENDUM STATUS: COMPLETED [place] was seen, examined, and discussed with fellow and I personally reviewed imaging and/or test results as documented in this note. The note above reflects our mutual assessment and plan. 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 Need to get outside records, but had ILD workup at [facility] with conclusion that ILD was due [...] per his report). --> Will get outside [facility] CT chests, PFTs, and pulmonary clinic notes. --> Once those records are available, can decide about any further workup, next interval visit, consideration of antifibrotics, etc. 2) Pulmonary HTN Was fairly mild by echo Jul [address] [facility], with RVSP 30 mmHg. Certainly may [...] discussed that this isnot available on current [place] home oxygen contract. They are getting home [...] like to complete above workup prior to [place] referral. --> Consider [place] in near future once above workup completed. RTC TBD pending above, but will plan to assume care of ILD longitudinally. Total time today, including personal review of medical records, imaging/test results, clinic visit, documentation, and orders: >60 minutes. /farzad/ UCHE LYLE MD, MS STAFF, PULMONARY MEDICINE Signed: 03/16/2024 18:51 03/18/2024 ADDENDUM STATUS: COMPLETED Records requested from [place] // PIETRO Lemons Senior Sales Engineer Signed: 03/18/2024 14:31 PIETRO LYLES [facility] Mar 16, 2024 01:15 PM ADDENDUM: [...] he stopped in 2021 after seen a Director Of Physician Practices in [facility]. He has done CT chest, TTE and PFTs at [place] in 2021, will try to obtain those [...] tachycardia 15. Long-Term Current Use of Anticoagulant ([facility] 334560 ACTIVE Medications: Active Outpatient Medications (including Supplies): [...] diffusion capacity DLCO 3.75. TTE (July, at [facility]): LVEF 40-45%. RVSP 30 mmHg. Labs, [...] the pulmonary service, please refer to the president educational institution-calendar. Barbara Christian MD Pulmonary and Critical Care Fellow /farzad/ BARBARA CHRISTIAN PULMONARY AND CRITICAL CARE FELLOW Signed: 03/16/2024 13:11 Receipt Acknowledged By: 03/16/2024 19:19 /kerry LYLE MD, MS STAFF, PULMONARY MEDICINE * AWAITING SIGNATURE * PIETRO LYLES * AWAITING SIGNATURE * CRISTY HERNANDEZ 03/16/2024 ADDENDUM STATUS: COMPLETED Please try to obtain results for Chest CT, TTE, PFTs and Pulmonary notes from [facility] between [id number]. /farzad/ BARBARA CHRISTIAN PULMONARY AND CRITICAL CARE FELLOW Signed: 03/16/2024 13:14 Receipt Acknowledged By: * AWAITING SIGNATURE * CRISTY HERNANDEZ 03/16/2024 13:18 /kerry LYLE MD, MS STAFF, PULMONARY MEDICINE 03/16/2024 ADDENDUM STATUS: COMPLETED was seen, examined, and discussed with fellow and I personally reviewed imaging and/or test results as documented in this note. The note above reflects our mutual assessment and plan. 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 Need to get outside records, but had ILD workup at [facility] with conclusion that ILD was due [...] per his report). --> Will get outside [facility] CT chests, PFTs, and pulmonary clinic notes. --> Once those records are available, can decide about any further workup, next interval visit, consideration of antifibrotics, etc. 2) Pulmonary HTN Was fairly mild by echo Jul [address] [facility], with RVSP 30 mmHg. Certainly may [...] discussed that [place]not available [place] current [place] home [place]. They are getting home [...] like to complete above workup prior to [place] referral. --> Consider [place] in near future once above workup completed. RTC TBD pending above, but will plan to assume care of ILD longitudinally. Total time today, including personal review of medical records, imaging/test results, clinic visit, documentation, and orders: >60 minutes. /kerry LYLE MD, MS STAFF, PULMONARY MEDICINE Signed: 03/16/2024 18:51 BARBARA CHRISTIAN [facility] Mar 16, 2024 01:12 PM ADDENDUM: LOCAL TITLE: Addendum STANDARD TITLE: ADDENDUM DATE OF NOTE: MAR 16, 2024@13:12:17 ENTRY DATE: MAR 16, 2024@13:12:19 AUTHOR: BARBARA CHRISTIAN EXP COSIGNER: URGENCY: STATUS: COMPLETED Please try to obtain results for Chest CT, TTE, PFTs and Pulmonary notes from [facility] between [phone]. /kerry CHRISTIAN PULMONARY AND CRITICAL CARE FELLOW Signed: 03/16/2024 13:14 Receipt Acknowledged By: 03/18/2024 12:23 /farzad/ CRISTY HERNANDEZ LEAD MATERIAL ENGINEER 03/16/2024 13:18 /kerry LYLE MD, MS STAFF, PULMONARY MEDICINE [...] he stopped in 2021 after seen a Director Of Physician Practices in [facility]. He has done CT chest, TTE and PFTs at [place] in 2021, will try to obtain those [...] tachycardia 15. Long-Term Current Use of Anticoagulant ([facility] 295913 ACTIVE Medications: Active Outpatient Medications (including Supplies): [...] diffusion capacity DLCO 3.75. TTE (July, at [facility]): LVEF 40-45%. RVSP 30 mmHg. Labs, [...] the pulmonary service, please refer to the president educational institution-calendar. Barbara Christian MD Pulmonary and Critical Care Fellow /farzad/ BARBARA CHRISTIAN PULMONARY AND CRITICAL CARE FELLOW Signed: 03/16/2024 13:11 Receipt Acknowledged By: 03/16/2024 19:19 /farzad/ UCHE LYLE MD, MS STAFF, PULMONARY MEDICINE 03/18/2024 09:33 /es/ PIETRO Lemons Senior Sales Engineer * AWAITING SIGNATURE * CRISTY HERNANDEZ 03/16/2024 [...] outside records, but had ILD workup at [facility] with conclusion that ILD was due [...] per his report). --> Will get outside [facility] CT chests, PFTs, and pulmonary clinic notes. --> Once those records are available, can decide about any further workup, next interval visit, consideration of antifibrotics, etc. 2) Pulmonary HTN Was fairly mild by echo Jul [address] [facility], with RVSP 30 mmHg. Certainly may [...] discussed that this [place]not available on current [place]. They are getting home [...] like to complete above workup prior to [place] referral. --> Consider [place] in near future once above workup completed. RTC TBD pending above, but will plan to assume care of ILD longitudinally. Total time today, including personal review of medical records, imaging/test results, clinic visit, documentation, and orders: >60 minutes. /farzad/ UCHE LYLE MD, MS STAFF, PULMONARY MEDICINE Signed: 03/16/2024 18:51 BARBARA CHRISTIAN [facility] Mar 16, 2024 12:55 PM PULMONARY CONSULT: LOCAL TITLE: PULMONARY CONSULT STANDARD TITLE: PULMONARY CONSULT DATE OF NOTE: MAR 16, 2024@12:55 ENTRY DATE: MAR 16, 2024@12:56:05 AUTHOR: BARBARA CHRISITAN EXP COSIGNER: URGENCY: STATUS: COMPLETED PULMONARY CONSULT [...] he stopped in 2021 after seen a Director Of Physician Practices in [facility]. He has done CT chest, TTE and PFTs at [place] in 2021, will try to obtain those [...] 15. Long-Term Current Use of Anticoagulant (SCT 539844 ACTIVE Medications: Active Outpatient Medications (including Supplies): [...] diffusion capacity DLCO 3.75. TTE (July, at [facility]): LVEF 40-45%. RVSP 30 mmHg. Labs, [...] the pulmonary service, please refer to the president educational institution-calendar. Barbara Christian MD Pulmonary and Critical Care Fellow /kerry CHRISTIAN PULMONARY AND CRITICAL CARE FELLOW Signed: 03/16/2024 13:11 Receipt Acknowledged By: 03/16/2024 19:19 /farzad/ UCHE LYLE MD, MS STAFF, PULMONARY MEDICINE 03/18/2024 09:33 /farzad/ PIETRO Lemons Senior Sales Engineer 03/24/2024 14:49 /farzad/ CRISTY HERNANDEZ LEAD MATERIAL ENGINEER 03/16/2024 ADDENDUM STATUS: COMPLETED Please try to obtain results for Chest CT, TTE, PFTs and Pulmonary notes from [facility] between [id number]. /farzad/ BARBARA CHRISTIAN PULMONARY AND CRITICAL CARE FELLOW Signed: 03/16/2024 13:14 Receipt Acknowledged By: 03/18/2024 12:23 /kerry HERNANDEZ LEAD MATERIAL ENGINEER 03/16/2024 13:18 /kerry LYLE MD, MS STAFF, PULMONARY MEDICINE 03/16/2024 ADDENDUM STATUS: COMPLETED Patient would like to purchase portable home oxygen. Please assist. /es/ BARBARA CHRISTIAN PULMONARY AND CRITICAL CARE FELLOW Signed: 03/16/2024 13:16 Receipt Acknowledged By: 03/16/2024 13:19 /es/ UCHE LYLE MD, MS STAFF, PULMONARY MEDICINE 03/17/2024 12:43 /es/ DEBBIE GARCIA, RT RESPIRATORY THERAPIST 03/16/2024 ADDENDUM STATUS: COMPLETED [place] was seen, examined, and discussed with fellow and I personally reviewed imaging and/or test results as documented in this note. The note above reflects our mutual assessment and plan. 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 Need to get outside records, but had ILD workup at [facility] with conclusion that ILD was due [...] per his report). --> Will get outside [facility] CT chests, PFTs, and pulmonary clinic notes. --> Once those records are available, can decide about any further workup, next interval visit, consideration of antifibrotics, etc. 2) Pulmonary HTN Was fairly mild by echo Jul [address] [facility], with RVSP 30 mmHg. Certainly may [...] failure Due to #1 and #2 above. [place] wants to get portable oxygen concentrator. We [...] like to complete above workup prior to [place] referral. --> Consider [place] in near future once above workup completed. RTC TBD pending above, but will plan to assume care of ILD longitudinally. Total time today, including personal review of medical records, imaging/test results, clinic visit, documentation, and orders: >60 minutes. /farzad/ UCHE LYLE MD, MS STAFF, PULMONARY MEDICINE Signed: 03/16/2024 18:51 03/18/2024 ADDENDUM STATUS: COMPLETED Records requested from [place] /farzad/ PIETRO Lemons Senior Sales Engineer Signed: 03/18/2024 14:31 03/26/2024 ADDENDUM STATUS: COMPLETED Records received from [place], sent to File room /farzad/ PIETRO Lemons Senior Sales Engineer Signed: 03/26/2024 08:57 Receipt Acknowledged By: 03/26/2024 09:42 /farzad/ UCHE LYLE MD, MS STAFF, PULMONARY MEDICINE 03/31/2024 ADDENDUM STATUS: COMPLETED Alerting Dr. Lyle to CT [facility] 03/30[facility]2024 [facility] Impression: 1. Subpleural reticular markings, bronchiectatic [...] 7. Suspect layering gallstones without cholecystitis. /es/ YESENIA TEMPLE MD PULMONARY AND CRITICAL CARE STAFF PHYSICIAN Signed: 03/31/2024 13:16 Receipt Acknowledged By: 04/14/2024 12:13 /farzad/ UCHE LYLE MD, MS STAFF, PULMONARY MEDICINE 03/31/2024 ADDENDUM STATUS: COMPLETED Still awaiting [facility] chest CT for assessment of any progression. /farzad/ UCHE LYLE MD, MS STAFF, PULMONARY MEDICINE Signed: 03/31/2024 15:50 04/06/2024 ADDENDUM STATUS: COMPLETED Outside [facility] images still not loaded for comparisons. Will ask [facility] to follow up with file room (per [facility] note, was sent to file room 11d ago). /farzad/ UCHE LYLE MD, MS STAFF, PULMONARY MEDICINE Signed: 04/06/2024 09:00 Receipt Acknowledged By: 04/06/2024 12:52 /farzad/ PIETRO Lemons Senior Sales Engineer 04/14/2024 ADDENDUM STATUS: COMPLETED Was able to [...] 7. Suspect layering gallstones without cholecystitis. /farzad/ UCHE LYLE MD, MS STAFF, PULMONARY MEDICINE Signed: 04/14/2024 12:15 Receipt Acknowledged By: * AWAITING SIGNATURE * LISSETH GOMEZ [facility]
--- OUTSIDE RECORDS SUMMARY | 2024-05-13 00:18 | XMS_ITS | Encounter Summary ---
Author Name [facility] [place] [facility] [place] Organization [facility] [place] Address [address] [place] [address] Care Team Providers Care [employer] Librarian Name Role Phone HOANG GOMEZ Primary Care Provider [facility] Insurance Providers: All historical and current Section [...] Name Patient's Relationship to Policy [place] [employer] [facility] (WNR) MEDICARE ADVANTAGE MCR (WNR) Jul 22, 2022 [id number] OMAR CHOI PATIENT Selected Encounter This section includes the information on record at [place] for the Encounter. Date/Time Encounter Type Encounter Description Reason Provider Source Apr 16, 2024 09:50 AM Outpatient Encounter ADMIN PAT ACTIVTIES (MASNONCT) UCHE LYLE Encounter Template Text not used by [place] Plan of Treatment: Future Appointments (+ 6 months) and Future Tests (+/- 45 days) The Plan of Treatment section includes future care activities for the patient from all [place] treatmentfacilities. This section includes future appointments and future orders which are active, pending or scheduled. Future Appointments This section includes appointments that were scheduled to occur 6 months from the date of the Encounter, up to a maximum of 20 appointments. The data comes from all [place] treatment facilities. Appointment Date/Time Appointment Type Appointme nt Facility Name Apr 20, 2024 02:20 PM AMBULATORY - NONE LIZZY DUMONT [facility] Jul 30, 2024 11:20 AM AMBULATORY - MEDICINE LUIS ENRIQUE CALIX [facility] Jul 30, 2024 02:00 PM AMBULATORY - MEDICINE [facility] Social History: Smoking Status (Most current) and Tobacco Use (All prior to encounter date) This section includes the most current, and the historical, smoking and tobacco- related health factors from the [place] facility where the Encounter took place. Current Smoking Status This section includes the most current smoking, or tobacco-related health factor, from the [place] facility where the Encounter took place. Date/Time Current Smoking Status Comment Facil ity Oct 10, 2023 09:00 AM [place]-TOBACCO FORMER USER [facility] Tobacco Use History This section includes a history of the smoking, or tobacco-related health factors, that were collected on or before the date of the Encounter. The data comes from the [place] facility where the Encounter took place. Date/Time Smoking Status/Tobacco Use Comment F acility Oct 10, 2023 09:00 AM [place]-TOBACCO QUIT 15 YRS OR MORE [facility] Radiology Reports: +/- 30 days of [...] the Encounter. The data comes from all [place] treatment facilities. Date/Time Radiology Report Provider Source Mar 30, 2024 08:[address] (C) CHEST (P): YOSI CHOI [id number] -[id number] M Exm Date: MAR 30, 2024@08:46 Req Phys: BARBARA CHRISTIAN Loc: [facility] (Req'g Loc) Img Loc: CT IMAGING Service: [place] [address] (Case [id number] COMPLETE) CT (C) CHEST W/O CONTRAST (CT Detailed) CPT:83653 Reason for Study: evaluate for ILD Clinical [...] data available for: CREATININE .CREAT EGFR(CKD-EPI) Allergies: ([place]keye only) AMIODARONE (Oct 10, 2023) GOLDENROD POLLEN (Oct 10, 2023) Report Status: Verified Date Reported: MAR 30, 2024 Date Verified: MAR 30, 2024 Welding Systems And Equipment Repairer E-Sig:/ES/ARELY DRAKE MD Report: CT CHEST [...] the right lower lobe with associated honeycombing. [id number] emphysematous changes. MEDIASTINUM: Thyroid unremarkable. Atherosclerotic thoracic [...] Primary Interpreting Staff: ARELY DRAKE MD, RADIOLOGIST (Welding Systems And Equipment Repairer) /[facility]ELY [facility] Encounter Notes: All associated encounter notes This section contains the clinical notes associated to the Encounter. Date/Time Encounter Note(s) Provider Source May 01, 2024 01:39 PM ADDENDUM: LOCAL TITLE: Addendum STANDARD TITLE: ADDENDUM DATE OF NOTE: MAY 01, 2024@13:39:16 ENTRY DATE: MAY 01, 2024@13:39:17 AUTHOR: CANDICE ISAAC EXP COSIGNER: URGENCY: STATUS: COMPLETED Reviewed chart to f/u on ILD labs Sadly, reviewed a note in [facility] that pt at home on 04/26/24 signed by outside provider Hoang Agee MD. Alerting PACT and pt's Legislative Aide Dr. Lyle. /farzad/ CANDICE ISAAC RN Staff Nurse/Pulmonary Rural Electrification Engineer Signed: 05/01/2024 13:43 Receipt Acknowledged By: 05/01/2024 15:09 /es/ UCHE LYLE MD, MS STAFF, PULMONARY MEDICINE 05/03/2024 15:52 /es/ HOANG GOMEZ Physician 05/01/2024 15:33 /es/ JOY TAVAREZ RN for GURJIT POPE 05/05/2024 11:36 /es/ CRISTHIAN CRANE [facility]SA JANITORIAL SUPERVISOR === --- Original Document --- 04/16/24 PULM INTERSTITIAL LUNG PROCUREMENT ANALYST NOTE: Reviewed following education with Byron this morning: [...] Fibrosis /farzad/ CANDICE ISAAC RN Staff Nurse/Pulmonary Rural Electrification Engineer Signed: 04/16/2024 10:04/16/2024 ADDENDUM STATUS: COMPLETED Reviewed Pirfenidone education w/Byron this morning, see attached. Need baseline LFTs prior to initiating medication--will be done locally at [facility] lab consult placed. F/u plan: -baseline LFTs *prior* to starting Pirfenidone. We will call when results received to give them the ok to start Pirfenidone -f/u monthly for LFT's x 6 months, [facility] consult placed -f/u w/Dr. Lyle 07/30/23 w/PFTs prior -call with issues [phone] /farzad/ CANDICE ISAAC RN Staff Nurse/Pulmonary Rural Electrification Engineer Signed: 04/16/2024 10:12 04/16/2024 ADDENDUM STATUS: COMPLETED Regarding 07/30/24 appts, [facility] requesting an early appt with as they [facility] and need to leave early. Reviewed with Dr. Lyle, pt should come to clinic after PFTs at 11:20--clinic staff can message him and he will plan to see them early. [facility] was very appreciative of this accomodation. /farzad/ CANDICE ISAAC RN Staff Nurse/Pulmonary Rural Electrification Engineer Signed: 04/16/2024 10:50 CANDICE ISAAC [facility] Apr 16, 2024 09:50 AM PULMONARY NOTE: LOCAL TITLE: PULM INTERSTITIAL LUNG PROCUREMENT ANALYST NOTE STANDARD TITLE: PULMONARY NOTE DATE OF NOTE: APR 16, 2024@09:50 ENTRY DATE: APR 16, 2024@09:51 AUTHOR: CANDICE ISAAC EXP COSIGNER: URGENCY: STATUS: COMPLETED PULM INTERSTITIAL LUNG PROCUREMENT ANALYST NOTE Has ADDENDA Reviewed following education with [facility] and [place] this morning: -Pulmonary Fibrosis cannot be cured. [...] Fibrosis /farzad/ CANDICE ISAAC RN Staff Nurse/Pulmonary Rural Electrification Engineer Signed: 04/16/2024 10:09 04/16/2024 ADDENDUM STATUS: COMPLETED Reviewed Pirfenidone education w/Byron this morning, see attached. Need baseline LFTs prior to initiating medication--will be done locally at [facility] lab consult placed. F/u plan: -baseline LFTs *prior* to starting Pirfenidone. We will call when results received to give them the ok to start Pirfenidone -f/u monthly for LFT's x 6 months, [facility] consult placed -f/u w/Dr. Lyle 07/30/23 w/PFTs prior -call with issues [phone] /farzad/ CANDICE ISAAC RN Staff Nurse/Pulmonary Rural Electrification Engineer Signed: 04/16/2024 10:12 04/16/2024 ADDENDUM STATUS: COMPLETED Regarding 07/30/24 appts, [facility] requesting an early appt with as they [facility] and need to leave early. Reviewed with Dr. Lyle, pt should come to clinic after PFTs at 11:20--clinic staff can message him and he will plan to see them early. [facility] was very appreciative of this accomodation. /farzad/ CANDICE ISAAC RN Staff Nurse/Pulmonary Rural Electrification Engineer Signed: 04/16/2024 10:50 05/01/2024 ADDENDUM STATUS: COMPLETED Reviewed chart to f/u on ILD labs Sadly, reviewed a note in [facility] that pt at home on 04/26/24 signed by outside provider Hoang Agee MD. Alerting PACT and pt's Legislative Aide Dr. Lyle. /farzad/ CANDICE ISAAC, towel distributor Nurse/Pulmonary Rural Electrification Engineer Signed: 05/01/2024 13:43 Receipt Acknowledged By: * AWAITING SIGNATURE * UCHE LYLE * AWAITING SIGNATURE * HOANG GOMEZ * AWAITING SIGNATURE * GURJIT POPE * AWAITING SIGNATURE * CRISTHIAN CRANE [facility]IE S [facility]
--- OUTSIDE RECORDS SUMMARY | 2024-05-13 00:18 | XMS_ITS | Encounter Summary ---
Author Name [facility] [place] Organization [facility] [place] Address [address] [place] [id number] Care Team Providers Care Imaging Engineer Name Role Phone LISSETH GOMEZ Primary Care Provider [facility] Insurance Providers: All historical and current [...] Name Patient's Relationship to Policy [place] [employer] [facility] (WNR) MEDICARE ADVANTAGE [facility] (WNR) Jul 22, 2022 [id number] OMAR CHOI PATIENT Selected Encounter This section includes the information on record at [place] for the Encounter. Date/Time Encounter Type Encounter Description Reason Pro vider Source Apr 30, 2024 06:25 AM Outpatient Encounter EVENT (HISTORICAL) [facility] Encounter Template Text not used by [place] Plan of Treatment: Future Appointments (+ 6 months) and Future Tests (+/- 45 days) The Plan of Treatment section includes future care activities for the patient from all [place] treatmentfacilities. This section includes future appointments and future orders which are active, pending or scheduled. Future Appointments This section includes appointments that were scheduled to occur 6 months from the date of the Encounter, up to a maximum of 20 appointments. The data comes from all [place] treatment facilities. Appointment Date/Time Appointment Type Appointme nt Facility Name Jul 30, 2024 11:20 AM AMBULATORY - MEDICINE [facility] Jul 30, 2024 02:00 PM AMBULATORY - MEDICINE [facility] Social History: Smoking Status (Most current) and Tobacco Use (All prior to encounter date) This section includes the most current, and the historical, smoking and tobacco- related health factors from the [place] facility where the Encounter took place. Current Smoking Status This section includes the most current smoking, or tobacco-related health factor, from the [place] facility where the Encounter took place. Date/Time Current Smoking Status Comment Emil herr Oct 10, 2023 09:00 AM [place]-TOBACCO FORMER USER [facility] Tobacco Use History This section includes a history of the smoking, or tobacco-related health factors, that were collected on or before the date of the Encounter. The data comes from the [place] facility where the Encounter took place. Date/Time Smoking Status/Tobacco Use Comment F ryan Oct 10, 2023 09:00 AM [place]-TOBACCO QUIT 15 YRS OR MORE [facility]
--- OUTSIDE RECORDS SUMMARY | 2024-05-13 00:19 | XMS_ITS | Continuity of Care Document ---
Author Organization [facility] Address [address] [address] [place] [address] Phone Care Team Providers Care Director [employer] Name Role Phone Peter Singh MD Unavailable Unavailabl e Allergies, Adverse Reactions, Alerts Substance Reaction Status Criticality No Known Allergies Active No Inform ation Medications Medication Instructions Dosage Effective Dates (start - stop) Status Comments Eliquis 5 mg tablet take 1 tablet by oral route 2 times every day 5 MG - Active Vitamin C 500 mg tablet take 1 Tablet by Oral route every day 1 Tablet - Active atorvastatin 40 mg tablet take 1 tablet by oral route every day at bedtime 40 MG - Active lrladla-yguezqafv-djzi tablet take 1 tablet by oral route every day - Active cholecalciferol (vitamin D3) 1,000 unit tablet take 1 by Oral route every day 1 - Active finasteride 5 mg tablet take 1 tablet by oral route every morning 5 MG - Active glipizide 10 mg tablet take 1 tablet by oral route 2 times every day before meals 10 MG - Active losartan 25 mg tablet take 1 tablet by oral route every day 25 MG - Active lutein 20 mg tablet take 1 by oral route every day 1 - Active metformin 500 mg tablet take 2 tablets in morning and one in evening - Active multivitamin tablet take 1 Tablet by ORAL route every day 1 Tablet - Active nitroglycerin 0.[address] 1 tablet by sublingual route at the 1st sign of attack; may repeat every 5 min until relief; if pain persists after 3 tablets in 15 min, prompt medical attention is recommended 0.4 MG - Active omega-3 fatty acids 1,000 mg capsule take 1 Tablet by Oral route every day 1 Tablet - Active omeprazole 20 mg capsule,delayed release take 1 Capsule by ORAL route 2 times every day before meals 20 MG - Active triamcinolone acetonide 0.1 % topical cream apply by topical route 3 times every day a thin layer to the affected area(s) Not Available - Active vitamin B complex tablet take 1 by Oral route every day 1 - Active vitamin E 400 unit capsule take 1 by Oral route every day 1 - Active Procedures Procedure Date Ugi Endo; Dx W/wo Collec Specm ERCP w/stent & sphinc Ercp; W/sphincterotomy/papillo Ugi Endo; W/bx /mx Ugi Endo. w/EMR Ugi Endo w/ablation Telephone E&M II 11-20 Min REAGAN Ugi Endo w/ablation Ugi Endo w/ablation Ugi Endo; W/bx /mx Offic/outpt E&m [facility] Advance Directives Directive Yes / No Effective Date File Name No Information Encounters Encounter Description Practice Location Reason(s) For Visit Diagnoses Date Provider Providers Copied on Encounter [facility], [address] [address], [place], [place], [id number], [place] tel:[phone] [facility] No Information 4 Memo Green. [address] [address], [place], [place], [id number], [place]. tel:[phone] [facility], [address] [address], [place], [place], [id number], [place] tel:[phone] [facility] No Information 1 Magdaleno Schilling. [address] [place] [address], [id number], [place]. tel:[phone] Referring Provider: Shakir Elizabeth, [address] [place] [address], [id number]. tel:[phone] [facility], [address] [address], [place], [id number], [place] tel:[phone] [facility] Ampullary adenoma 1 Magdaleno Schilling. [address] [place] [address], [id number], [place]. tel:[phone] [facility], [address] [address], [place], [id number], [place] tel:[phone] [facility] No Information 1 Magdaleno Schilling. [address] [place] [address], [id number], [place]. tel:[phone] Referring Provider: Hoang Borden, [address] [facility], [place], [address]. tel:[phone] [facility], [address] [address], [place], [id number], [place] tel:[phone] [facility] Ampullary adenoma 1 Jake Rudolph. [address] [place] [address], [id number], [place]. tel:[phone] [facility], [address] [address], [place], [id number], [place] tel:[phone] [facility] No Information 1 Jake Rudolph. [address] [place] [address], [id number], [place]. tel:[phone] Referring Provider: Hoang Borden, [address] [facility], [place], [address]. tel:[phone] [facility], [address] [address], [place], [id number], [place] tel:[phone] [facility] No Information Oct-0 1-202 0 Ashlee Plasencia. [address] [facility], [facility] [address], [place], [id number], [place]. 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 [address] [facility], [facility] [address], [place], [id number], [place]. tel:[phone] Referring Provider: Referral Self, USE FOR SELF REFERRALS. [facility], [address] [address], [place], [id number], [place] tel:[phone] [facility] Ampullary adenoma Sep-1 4-202 0 Jake Rudolph. [address] [facility], [facility] [address], [place], [id number], [place]. [phone] [facility], [address] [address], [place], [id number], [place] tel:[phone] [facility] Ibarra's esophagus with low grade dysplasia Sep-1 0-202 0 Jake Rudolph. [address] [facility], [facility] [address], [place], [id number], [place]. [phone] [facility], [address] [address], [place], [id number], [place] tel:[phone] [facility] No Information Sep-1 0-202 0 Jake Rudolph. [address] [facility], [facility] [address], [place], [id number], [place]. tel:[phone] Referring Provider: Yunior Lemons, [address], [place], [address]. tel:[phone] [facility], [address] [address], [place], [id number], [place] tel:[phone] [facility] No Information 0 Jake Rudolph. [address] [facility], [facility] [address], [place], [id number], [place]. [phone] [facility], [address] [address], [facility] [place], [id number], [place] tel:[phone] [facility] Ibarra's esophagus with low grade dysplasia 9 Jake Rudolph. [address] [facility], [facility] [address], [place], [place], [id number], [place]. [phone] [facility], [address] [address], [facility] [place], [id number], [place] tel:[phone] [facility] No Information 9 Jake Rudolph. [address] [facility], [address], [id number], [place]. tel:[phone] Referring Provider: Yunior Lemons, [address], [place], [address]. tel:[phone] Offic/outpt E&m [facility], [address] [address], [facility] [place], [id number], [place] tel:[phone] [facility] GI Symptoms or Concerns (chief complaint) Ibarra's esophagus with low grade dysplasia 9 Jake Rudolph. [address] [facility], [facility] [address], [place], [id number], [place]. tel:[phone] Referring Provider: Yunior Lemons, [address], [place], [address]. tel:[phone] Family History Family Member Type Diagnosis Age At Onset Mother Problem (finding) malignant neoplasm of p ancreas Father Problem (finding) alcoholism Son Problem (finding) Alive and well Brother Problem (finding) Daughter Problem (finding) Alive and well Mother Problem (finding) Diabetes mellitus Father Problem (finding) Cirrhosis Immunizations Vaccine Date Status Comments SARS-COV-2 (COVID-19) vaccin e, mRNA, spike protein, LNP, preservative free, 30 mcg/0.3mL dose administered Note: [facility] bi-direct ional interface ; Source: Other Registry zoster vaccine recombinant administered N ote: [facility] bi-directional interface ; Source: Other Registry influenza, high-dose seasona l, quadrivalent, .7mL dose, preservative free administered Note: [facility] bi-direct ional interface ; Source: Other Registry zoster vaccine recombinant administered N ote: [facility] bi-directional interface ; Source: Other Registry Seasonal trivalent influenza vaccine, adjuvanted, preservative free administered Note: [facility] bi-direct ional interface ; Source: Other Registry Seasonal trivalent influenza vaccine, adjuvanted, preservative free administered Note: [facility] bi-direct ional interface ; Source: Other Registry Seasonal trivalent influenza vaccine, adjuvanted, preservative free administered Note: [facility] bi-direct ional interface ; Source: Other Registry tetanus toxoid, reduced diphtheria toxoid, and acellular pertussis vaccine, adsorbed administered Note: [facility] b i-directional interface ; Source: Other Registry influenza, high dose seasona l, preservative-free administered Note: [facility] bi-direct ional interface ; Source: Other Registry influenza, high dose seasona l, preservative-free administered Note: [facility] bi-direct ional interface ; Source: Other Registry Prevnar 13 administered Note: [facility] bi-d irectional interface ; Source: Other Registry influenza, high dose seasona l, preservative-free administered Note: [facility] bi-direct ional interface ; Source: Other Registry zoster vaccine, live administered Note: [facility] bi-directional interface ; Source: Other Registry Pneumovax 23 administered Note: [facility] bi-d irectional interface ; Source: Other Registry tetanus toxoid, reduced diphtheria toxoid, and acellular pertussis vaccine, adsorbed administered Note: [facility] b i-directional interface ; Source: Other Registry Influenza, seasonal, injectable administe red Note: [facility] bi- directional interface ; Source: Other Registry Payers Payer name Insurance type Covered republican ID Authoriza tirhianna(s) No Information Social History Type Description Quantity Date Captured Comments Sex Male Smoking Status No Information Chief Complaint And Reason For Visit No Information Reason For Referral Reason For Referral No Information Plan Of Treatment Date Type Action Status Referral Ordered: EGD Appointment date/timeframe: 10/06/2020 ordered Referral Ordered: ERCP Appointment date/timeframe: 09/06/2020 ordered Referral Ordered: EUS Appointment date/timeframe: 08/18/2020 ordered Referral Ordered: Halo 90 Appointment date/timeframe: 08/20/2019 ordered Referral Ordered: Halo 360 Appointment date/timeframe: 04/16/2019 ordered History Of Present Illness Encounter Date Complaint History Of Prese nt Illness Comment Patient was seen today for a televisit. Prior to commencing the visit, it was confirmed that he was at home, that his was present per his request. He consented to proceed in this fashion.Patient is a very pleasant 80-year-old man who underwent Halo ablation for multifocal low-grade dysplasia and Ibarra''s esophagus with Dr. Joseph earlier this month. Dr. 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 Today, the patient notes that he has had a queasy" feeling since this procedure, which is starting to get better. His appetite was poor for a week or so, but now is improved. He thinks he may have lost little weight after the procedure, but has now put this back on. Otherwise, he is in his normal state of health. 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 He does take Eliquis regularly as well. He has a maternal history of pancrea GI Symptoms or Concerns Yosi de la rosa is a very nice 79-year-old male who I was asked to see in consultation today at the request of Brayan Sood for Ibarra's esophagus with multifocal low-grade dysplasia. 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 On daily antisecretory PPI therapy, he is largely controlled with very little breakthrough heartburn or regurgitation. He is otherwise doing well with no abdominal pain, no nausea or vomiting. Stable appetite and stable weight. He has a normal bowel habit with no blood in the stool. The patient denies any dysphagia or odynophagia. His recent endoscopy did show Ibarra's esophagus with multifocal low-grade dysplasia and the patient was referred for consideration of ablation. Functional Status Date Functional Assessmen t No Information Instructions Date Instruction Additional Infor larissa Will plan endoscopic follow up, please schedule his follow up egd with Dr. Joseph on a day that I am at [facility] as well. 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
--- OUTSIDE RECORDS SUMMARY | 2024-05-13 00:19 | XMS_ITS | Clinical Summary ---
Author Organization [employer] [facility] Address [place], [place] [address] Care Team Providers Care Maintenance Representative Name Role Phone Ean Colmenares Darron Unavailable [phone] Brayan Sood MD Unavailable [phone] Hoang Agee MD Primary Care Provider Allergies Active Allergy Reactions Criticality Noted Date Comments Amiodarone Other - Describe In Comment Field 04/06/2022 Lung rxn Ramos Tirso Extract Hives 09/08/2019 Medications Medication Sig Dispensed Refills Start Date End Date Status multivitamin (MULTIPLE VITAMINS) tablet Take 1 tablet by mouth once daily. 0 2 Active omega-3 fatty acids-vitamin E (FISH OIL) 1,000 mg cap Take by mouth once daily. 0 2 Active vitamin B complex (B COMPLEX 1) tablet Take 1 tablet by mouth once daily. 0 3 Active vitamin e 400 unit capsule Take 1 capsule by mouth once daily. 0 3 Active ascorbic acid, vitamin C, (VITAMIN C) 500 mg tablet Take 1 tablet by mouth once daily. 0 3 Active cholecalciferol (VITAMIN D3) 1,000 unit tablet Take 1 tablet by mouth once daily. 0 3 Active CALCIUM/MAGNESIUM/Z INC (CALCIUM-MAGNESUIUM -ZINC) 333-133-5 mg tablet Take 1 tablet by mouth. 0 3 Active lutein 20 mg tablet Take 1 tablet by mouth once daily. 0 6 Active nitroglycerin (NITROSTAT) 0.4 mg sublingual tabletIndications:C oronary atherosclerosis due to lipid rich plaque Place 1 tablet under the tongue every 5 minutes if needed for Chest Pain. 25 tablet 1 0 Active blood-glucose meter (TRUE METRIX AIR GLUCOSE METER)Indications:D iabetes mellitus without complication (HC) Dispense meter, test strips, lancets covered by pt ins. E11.9 NIDDM type II - Test 1 time/day 1 Device 0 Active lancets (TRUEPLUS LANCETS) 33 gauge miscIndications:Lauren betes mellitus without complication (HC) As directed. Dispense item covered by pt ins. E11.9 NIDDM type II - Test 1 time/day 100 Each 2 0 Active oxygen-air delivery systems (HOME OXYGEN)Indications: Hypoxia,Interstitia l lung disease (HC) Oxygen for home use. Liters per minute: one per nasal cannula. Frequency of use: With activity;. Length of need: 99 Months. Portable oxygen concentrator and compressed gas tank. 1 Each 2 Active oxygen-air delivery systems (HOME OXYGEN)Indications: Hypoxia Oxygen for home use. Liters per minute: 1 per nasal cannula. Frequency of use: With activity;. Length of need: 99. Months. Nqoje-zh-forhzj device. 1 Each 2 Active oxygen-air delivery systems (HOME OXYGEN)Indications: Hypoxia Oxygen for home use. Liters per minute: one per nasal cannula/cpap machine. Frequency of use: Nocturnal and with activity as needed to keep oxygen level greater than 88%;. Length of need: 99 Months. 1 Each 2 Active sotaloL (BETAPACE) 120 mg tabletIndications:P AF (paroxysmal atrial fibrillation) (HC),Atrial flutter, paroxysmal (HC) Take 1 Tablet (120 mg) by mouth every 12 hours. 180 Tablet 3 3 Active apixaban (Eliquis) 5 mg tabletIndications:P AF (paroxysmal atrial fibrillation) (HC),Atrial flutter, paroxysmal (HC) Take 1 Tablet (5 mg) by mouth two times daily. 180 Tablet 3 3 Active triamcinolone (ARISTOCORT; KENALOG) 0.1 % creamIndications:Ch ronic eczema APPLY TOPICALLY TO AFFECTED AREA(S) THREE TIMES DAILY NEEDED, NOT TO EXCEED 14 DAYS ON ONE LOCATION PER EPISODE. 45 g 2 3 Active Lancing Device (Lancing Device with Lancets) miscIndications:Typ e 2 diabetes mellitus without complication, without long-term current use of insulin (HC) As directed. Requesting Truedraw Lancet device. Test once daily. 100 Each 3 4 Active levothyroxine (SYNTHROID) 50 mcg tabletIndications:E levated TSH Take 1 Tablet (50 mcg) by mouth before breakfast. 90 Tablet 3 4 Active metFORMIN (GLUCOPHAGE XR) 500 mg Extended-Release tabletIndications:T ype 2 diabetes mellitus without complication, without long-term current use of insulin (HC) Take 1 Tablet (500 mg) by mouth two times daily with meals. 180 Tablet 1 4 Active metoprolol succinate (Toprol XL) 50 mg sustained-release tabletIndications:P aroxysmal atrial flutter (HC) Take 1 Tablet (50 mg) by mouth once daily. 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 180 Capsule 3 4 Active tamsulosin (FLOMAX) 0.4 mg capsuleIndications: BPH with urinary obstruction Take 1 Capsule (0.4 mg) by mouth once daily after a meal. 90 Capsule 3 4 Active glipiZIDE (GLUCOTROL) 10 mg tabletIndications:T ype 2 diabetes mellitus without complication, without long-term current use of insulin (HC) Take 1 Tablet (10 mg) by mouth two times daily before meals. 30 Tablet 1 4 Active sotaloL (BETAPACE) 80 mg tabletIndications:T ypical atrial flutter (HC) Take 1 Tablet (80 mg) by mouth two times daily before meals. 180 Tablet 3 4 Active NebulizerIndication s:Interstitial lung disease (HC) Nebulizer, disposable neb kit x 4, reuseable neb kit x 1, mask x 1, filters x 1. Frequency of use: qid; Medication: duoneb Length of need: 99 months 1 Each 4 Active albuterol-ipratropi um (DUONEB) (2.5-0.5 mg) in 3 mL NEBULIZATION solutionIndications :Cough, unspecified type Inhale 3 mL via a nebulizer every 6 hours if needed for Shortness Of Breath. 1080 mL 3 4 Active CPAPIndications:ELISE (obstructive sleep apnea) CPAP (E0601) machine for home use at pressure: 5-16 , Choice of mask (A7030 or A7034) w/full face cushion (A7031) x1/mo, nasal cushion (A7032) x2/mo, or nasal pillows (A7033) x 2/mo; Length of Need: 99 months; Frequency of use: Daily 1 Each 5 4 Active blood sugar diagnostic (True Metrix Glucose Test Strip) stripIndications:Di abetes mellitus without complication (HC) TEST BLOOD SUGAR EVERY DAY 100 Each 3 4 Active atorvastatin (LIPITOR) 80 mg tabletIndications:C oronary atherosclerosis due to lipid rich plaque TAKE 1 TABLET AT BEDTIME 90 Tablet 4 Active benzonatate (TESSALON) 100 mg capsuleIndications: Cough, unspecified type TAKE 1 CAPSULE THREE TIMES DAILY IF NEEDED FOR COUGH 21 Capsule 4 Active atorvastatin (LIPITOR) 80 mg tabletIndications:C oronary atherosclerosis due to lipid rich plaque Take 1 Tablet (80 mg) by mouth at bedtime. 90 Tablet 3 3 024 Discontinued benzonatate (TESSALON) 100 mg capsuleIndications: Cough, unspecified type Take 1 Capsule (100 mg) by mouth 3 times daily if needed for Cough. 21 Capsule 4 024 Discontinued Active Problems Problem Noted Date Diagnosed Date Benign essential HTN 10/28/2023 Stage 3a chronic kidney disease 10/28/2023 Type 2 diabetes mellitus wit hout complication, without long-term current use of insulin 04/26/2023 Coronary atherosclerosis due to lipid rich plaqu e 02/14/2023 TIA (transient ischemic attack) 10/27/2022 023 Heart failure with preserved ejection fraction, unspecified HF chronicity 11/30/2021 Hypoxia 11/30/2021 Interstitial lung disease 11/30/2021 Hypothyroidism (acquired) 11/30/2021 Obstructive sleep apnea 06/24/2018 Paroxysmal atrial flutter with rapid ventricular response 09/20/2016 Sinus node dysfunction 09/20/2016 Tachycardia-bradycardia syndrome 09/20/2016 ACP (advance care planning) 12/04/2011 Overview (12/04/2011): Patient has identified Health Care Agent(s): Yes Add Health Care Agents: Yes Health Care Agent(s): Primary Health Care Agent: Tigist Choi Relationship: Secondary Health Care Agent: Shalom Choi Relationship: son Patient has Advance Care Plan Documents (Health Care Directive, POLST): Yes Advance Care Plan Documents: Health Care Directive Patient has identified Specific Treatment Preferences: Yes Specific Treatment Preferences: a.) Code Status: CPR/Attempt Resuscitation b.) Goals of Treatment: Limited Interventions and treat reversible conditions. Provide interventions aimed at treatment of new or reversible illness/injury or non-life threatening chronic conditions. Duration of invasive or uncomfortable interventions should generally be limited. 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 On 08/14/05. Abnormal cardiovascular stress test 01/02/2021 Encounters Date Type Department Care Team Description 04/27/2024 Telephone [facility] [address] [place] [address] Hoang Agee MD 04/23/2024 Travel 04/20/2024 1:00 PM CDT Ancillary Procedure [facility] [address] [place] [address] 04/20/2024 Travel 04/10/2024 Refill [facility] [address] [place] [address] Hoang Agee MD Refill Request (Atorvastatin, Benzonatate) 04/01/2024 Refill [facility] [address] [place] [address] Hoang Agee MD Refill Request (True Metrix Glucose Test Strip) 03/26/2024 Telephone [facility] [address] [place] [address] Hoang Agee MD Questions (OXYGEN USAGE) 03/11/2024 Telephone [facility] [address] [place] [address] Luz Dunham NP DME Supply 03/09/2024 Telephone [facility] [address] [place] [address] Hoang Agee MD Apnea (CPAP SUPPLIES) from Last 3 Months Immunizations Name Administration Dates Next Due COVID-19 vaccine (Pfizer-Bio NTech 30mcg/0.3mL) 12YO+ BIVALENT PF, MDV 04/06/2022 COVID-19 vaccine (Pfizer-Bio NTech 30mcg/0.3mL) 12YO+ VINOD-SUCROSE PF, MDV 11/30/2021 COVID-19 vaccine (Pfizer-Bio NTech 30mcg/0.3mL) PF, MDV 10/11/2020,09/20/2020 Influenza, High-dose Inactivated 05/04/2016,04/21,04/08/2014 Influenza, High-dose Quadriv alent Inactivated 05/02/2021,03/08/2020 Influenza, IIV3 (Age >=3 years) 03/25/2012,05/13,05/19/2004 Influenza, Inactivated AIIV4 (Age 65+ Years) Preserv Free 04/26/2023,04/06/2022 Influenza, Inactivated IIV3 (Age 65+ Years) Preserv Free 06/02/2019,05/06/2018,06/05/2017 Pneumococcal Conj 20-valent (Prevnar 20) 023 Pneumococcal Poly,23-Valent (Pneumovax) 03/18/20 07 Pneumococcal conj 13-Valent (Prevnar 13) 015 Td (Age >=7 Years) 11/23/1996 Tdap 11/06/2016,03/18/2007 Zoster (Shingrix-RZV, recombinant) 06/04/2020, Zoster (Zostavax-ZVL, live) 08/02/2009 Family History Medical History Relation Name Comments Diabetes Brother two brothers wi th diabetes Diabetes Mother Anesthesia Problem No Family History Relation Name Status Comments Brother Father Mother Social History Tobacco Use Types Packs/Day Years Used Date Smoking Tobacco: Former Cigarettes 2 10 0 07/22/1956 - 07/22/1966 Smokeless Tobacco: Never Tobacco Cessation:Counseling Given: Yes Alcohol Use Standard Drinks/Week Comments No 0 (1 standard drink = 0.6 oz pur e alcohol) PHQ-2 Answer Date Recorded PHQ-2 TOTAL SCORE 0 04/26/2023 Social Connections Answer Date Recorded Frequency of Communication with Friends and Fami ly 0 10/24/2023 Financial Resource Strain Answer Date R ecorded Difficulty of Paying Living Expenses 3 10/24/2023 Difficulty of Paying Living Expenses Not on file 10/24/2023 Food Insecurity Answer Date Recorded Worried About Running Out of Food in the Last Ye ar 1 10/24/2023 Transportation Needs Answer Date Record ed Lack of Transportation (Medical) 1 10/24/2023 Housing Stability Answer Date Recorded Unable to Pay for Housing in the Last Year 1 10/24/2023 Sex and Gender Information Value Date Recorded Sex Assigned at Not on file Gender Identity Not on file Sexual Orientation Not on file Obstetrics History Last Filed Vital Signs Vital Sign Reading Time Taken Comments Blood Pressure 137/76 02/06/2024 11:32 AM CDT Pulse 78 02/06/2024 11:32 AM CDT Temperature 36.4 ??C (97.5 ??F) 2021 10:42 AM C DT Respiratory Rate 18 10/06/2020 10:45 AM CDT Oxygen Saturation 80% 02/06/2024 11:32 AM CDT Inhaled Oxygen Concentration - - Weight 65.1 kg (143 lb 9.6 oz) 02/06/2024 11:32 AM CDT Height 167.1 cm (5' 5.79) 02/04/2024 10:57 AM C DT Body Mass Index 23.33 02/04/2024 10:57 AM CDT Plan of Treatment Not on file Medical Devices Implanted Type Area Field Coil Winder Device Identifier Shelf Expiration Date Model / Serial / Lot Dual Chamber Pacemaker Implanted:08/2016 by Elsie Enriquez MD (Quantity not on file) Standard Pacemaker [employer] ACCOLADE BOB CERON [id number] / [id number] / Stent Pancreatic [id number] Advanix Stra [place] [address] - [id number] Implanted:Qty: 1 on 09/06/2020 by Shakir Dolan MD at [facility] N/A: Pancreas [facility] [place] [facility] 03/01/2021 [id number] / / [id number] Procedures Procedure Name Priority Date/Time Associated Diagnosis Comments ECHO TTE COMPLETE W CONTRAST Routine 04/20/2024 2:21 PM CDT Pulmonary hypertension (HC) from Last 3 Months Results * ECHO TTE COMPLETE W CONTRAST (04/20/2024 2:21 PM CDT) AORTIC VALVE MEAN PG 5 mmHg PEAK TR VELOCITY 4.2 m/s LVEDD 4.6 cm EJECTION FRACTION 40 - 45% Anatomical Region Laterality Modality Ultrasound 04/20/2024 1:11 PM CDT Narrative 04/20/2024 4:19 PM CDT ECHOCARDIOGRAM YOSI Darron CHOI ? Accession#: ?? [id number] : ?1940 84 years Study Date: ?? 04/20/2024 1:11:10 PM Gender: M ?BP: ? 128/67 mmHg Height: 168.00 cm ?BSA: ?1.73 m? ? ? Weight: 64.00 kg ? Tech: ? MTS ? Referring MD: RAGHAVENDRA LYLE Site: ? [facility] Reading Location: MOBILE OP Patient Location: Outpatient. Procedure: Color Doppler, Spectral Doppler and 2D w/ Contrast. Indication for study: Pulmonary hypertension (HC) Cardiac Rhythm: Regular.Study quality: Fair. Final Impressions: 1. Normal LV size, mildly increased wall thickness, mildly reduced global systolic function with an estimated EF of 40 - 45%. 2. Mid septum segment, apical septum segment, and apical lateral segment are abnormal. 3. Echo contrast was administered to enhance visualization of all left ventricular segments. 4. Right ventricular cavity size is mildly enlarged, global systolic RV function is normal. 5. Severely enlarged left atrium. 6. The aortic valve is sclerotic, no stenosis and trivial regurgitation. 7. The mitral valve is sclerotic, trace mitral regurgitation. 8. Tricuspid valve is tethered. 9. Moderate tricuspid regurgitation. 10. Severely increased estimated pulmonary pressures by tricuspid regurgitation velocity and right atrial pressure (71 mmHg plus RAP). 11. No pericardial effusion. Chamber Sizes and Function Normal left ventricular size, mildly increased wall thickness, mildly reduced global systolic function with an estimated EF of 40 - 45%. Left atrial size is severely enlarged. Right ventricular cavity size is mildly enlarged, global systolic RV function is normal. The right atrium is normal. Right atrial volume index is 30 ml/m? ? ?. Right atrial area is 18 cm? ? ?. The pulmonary artery is not well visualized. The sinus of Valsalva is normal sized. The ascending aorta is normal sized. The mid septum segment and apical septum segment are akinetic. The apical lateral segment is hypokinetic. Valves, RV Pressures and Diastolic Function The aortic valve is sclerotic, no stenosis and trivial regurgitation. The mitral valve is sclerotic, trace mitral regurgitation. Spectral Doppler shows Grade 1 pattern of LV diastolic filling. The tricuspid valve is tethered. Tricuspid regurgitation is moderate. The tricuspid regurgitant velocity is 4.2 m/s, the estimated right ventricular systolic pressure is 71 mmHg plus right atrial pressure. There is severely increased estimated pulmonary pressure by tricuspid regurgitation velocity and right atrial pressure. The pulmonic valve is normal. Trace pulmonary regurgitation. Masses, Effusion, Shunts There is no pericardial effusion. The inferior vena cava is normal sized, respiratory size variation greater than 50%. Interatrial septum is not well visualized. MEASUREMENTS AND CALCULATIONS 2-D Measurements and LV Function: LVID (d) 4.6 cm LV FS% (2D) ?? 33 % LVID (s) 3.1 cm LVOT diameter 2.0 cm IVS (d) ??1.2 cm HR ?69 bpm LVPW (d) 1.0 cm LA Vol index ??50 ml/m2 Ao Sinus 3.5 cm RA Vol index ??30 ml/m2 Asc Ao ?? 3.4 cm RA area ? 18 cm? ? ? Diastology: Mitral ?Tissue Doppler ?Pulmonary veins E Peak 0.7 m/s ??e', Septum ? 0.04 m/s Pulm s ?59.6 cm/s A Peak 0.9 m/s ?Pulm d ?38.4 cm/s E/A ?0.8 ?Pulm s/d ratio ??1.55 DT ? 216 msec Aortic Valve: Vmax ? 1.5 m/s ??CHARU (V) ?? 1.74 cm? ? ? VTI ?0.31 m ?? CHARU (I) ?? 2.04 cm? ? ? LVOT V max 0.8 m/s ??Max PG ?9 mmHg LVOT VTI ?? 0.20 m ?? Mean PG ?? 5 mmHg SV ? 63 ml ?Dim Index 0.65 SV index ?? 36 ml/m? ? ? CO ?4.3 l/min ?CI ?2.5 l/min/m? ? ? Mitral Valve: MVA ?3.5 cm? ? ? MV P 1/2 63 msec Tricuspid Valve and estimated PA pressures: TR Vmax 4.2 m/s TAPSE 2.0 cm TR maxG 71 mmHg Contrast documentation: 8 ml diluted Definity, lot #[id number], [facility]# [id number] was administered peripherally to enhance visualization of all left ventricular segments. . This study was interpreted by an [facility] accredited facility. CC: HIM ([facility]) [facility]. ??Final ?? Procedure Note Nuzhat Beckford, [facility] - 04/20/2024 ECHOCARDIOGRAM YOSI CHOI : 1940 84 years Study Date: 04/20/2024 1:11:10 PM Gender: M BP: 128/67 mmHg Height: 168.00 cm BSA: 1.73 m? ? ? Weight: 64.00 kg Tech: [facility] Referring MD: RAGHAVENDRA LYLE Site: [facility] Reading Location: MOBILE OP Patient Location: Outpatient. Procedure: Color Doppler, Spectral Doppler and 2D w/ Contrast. Indication for study: Pulmonary hypertension (HC) Cardiac Rhythm: Regular.Study quality: Fair. Final Impressions: 1. Normal LV size, mildly increased wall thickness, mildly reduced globalsystolic function with an estimated EF of 40 - 45%. 2. Mid septum segment, apical septum segment, and apical lateral segmentare abnormal. 3. Echo contrast was administered to enhance visualization of all leftventricular segments. 4. Right ventricular cavity size is mildly enlarged, global systolic RVfunction is normal. 5. Severely enlarged left atrium. 6. The aortic valve is sclerotic, no stenosis and trivialregurgitation. 7. The mitral valve is sclerotic, trace mitral regurgitation. 8. Tricuspid valve is tethered. 9. Moderate tricuspid regurgitation. 10. Severely increased estimated pulmonary pressures by tricuspidregurgitation velocity and right atrial pressure (71 mmHg plus RAP). 11. No pericardial effusion. Chamber Sizes and Function Normal left ventricular size, mildly increased wall thickness, mildlyreduced global systolic function with an estimated EF of 40 - 45%. Leftatrial size is severely enlarged. Right ventricular cavity size is mildlyenlarged, global systolic RV function is normal. The right atrium isnormal. Right atrial volume index is 30 ml/m? ? ?. Right atrial area is 18cm? ? ?. The pulmonary artery is not well visualized. The sinus of Valsalvais normal sized. The ascending aorta is normal sized. The mid septumsegment and apical septum segment are akinetic. The apical lateral segmentis hypokinetic. Valves, RV Pressures and Diastolic Function The aortic valve is sclerotic, no stenosis and trivial regurgitation. Themitral valve is sclerotic, trace mitral regurgitation. Spectral Dopplershows Grade 1 pattern of LV diastolic filling. The tricuspid valve istethered. Tricuspid regurgitation is moderate. The tricuspid regurgitantvelocity is 4.2 m/s, the estimated right ventricular systolic pressure is71 mmHg plus right atrial pressure. There is severely increased estimatedpulmonary pressure by tricuspid regurgitation velocity and right atrialpressure. The pulmonic valve is normal. Trace pulmonary regurgitation. Masses, Effusion, Shunts There is no pericardial effusion. The inferior vena cava is normal sized,respiratory size variation greater than 50%. Interatrial septum is notwell visualized. MEASUREMENTS AND CALCULATIONS 2-D Measurements and LV Function: LVID (d) 4.6 cm LV FS% (2D) 33 % LVID (s) 3.1 cm LVOT diameter 2.0 cm IVS (d) 1.2 cm HR 69 bpm LVPW (d) 1.0 cm LA Vol index 50 ml/m2 Ao Sinus 3.5 cm RA Vol index 30 ml/m2 Asc Ao 3.4 cm RA area 18 cm? ? ? Diastology: Mitral Tissue Doppler Pulmonary veins E Peak 0.7 m/s e', Septum 0.04 m/s Pulm s 59.6 cm/s A Peak 0.9 m/s Pulm d 38.4 cm/s E/A 0.8 Pulm s/d ratio 1.55 DT 216 msec Aortic Valve: Vmax 1.5 m/s CHARU (V) 1.74 cm? ? ? VTI 0.31 m CHARU (I) 2.04 cm? ? ? LVOT V max 0.8 m/s Max PG 9 mmHg LVOT VTI 0.20 m Mean PG 5 mmHg SV 63 ml Dim Index 0.65 SV index 36 ml/m? ? ? CO 4.3 l/min CI 2.5 l/min/m? ? ? Mitral Valve: MVA 3.5 cm? ? ? MV P 1/2 63 msec Tricuspid Valve and estimated PA pressures: TR Vmax 4.2 m/s TAPSE 2.0 cm TR maxG 71 mmHg Contrast documentation: 8 ml diluted Definity, lot #[id number], [facility]#[id number] was administered peripherally to enhance visualization of allleft ventricular segments. . This study was interpreted by an [facility] accredited facility. CC: ANETTE (med records) [facility]. 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 Healthcare Directive 09/20/2016 12:00 AM 09/19/16 Healthcare Directive 12/05/2011 11:11 AM H CD * Full Code (Latest Code Status on File) Date Activated Date Inactivated Comments 10/06/2020 9:55 AM 10/06/2020 1:27 PM Question Answer Comments Code Status Discussion: Discussed * Full Code Date Activated Date Inactivated Comments 09/06/2020 10:34 AM 09/06/2020 7:29 PM Question Answer Comments Code Status Discussion: Discussed * Full Code Date Activated Date Inactivated Comments 08/18/2020 8:21 AM 08/18/2020 1:05 PM Question Answer Comments Code Status Discussion: Discussed * Full Code Date Activated Date Inactivated Comments 03/31/2020 9:43 AM 03/31/2020 1:50 PM Question Answer Comments Code Status Discussion: Discussed * Full Code Date Activated Date Inactivated Comments 04/16/2019 1:00 PM 04/16/2019 4:47 PM Care Teams Maintenance Representative Relationship Specialty Start Date End Date Hoang Agee MD [address] [place] [address] PCP - General Family Practice 07/12/20 Ean Colmenares [address] [place] [id number] Admittance Attendant 09/04/11 Brayan Sood MD [address] [place] [address] Gastroenterology 09/05/12
== END 2024-04-26 12:14 | disposition home or self-care (01) ==
LOC: AMB 05-13 00:15
PROVIDERS: PCP Family Medicine; Visit Provider Student in an Organized Health Care Education/Training Program
DX: I46.9 Cardiac arrest, cause unspecified (principal)